=== PATIENT | male | born 1940 | race Caucasian/White ===

== ENCOUNTER 2017-02-08 16:00 | Outpatient (RCR) | payer MEDICARE, OTHER, SELFPAY | END 2017-03-02 | LOC: PT 16:00 | PROVIDERS: PCP Internal Medicine Adolescent Medicine; Visit Provider Internal Medicine Adolescent Medicine | DX: R42 Dizziness and giddiness (principal); H81.12 Benign paroxysmal vertigo, left ear | CPT/HCPCS: G8981; G8982; G8983; 97110; 97140; 97161 ==

== ENCOUNTER → 2017-03-30 08:47 | Outpatient (CLI) | payer MEDICARE, OTHER, SELFPAY ==
[2017-03-30 11:27] LABS: Alanine Aminotransferase 23 U/L (12-78); Albumin Level 3.9 gm/dL (3.4-5.0); Alkaline Phosphatase 94 U/L (46-116); Aspartate Amino Transferase 19 U/L (15-37); Bilirubin,Direct 0.3 mg/dL (0.0-0.2); Bilirubin,Total 1.2 mg/dL (0.2-1.0); Chol/HDL Ratio 2.6 (1-3.5); Cholesterol 125 mg/dL (140-200); HDL Cholesterol 49 mg/dL (27-67); LDL Cholesterol 68 mg/dL (0-130); Total Protein,Serum 6.8 gm/dL (6.4-8.2); Triglycerides 41 mg/dL (30-200); VLDL Cholesterol 8 mg/dL (0-40)
== END ==
PROVIDERS: PCP Internal Medicine Adolescent Medicine; Visit Provider Internal Medicine
DX: I25.10 Atherosclerotic heart disease of native coronary artery without angina pectoris (principal); I10 Essential (primary) hypertension; E78.5 Hyperlipidemia, unspecified; R01.1 Cardiac murmur, unspecified
CPT/HCPCS: 36415; 80061; 80076

== ENCOUNTER → 2017-09-26 08:37 | Outpatient (CLI) | payer MEDICARE, OTHER, SELFPAY ==
[2017-09-26 10:01] LABS: Alanine Aminotransferase 19 U/L (12-78); Albumin Level 3.7 gm/dL (3.4-5.0); Alkaline Phosphatase 96 U/L (46-116); Aspartate Amino Transferase 14 U/L (15-37); Bilirubin,Direct 0.2 mg/dL (0.0-0.2); Bilirubin,Indirect 0.6 mg/dL (0.0-0.9); Bilirubin,Total 0.8 mg/dL (0.2-1.0); Chol/HDL Ratio 2.7 (1-3.5); Cholesterol 114 mg/dL (140-200); HDL Cholesterol 43 mg/dL (27-67); LDL Cholesterol 62 mg/dL (0-130); Total Protein,Serum 6.5 gm/dL (6.4-8.2); Triglycerides 47 mg/dL (30-200); VLDL Cholesterol 9 mg/dL (0-40)
== END ==
PROVIDERS: Visit Provider Internal Medicine
DX: E78.5 Hyperlipidemia, unspecified (principal)
CPT/HCPCS: 36415; 80061; 80076

== ENCOUNTER → 2018-07-15 14:58 | Outpatient (CLI) | payer MEDICARE, BC, SELFPAY ==
--- NOTE | 2018-07-15 15:10 | XR_ITS ---
XR chest 2V HISTORY: ITS.REASON: sob ORDERING PHYSICIAN: Cyndie Leiva APRN PATIENT AGE: 78 years COMPARISON: 07/19/2016 FINDINGS: The cardiomediastinal silhouette and pulmonary vascularity are within normal limits. Stable 7 mm nodule left upper lobe. No lobar consolidation or collapse. Coronary artery calcification noted. No acute bony abnormalities. IMPRESSION: No acute finding. Coronary artery calcification
[2018-07-15 15:18] LABS: Basophils # 0.1 K/mm3 (0-0.2); Basophils % 0.6 % (0.1-2.0); Eosinophils # 0.2 K/mm3 (0.0-0.4); Hematocrit 39.6 % (42.0-52.0); Hemoglobin 13.3 g/dL (14.1-18.0); Lymphocytes # 1.9 K/mm3 (0.7-4.5); Mean Corpuscular HGB Conc 33.6 g/dL (31.8-35.4); Mean Corpuscular Hemoglobin 31.4 pg (27.0-31.2); Mean Corpuscular Volume 93.5 fl (80-94); Mean Platelet Volume 9.2 fl (7.4-10.4); Monocytes # 0.4 K/mm3 (0.1-1.0); Monocytes % 4.5 % (1.7-9.3); Neutrophils # 5.6 K/mm3 (1.8-7.8); Neutrophils % 68.9 % (37.0-80.0); Platelet Count 183 K/mm3 (142-424); Red Blood Count 4.24 M/mm3 (4.60-6.20); Red Cell Distribution Width 12.9 % (11.5-17.5); White Blood Count 8.1 K/mm3 (4.8-10.8)
[2018-07-15 16:49] LABS: Troponin I < 0.02 ng/ml (0.00-0.06)
[2018-07-15 16:55] LABS: Alanine Aminotransferase 25 U/L (12-78); Albumin Level 3.6 gm/dL (3.4-5.0); Alkaline Phosphatase 99 U/L (46-116); Anion Gap 12.5 mEq/L (5-15); Aspartate Amino Transferase 15 U/L (15-37); Bilirubin,Direct 0.2 mg/dL (0.0-0.2); Bilirubin,Indirect 0.5 mg/dL (0.0-0.9); Bilirubin,Total 0.7 mg/dL (0.2-1.0); Blood Urea Nitrogen 22 mg/dL (7-18); Calcium 8.8 mg/dL (8.5-10.1); Carbon Dioxide 26 mmol/L (21.0-32.0); Chloride 108 mmol/L (98-107); Creatinine,Serum 1.11 mg/dL (0.70-1.30); Estimated Glomerular Filt Rate 64 ml/min (>60); GFR (African American) 78 ML/MIN (>60); Glucose 125 mg/dL (74-106); Potassium 4.5 mmoL/L (3.5-5.1); Sodium 142 mmol/L (136-145); Thyroid Stimulating Hormone 0.06 uIU/ml (0.358-3.740); Total Protein,Serum 6.8 gm/dL (6.4-8.2)
[2018-07-15 18:22] LABS: D-Dimer 793 ng/mL (0-400)
== END ==
PROVIDERS: Visit Provider Nurse Practitioner Family
DX: E78.5 Hyperlipidemia, unspecified (principal); I11.9 Hypertensive heart disease without heart failure; I25.10 Atherosclerotic heart disease of native coronary artery without angina pectoris; R06.02 Shortness of breath
CPT/HCPCS: 36415; 71046; 80048; 80076; 83880; 84439; 84443; 84484; 85025; 85378

== ENCOUNTER → 2018-07-16 09:35 | Outpatient (CLI) | payer MEDICARE, BC, SELFPAY ==
--- NOTE | 2018-07-16 09:53 | CT_ITS ---
CT angio chest HISTORY: Shortness of air, elevated d-dimer ITS.REASON: for PE protocol ORDERING PHYSICIAN: Cyndie Leiva APRN PATIENT AGE: 78 years COMPARISON: 02/22/2011 TECHNIQUE: Axial images obtained following the administration of 75 mL of Optiray 350 . Sagittal, and coronal reformatted images are also generated and reviewed. All CT scans at the facility use one or more dose reduction, viz: automated exposure control, ma/kV adjustment per patient size (including targeted exams where dose is matched to indication, i.e. head), or iterative reconstruction technique. FINDINGS: No evidence of pulmonary embolus. There is mild dilatation of the ascending aorta at 4.3 cm. There is mild dilatation of the proximal descending thoracic aorta at 4 cm. Scattered small nodes are present in the mediastinum and right hilum not significant change. Coronary artery calcifications are present. There is COPD with hyperinflation and attenuation of the peripheral pulmonary vessels. No lobar consolidation or collapse. There is some pleural calcification in the left upper lobe anteriorly. Mild atelectatic or fibrotic changes are present in the left lower lobe anteriorly. Upper abdominal images show prior cholecystectomy. There is diverticulosis of the colon. Degenerative changes are present of the thoracic spine. IMPRESSION: 1. No evidence of pulmonary embolus. 2. Mild dilatation of the ascending and descending aorta. 3. No acute finding
== END ==
PROVIDERS: PCP Internal Medicine Adolescent Medicine; Visit Provider Nurse Practitioner Family
DX: R06.02 Shortness of breath; R79.89 Other specified abnormal findings of blood chemistry; E78.5 Hyperlipidemia, unspecified; I11.9 Hypertensive heart disease without heart failure; I25.10 Atherosclerotic heart disease of native coronary artery without angina pectoris; I48.91 Unspecified atrial fibrillation; R00.1 Bradycardia, unspecified; R01.1 Cardiac murmur, unspecified; Z95.5 Presence of coronary angioplasty implant and graft; G47.33 Obstructive sleep apnea (adult) (pediatric)
CPT/HCPCS: 71275

== ENCOUNTER → 2018-07-18 07:08 | Outpatient (CLI) | payer MEDICARE, BC, SELFPAY ==
--- NOTE | 2018-07-18 07:09 | NM_ITS ---
CARDIOLITE SPECT MYOCARDIAL PERFUSION LEXISCAN, REST AND STRESS: History: Coronary disease, hyperlipidemia, family history, shortness of breath. Procedure: Patient exercised on Dev protocol 6 metastases, resting heart rate was 80 bpm resting blood pressure 156/82, with exercise maximum heart rate achieved was 1 31 bpm which is greater than 85% of the maximum predicted heart rate and a blood pressure was 170/80. Test was stopped due to fatigue patient denied complained of chest pain. Patient has adequate exercise capacity achieved 7mets of workload on treadmill, the blood pressure response to exercise was adequate. Electrocardiogram: Resting electrocardiogram showed sinus rhythm premature ventricular complex, with exercise there is less than 1.[address] segment depression noted from the baseline EKG. The EKG portion of the exercise Myoview is negative for ischemia. Cardiac stress and resting SPECT images: Cardiac stress and rest SPECT images were obtained using technetium 99 Myoview 31.0 mCi stress and 10.8 mCi at rest. Gated SPECT further analysis of segmental wall motion and calculation of the ejection fraction also done. Cardiac stress and resting SPECT images show uniform myocardial activity without segmental perfusion abnormality, computer derived ejection fraction is 50% with no regional wall motion abnormality, right ventricle is normal size and contractility. Conclusion: 1. The EKG portion of the exercise Myoview is negative for ischemia, patient has adequate exercise capacity achieved 7mets of workload on treadmill, the blood pressure response to exercise was adequate, there was no exercise-induced chest discomfort. 2. No scintigraphic evidence of reversible ischemia seen at this level of exercise, computer derived ejection fraction 50% no regional wall motion abnormality, right ventricle is normal size and contractility. 3. Normal exercise Myoview study.
--- NOTE | 2018-07-18 07:09 | CA_ITS ---
PROCEDURE: 2-D M-mode and color Doppler study INDICATIONS FOR THE TEST: Chest pain COPD Heart Murmur Tobacco Smoking Palpitations Fatigue Syncope Edema Hypertension+Diabetes Mellitus Rheumatic Fever SOB DOMINGUEZ Obesity Hyperlipidemia+ Family History HD Additional History PATIENT INFORMATION HEIGHT: 69 WEIGHT: 202 GENDER: Male B/P: 155/89 2-D/M-MODE INTERPRETATION: 2-D MEASUREMENTS OBSERVED VALUES IN CMS Right Ventricular Dimension (RVDd) 2.7 Interventricular Septum (Thickness)(IVsd) 1.3 Left Ventricular Internal Dimensions(LVIDd) 5.0 Left Ventricular Posterior Wall (Thickness)(LVPWd) 1.2 Aortic Root 3.2 Aortic Cusp Separation 2.2 Left Atrial Dimensions (LAD) 3.9 2D 1. Left atrium is mildly enlarged, left ventricle is normal size, mild concentric left ventricular hypertrophy, visually estimated ejection fraction 55% with no regional wall motion abnormality. 2. The right atrium and the ventricular normal size and contractility. 3. The aortic valve is thickened and gastritis leaflet continue to display mobility. 4. The mitral and tricuspid valve leaflets are minimally thickened. 5. The pulmonic valve is poorly present. 6. No significant pericardial effusion noted. DOPPLER INTERROGATION: Doppler interrogation of the aortic, mitral and tricuspid valvular presence of mild to moderate mitral and mild tricuspid regurgitation, tricuspid regurgitation jet velocity is inadequate for calculation of the right ventricular systolic pressure, grade 1 diastolic dysfunction seen with tissue Doppler evidence of raised left atrial pressure. CONCLUSION: 1. Mildly enlarged left atrium, normal left ventricular size, mild concentric left ventricular hypertrophy, visually estimated ejection fraction 55% with no regional wall motion abnormality, grade 1 diastolic dysfunction seen with tissue Doppler evidence of raised left atrial pressure. 2. Thickened and calcified aortic valve without aortic stenosis aortic insufficiency. 3. Mild to moderate mitral and mild tricuspid regurgitation 4. No significant pericardial effusion noted.
--- NOTE | 2018-07-18 09:42 | HMH.ITSHM ---
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 [] CELECOXIB ASA ATORVASTATIN LEVOTHYROXINE DEXILANT HCTZ DOXAZOSIN
== END ==
PROVIDERS: PCP Internal Medicine Adolescent Medicine; Visit Provider Nurse Practitioner Family
DX: E78.5 Hyperlipidemia, unspecified (principal); I11.9 Hypertensive heart disease without heart failure; I25.10 Atherosclerotic heart disease of native coronary artery without angina pectoris; R06.02 Shortness of breath
CPT/HCPCS: 78452; 93017; 93306; A9502

== ENCOUNTER → 2018-07-31 13:31 | Outpatient (CLI) | payer MEDICARE, BC, SELFPAY ==
[2018-07-31 15:38] LABS: Thyroid Stimulating Hormone 0.07 uIU/ml (0.358-3.740)
[2018-07-31 17:40] LABS: Hemoglobin A1C 5.9 % (0.0-7.0)
[2018-08-02 07:34] LABS: Vitamin D 25 Hydroxy 42.8 ng/mL (30.0-100.0)
[2018-08-02 08:46] LABS: Vitamin B12 848 pg/mL (232-1245)
== END ==
PROVIDERS: Visit Provider Nurse Practitioner Family
DX: R73.09 Other abnormal glucose (principal); R53.83 Other fatigue
CPT/HCPCS: 36415; 82607; 82652; 83036; 84443

== ENCOUNTER → 2018-08-08 11:38 | Outpatient (CLI) | payer MEDICARE, BC, SELFPAY ==
--- NOTE | 2018-08-08 11:48 | XR_ITS ---
XR chest 2V HISTORY: ITS.REASON: SOB ORDERING PHYSICIAN: Alethea Loera APRN PATIENT AGE: 78 years COMPARISON: 07/15/2018 FINDINGS: The cardiomediastinal silhouette and pulmonary vascularity are within normal limits. No lobar consolidation or collapse. There is a nodular opacity left upper lobe anteriorly containing a central lucency. This represents a partially calcified lesion as noted on the recent CT scan of 07/16/2018. No acute bony abnormalities. IMPRESSION: No change with no acute finding
== END ==
PROVIDERS: PCP Internal Medicine Adolescent Medicine; Visit Provider Nurse Practitioner Family
DX: R06.02 Shortness of breath (principal)
CPT/HCPCS: 71046

== ENCOUNTER → 2018-09-12 14:16 | Outpatient (CLI) | payer MEDICARE, BC, SELFPAY ==
[2018-09-12 15:13] LABS: Basophils # 0.1 K/mm3 (0-0.2); Basophils % 0.5 % (0.1-2.0); Eosinophils # 0.3 K/mm3 (0.0-0.4); Eosinophils % 3.4 % (0.1-12.0); Hematocrit 37.8 % (42.0-52.0); Hemoglobin 12.2 g/dL (14.1-18.0); Lymphocytes # 1.9 K/mm3 (0.7-4.5); Lymphocytes % 21.5 % (10-50); Mean Corpuscular HGB Conc 32.4 g/dL (31.8-35.4); Mean Corpuscular Hemoglobin 29.8 pg (27.0-31.2); Mean Corpuscular Volume 92.1 fl (80-94); Mean Platelet Volume 8.5 fl (7.4-10.4); Monocytes # 0.4 K/mm3 (0.1-1.0); Monocytes % 4.4 % (1.7-9.3); Neutrophils # 6.2 K/mm3 (1.8-7.8); Neutrophils % 70.2 % (37.0-80.0); Platelet Count 177 K/mm3 (142-424); Red Cell Distribution Width 13.1 % (11.5-17.5); White Blood Count 8.9 K/mm3 (4.8-10.8)
[2018-09-12 15:54] LABS: Anion Gap 13.2 mEq/L (5-15); Blood Urea Nitrogen 22 mg/dL (7-18); Calcium 8.7 mg/dL (8.5-10.1); Carbon Dioxide 24 mmol/L (21.0-32.0); Chloride 109 mmol/L (98-107); Creatinine,Serum 1.21 mg/dL (0.70-1.30); Estimated Glomerular Filt Rate 58 ml/min (>60); GFR (African American) 70 ML/MIN (>60); Glucose 125 mg/dL (74-106); Potassium 4.2 mmoL/L (3.5-5.1); Sodium 142 mmol/L (136-145)
== END ==
PROVIDERS: Visit Provider Otolaryngology
DX: Z01.818 Encounter for other preprocedural examination (principal); C44.319 Basal cell carcinoma of skin of other parts of face
CPT/HCPCS: 36415; 80048; 85025; 93005

== ENCOUNTER → 2019-01-16 12:56 | Outpatient (CLI) | payer MEDICARE, BC, SELFPAY ==
--- NOTE | 2019-01-16 12:58 | MR_ITS ---
PROCEDURE: MR SHOULDER RT WO CON CLINICAL INDICATION: ROTATOR CUFF SYNDROME OF RIGHT SHOULDER Right shoulder pain, injury with pain with limited range of motion COMPARISON: No exams were available for comparison TECHNIQUE: Routine multiplanar multi echo sequences are performed without gadolinium enhancement. FINDINGS: There are complete tears of the supraspinatus and infraspinatus tendons. There is moderate retraction of the infraspinatus musculotendinous fibers and mild retraction of the supraspinatus musculotendinous fibers. Fluid is present in the sub acromial region with heterogeneous increased T2 signal in the subacromial fat. Hypertrophic changes are present at the acromioclavicular joint. There is high-riding humeral head. The subscapularis and teres minor tendons appear intact. No obvious labral tear. There is a small shoulder joint effusion. There is thinning of the bicipital tendon. Cannot confirm that the bicipital tendon is intact above the bicipital groove. Bicipital tendon is not well-visualized routinely in this area. Small amount fluid is present in the bicipital tendon sheath. IMPRESSION: 1. Complete tear is of the supraspinatus and infraspinatus tendons with retraction of the musculotendinous fibers with high-riding humeral head and osteoarthritic changes of the acromioclavicular joint. 2. Shoulder joint effusion. 3. Thinning of the bicipital tendon with fluid in the bicipital tendon sheath. Cannot confirm that the bicipital tendon is intact above the bicipital groove. Dictated by: Brodie Hamilton MD 01/18/2019 07:00 Electronically signed by Brodie Hamilton MD in [place] 01/18/2019 07:00
== END ==
PROVIDERS: PCP Internal Medicine Adolescent Medicine; Visit Provider Internal Medicine Adolescent Medicine
DX: M75.101 Unspecified rotator cuff tear or rupture of right shoulder, not specified as traumatic (principal)
CPT/HCPCS: 73221

== ENCOUNTER 2019-09-20 10:53 | Inpatient (IN) | payer MEDICARE, BC, SELFPAY ==
[2019-09-20] VITALS (8 sets, daily range): BP systolic 113–164; BP diastolic 60–79; PULSE 51–80; RESP 16–20; TEMP 36.6–37.2; O2SAT 95–99; BMI 31.0; BMI 28.7
--- NOTE | 2019-09-20 11:34 | CT_ITS ---
PROCEDURE: CT ABDOMEN W CON Patient Age:79Y CLINICAL HISTORY: Upper epigastric pain, this morning COMPARISON: [facility] CT angio chest from 07/16/2018 TECHNIQUE: 70 mL Optiray 350; IV contrast utilized. Axial images obtained with sagittal and coronal reformats. All CT scans at the facility use one or more dose reduction, viz: automated exposure control, ma/kV adjustment per patient size (including targeted exams where dose is matched to indication, i.e. head), or iterative reconstruction technique. FINDINGS: Pancreas: Ill-defined inferior margin and hazy stranding from the inferior margin of the pancreas into the root of the mesentery-findings suspect for acute pancreatitis and warrant correlation with amylase, lipase. The tail the pancreas appears satisfactory.. No pancreatic ductal dilatation and no common duct stones. No additional free fluid abdomen or pelvis elsewhere Liver no focal lesions. No significant intrahepatic biliary ductal dilatation. Upper normal bile ducts reflect previous cholecystectomy Cholecystectomy. Generous but normal common duct reflecting post cholecystectomy changes. No calculi along the course of common duct. Pancreatic duct does not appear to be dilated Spleen normal size. Adrenals unremarkable Kidneys. Normal enhancement at kidneys. No obstruction. Small bilateral renal cysts Left kidney: Small cyst upper pole measures up to 8.8 mm maximally. Right kidney.: Small 1 cm exophytic cyst off anterior upper pole mm size. Also noted small 3.5 mm nonobstructive calculus lower pole right kidney Mild stranding about both kidneys again noted reflecting some mild chronic changes. . Diffuse atherosclerotic calcification aorta. No aneurysm. But no free air. No free fluid here at the abdomen. Pelvis again was not imaged/not included on today's CT abdomen only study . Osseous structures. No focal lesions or acute findings. Degenerative disc changes most pronounced at L4/5 follow-up L5/S1 GI TRACT. Colonic diverticulosis.. Most extensive at the sigmoid colon and less numerous diverticuli throughout the descending colon up to the splenic flexure.. No evidence of acute diverticulitis on this study but the pelvis is not included The appendix is normal. Terminal ileum unremarkable. [id number] stool and gas at the right and transverse colon (Addendum note:) See that today's initial amylase and lipase lab was normal on this patient. However if epigastric pain persist follow-up amylase lipase may worthwhile as the CT appearance most suggestive of an acute pancreatitis by CT Alternative considerations for this appearance and hazy appearance root of the mesentery: . Possible mild inflammation involving the 3rd portion of duodenum with borderline wall thickening small here and small 1 cm diverticulum just at the junction of 2nd and 3rd portion the duodenum. Is unimpressive and common benign observation. .. Also in differential is mesenteritis/mesenteric adenitis, noting a few mildly prominent mesenteric lymph nodes IMPRESSION: 1..Definite hazy appearance along the inferior margin the pancreas suspect for early acute pancreatitis by CT. Clinical correlation required 2..Other incidental findings Nonobstructing 3.5 mm calculus lower pole right kidney Colonic diverticulosis but no diverticulitis (pelvis not imaged) Appendix normal Addendum note: I see that today's initial amylase and lipase lab was curiously normal on this patient. However if epigastric pain persist follow-up amylase lipase may worthwhile as appearance most suggestive of an acute pancreatitis by CT Other alternative considerations for this appeara
--- NOTE | 2019-09-20 11:34 | XR_ITS ---
PROCEDURE: XR CHEST 2V Patient Age:79Y CLINICAL HISTORY: epigastric pain Upper epigastric pain since this morning. Nonsmoker. COMPARISON: CXR CHEST(2 VIEWS-NOT PORTABLE) from 07/19/[address] angio chest from 07/16/2018 CT ABDOMEN W CON from 09/20/2019 FINDINGS: Upright the the the PA and lateral chest from today is compared to July 2016 The heart appears normal in size and stable. The hilar regions and slightly generous central markings appear similar and stable. Mediastinum unchanged but mildly dilated aortic knob stable and mildly tortuous descending aorta stable the Pulmonary vascularity, within normal limits. No CHF Minimal linear atelectasis and/or scarring right lung base most likely account for appearance here. No diff discrete focal pneumonia, nor acute pulmonary process identified. No pleural effusion but no pneumothorax. Stable small area of nodularity measuring 7 mm at the left upper lung project over the anterior left 2nd rib IMPRESSION: No significant acute findings. Mild chronic changes Minimal linear scarring or atelectasis right lung base. Dictated by: Rigo Shaikh MD 09/20/2019 14:28 Electronically signed by Rigo Shaikh MD in [place] 09/20/2019 14:28
--- NOTE | 2019-09-20 11:35 | HMH.EDGENADL ---
ED Disposition Clinical Impression: Acute pancreatitis Qualifiers: Pancreatitis type: unspecified pancreatitis type Acute pancreatitis complication: no infection or necrosis Qualified Code(s): K85.90 - Acute pancreatitis without necrosis or infection, unspecified Disposition: Admitted as Observation Condition on Discharge: Good - Critical Care Critical Care Time: No Attestation: On 09/20/19, the high probability of a clinically significant, sudden or life threatening deterioration of the following system(s) required my full and direct attention, intervention and personal management. The time I documented below is in addition to time spent performing reported procedures but includes the following listed in this critical care notation. Medical Decision Making - Ed Inquiry Pt receiving controlled substance: Yes Ed was queried for this patient: No Reason not queried -: Emergent pt cond-no time Risks and benefits of using a controlled substance: were not discussed with pt by me Vital Signs: 09/20/19 11:06 09/20/19 11:30 09/20/19 12:59 Temperature 98.9 F Temperature Source Oral Pulse Rate Pulse Rate [Right Radial] 62 64 53 L Respiratory Rate 18 Blood Pressure Blood Pressure [Right Arm] 137/72 126/60 164/76 H Blood Pressure Mean [Right Arm] 93 82 105 Blood Pressure Source [Right Arm] Automatic Cuff Automatic Cuff Automatic Cuff Blood Pressure Position Blood Pressure Position [Right Arm] Sitting Sitting Sitting 02 Sat by Pulse Oximetry 95 97 99 Oxygen Delivery Method Room Air Room Air Room Air 09/20/19 13:00 09/20/19 14:49 09/20/19 16:21 Temperature Temperature Source Pulse Rate Pulse Rate [Right Radial] 51 L 79 80 Respiratory Rate 20 20 Blood Pressure Blood Pressure [Right Arm] 164/76 H 145/65 H 137/79 Blood Pressure Mean [Right Arm] 105 91 98 Blood Pressure Source [Right Arm] Automatic Cuff Automatic Cuff Automatic Cuff Blood Pressure Position Blood Pressure Position [Right Arm] Sitting Supine 02 Sat by Pulse Oximetry 96 98 95 Oxygen Delivery Method Room Air Room Air Room Air 09/20/19 16:30 09/20/19 16:45 09/20/19 16:47 Temperature 98 F Temperature Source Oral Pulse Rate 78 Pulse Rate [Right Radial] Respiratory Rate 16 Blood Pressure 132/74 Blood Pressure [Right Arm] Blood Pressure Mean [Right Arm] Blood Pressure Source [Right Arm] Blood Pressure Position Sitting Blood Pressure Position [Right Arm] 02 Sat by Pulse Oximetry Oxygen Delivery Method Room Air Room Air Room Air - Lab Data Lab Results 09/20/19 11:28: WBC 14.2 H, RBC 4.15 L, Hgb 13.8 L, Hct 39.8 L, MCV 96.1 H, MCH 33.3 H, MCHC 34.7, RDW 13.3, Plt Count 158, MPV 8.6, Neut % (Auto) 78.7, Lymph % (Auto) 14.2, [place] % (Auto) 4.9, Eos % (Auto) 2.1, Baso % (Auto) 0.3, Neut # (Auto) 11.2 H, Lymph # (Auto) 2.0, [place] # (Auto) 0.7, Eos # (Auto) 0.3, Baso # (Auto) 0.0 09/20/19 11:28: Sodium 138, Potassium 4.3, Chloride 103, Carbon Dioxide 27, Anion Gap 12.3, BUN 16, Creatinine 0.90, Estimated Creat Clear 81, Estimated GFR 81, Est GFR ( Amer) 98, Glucose 115 H, Calcium 9.3, Troponin I < 0.01, Amylase 42, Lipase 219 09/20/19 11:28: Triglycerides 41, Cholesterol 128 L, LDL Cholesterol Direct 76.93 L, VLDL Cholesterol 8, HDL Cholesterol 41, Cholesterol/HDL Ratio 3.1 09/20/19 14:33: Troponin I < 0.01 Result diagrams: 09/20/19 11:28 09/20/19 11:28 Orders (Tests/Meds): ED MEDICATIONS Generic Name Dose Route Start Last Admin Trade Name Freq PRN Reason Stop Dose Admin Acetaminophen 650 mg 09/20/19 15:47 Acetaminophen 325mg Tab PO 10/20/19 15:46 Q4HP PRN As Needed for Fever or Pain Aspirin 81 mg 09/21/19 09:00 Aspirin 81mg Chewable Tablet PO 10/21/19 08:59 DAILY ADDIE Folic Acid 1 mg 09/21/19 09:00 Folic Acid 1mg Tablet PO 10/21/19 08:59 DAILY ADDIE Sodium Chloride 1,000 mls @ 100 mls/hr 09/20/19 15:47 09/20/19 16:25 Sod Chlor 0
--- NOTE | 2019-09-20 11:35 | PC.NURSE ---
notified rad of orders on pt
[2019-09-20 11:37] LABS: Basophils % 0.3 % (0.1-2.0); Eosinophils # 0.3 K/mm3 (0.0-0.4); Eosinophils % 2.1 % (0.1-12.0); Hematocrit 39.8 % (42.0-52.0); Hemoglobin 13.8 g/dL (14.1-18.0); Lymphocytes % 14.2 % (10-50); Mean Corpuscular HGB Conc 34.7 g/dL (31.8-35.4); Mean Corpuscular Hemoglobin 33.3 pg (27.0-31.2); Mean Corpuscular Volume 96.1 fl (80-94); Mean Platelet Volume 8.6 fl (7.4-10.4); Monocytes # 0.7 K/mm3 (0.1-1.0); Monocytes % 4.9 % (1.7-9.3); Neutrophils # 11.2 K/mm3 (1.8-7.8); Neutrophils % 78.7 % (37.0-80.0); Platelet Count 158 K/mm3 (142-424); Red Blood Count 4.15 M/mm3 (4.60-6.20); Red Cell Distribution Width 13.3 % (11.5-17.5); White Blood Count 14.2 K/mm3 (4.8-10.8)
--- NOTE | 2019-09-20 11:40 | ECG_ITS ---
APPROVED REPORT Exam: Resting ECG HR:62 bpm ECG Measurements Heart Rate 62 AXES MN 190 P 3 QRSd 90 QRS -14 QT 400 T -7 QTc 406 <Conclusion> Normal sinus rhythm Moderate voltage criteria for LVH, may be normal variant Borderline ECG Electronically signed by : Riley Jhaveri, 09/20/2019 16:50:41
[2019-09-20 11:42] LABS: Chloride 103 mmol/L (98-107); Potassium 4.3 mmoL/L (3.5-5.1); Sodium 138 mmol/L (136-145)
[2019-09-20 11:45] LABS: Amylase 42 U/L (30-110); Anion Gap 12.3 mEq/L (5-15); Blood Urea Nitrogen 16 mg/dl (9-20); Carbon Dioxide 27 mmol/L (22.0-30.0); Creatinine Clearance Estimated 81 mL/min (50-200); Estimated Glomerular Filt Rate 81 ml/min (>60); GFR (African American) 98 ML/MIN (>60); Lipase 219 U/L (23-300)
[2019-09-20 11:46] LABS: Calcium 9.3 mg/dl (8.4-10.2); Glucose 115 mg/dl (74-100)
[2019-09-20 12:01] LABS: Troponin I < 0.01 ng/ml (0.00-0.034)
--- NOTE | 2019-09-20 14:59 | PC.NURSE ---
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 stephens
--- NOTE | 2019-09-20 15:04 | PC.NURSE ---
Dr Martinez returned call.
[2019-09-20 15:10] LABS: Troponin I < 0.01 ng/ml (0.00-0.034)
--- NOTE | 2019-09-20 15:56 | PC.NURSE ---
REPORT CALLED TO FLOOR
[2019-09-20 16:56] LABS: Chol/HDL Ratio 3.1 (1-3.5); Cholesterol 128 mg/dl (140-200); HDL Cholesterol 41 mg/dl (40-60); Triglycerides 41 mg/dl (30-150); VLDL Cholesterol 8 mg/dL (0-40)
[2019-09-20 17:07] LABS: Direct LDL Cholesterol 76.93 mg/dL (100-129)
--- NOTE | 2019-09-20 18:31 | PC.NURSE ---
Pt has had miminal c/o since coming to floor at 1607. C/o of mild abd pain 06/12. States better than earlier. Cont to mx. Pt alert and oriented and able to make needs known. Teds in place and fluids infusing as ordered. VSS.
--- NOTE | 2019-09-20 18:55 | HMH.HP ---
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 He reports that he felt nauseated, thought he had some gas, and tried some OTC gas relief but the pain became worse. Eventually presented to the emergency department. Labs were normal, but CT scan of the abdomen showed evidence of hazy early pancreatitis and he was admitted to hospital for IV fluids given his clinical picture. Of note patient's triglycerides were normal, and he is status post cholecystectomy many years ago. He drinks alcohol extremely rarely. [facility] History I have reviewed the patient's past medical history: Yes Medical History: Reports:: Atrial Fibrillation, Coronary Artery Disease, Gastroesophageal Reflux Disease(GERD), Hyperlipidemia, Hypertension Denies:: Cancer, Diabetes Mellitus Type 1, Diabetes Mellitus Type 2, Internal Pacemaker, MRSA, Seizures *Have you ever received a pneumonia vaccine?: Yes *Have you received a flu vaccine this season?: Yes Other Medical History: Reports: Hypothyroidism. Denies: Blood Transfusion Reaction Laterality Cases: Bilateral: Other Other Surgeries: Yes: Cardiac Catheterization, Cholecystectomy, Coronary Stent, Skin Cancer Excision, Other. No: Pacemaker Amputation: No Fractures: No - *Social History Last grade of school completed: High school graduate Smoking Status: Never smoker Alcohol Intake: never Alcohol Intake Frequency:: other Substance Use Type: denies use *Occupational Status:: retired Housing: house Household Members: spouse *Travel in the last 8 weeks: None Family Hx:: Coronary Artery Disease, Heart Attack, Hyperlipidemia Review of Systems - Review of Systems Review of systems:: pertinent systems reviewed and negative unless documented below Meds Home Medications Medication Instructions Recorded Confirmed Type celecoxib 200 mg capsule 200 mg PO DAILY cap 08/03/17 09/20/19 History dexlansoprazole 60 mg 60 mg PO DAILY cap 08/03/17 09/20/19 History capsule,biphase delayed release doxazosin 2 mg tablet 4 mg PO QHS 08/03/17 09/20/19 History levothyroxine 175 mcg tablet 175 mcg PO DAILY tab 08/07/17 09/20/19 History Atorvastatin Calcium [Lipitor 80mg 80 mg PO DAILY 04/15/18 09/20/19 History Tablet] Aspirin 81 mg PO DAILY 09/20/19 09/20/19 History Folic Acid 1 mg PO DAILY 09/20/19 09/20/19 History lisinopriL [Lisinopril 5mg 5 mg PO DAILY 09/20/19 09/20/19 History Tablet] Allergies Allergy/AdvReac Type Severity Reaction Status Date / Time No Known Allergies Allergy Verified 10/10/18 16:08 Exam Vital signs and Labs for Last 24 Hours: Temp Pulse Resp BP Pulse Ox 98 F 78 16 132/74 95 09/20/19 16:47 09/20/19 16:47 09/20/19 16:47 09/20/19 16:47 09/20/19 16:21 Laboratory Results - last 24 hr 09/20/19 11:28: WBC 14.2 H, RBC 4.15 L, Hgb 13.8 L, Hct 39.8 L, MCV 96.1 H, MCH 33.3 H, MCHC 34.7, RDW 13.3, Plt Count 158, MPV 8.6, Neut % (Auto) 78.7, Lymph % (Auto) 14.2, [place] % (Auto) 4.9, Eos % (Auto) 2.1, Baso % (Auto) 0.3, Neut # (Auto) 11.2 H, Lymph # (Auto) 2.0, [place] # (Auto) 0.7, Eos # (Auto) 0.3, Baso # (Auto) 0.0 09/20/19 11:28: Sodium 138, Potassium 4.3, Chloride 103, Carbon Dioxide 27, Anion Gap 12.3, BUN 16, Creatinine 0.90, Estimated Creat Clear 81, Estimated GFR 81, Est GFR ( Amer) 98, Glucose 115 H, Calcium 9.3, Troponin I < 0.01, Amylase 42, Lipase 219 09/20/19 11:28: Triglycerides 41, Cholesterol 128 L, LDL Cholesterol Direct 76.93 L, VLDL Cholesterol 8, HDL Cholesterol 41, Cholesterol/HDL Ratio 3.1 09/20/19 14:33: Troponin I < 0.01 I & O for Last 24 hours: Intake & Output 09/18/19 09/19/19 09/20/19 09/21/19 11:59 11:59 11:59 11:59 Intake Total 240 / 240 Balance 240 /
--- NOTE | 2019-09-21 04:07 | PC.NURSE ---
A&OX4. PT TOLERATING RA WELL T/O SHIFT. PT HAS AMBULATED WELL TO AND FROM BR WITH STANDBY ASSIST. PT HAS C/O SLIGHT ABD PAIN X1 THIS SHIFT, ADMINISTERED TYLENOL PER MAY. ON REASSESSMENT, PT RESTING IN BED WITH EYES CLOSED. AT BEGINNING OF SHIFT, PT STATED THAT HE FELT LIKE HIS TONGUE HAD GOTTEN BIGGER, AND HE AND HIS SON BELIEVED IT WAS FROM THE CONTRAST GIVEN FOR THE CT SCAN IN THE ER. I ASSESSED HIS MOUTH, TONGUE AND BREATHING, ALL VSS AT THIS TIME WITH NO STRUGGLE TO BREATHE. ON REASSESSMENT, PT FELT LIKE HIS TONGUE WAS BACK TO NORMAL AND WAS HAVING NO FURTHER TROUBLE WITH IT. PT HAS HAD NO OTHER C/O THUS FAR, VSS WILL CONTINUE TO MONITOR.
[2019-09-21 04:41] VITALS: BP 108/61; PULSE 75; RESP 18; TEMP 37.4; O2SAT 92
[2019-09-21 05:00] VITALS: BMI 29.5
[2019-09-21 07:11] LABS: Basophils % 0.3 % (0.1-2.0); Eosinophils # 0.2 K/mm3 (0.0-0.4); Eosinophils % 1.3 % (0.1-12.0); Hematocrit 38.6 % (42.0-52.0); Hemoglobin 13.4 g/dL (14.1-18.0); Lymphocytes # 1.7 K/mm3 (0.7-4.5); Lymphocytes % 13.1 % (10-50); Mean Corpuscular HGB Conc 34.6 g/dL (31.8-35.4); Mean Corpuscular Hemoglobin 32.9 pg (27.0-31.2); Mean Corpuscular Volume 95.1 fl (80-94); Mean Platelet Volume 8.8 fl (7.4-10.4); Monocytes # 0.8 K/mm3 (0.1-1.0); Monocytes % 6.4 % (1.7-9.3); Neutrophils # 10.2 K/mm3 (1.8-7.8); Platelet Count 142 K/mm3 (142-424); Red Blood Count 4.06 M/mm3 (4.60-6.20); Red Cell Distribution Width 13.2 % (11.5-17.5); White Blood Count 12.9 K/mm3 (4.8-10.8)
[2019-09-21 07:21] LABS: Alanine Aminotransferase 12 U/L (12-78); Albumin Level 3.5 g/dl (3.5-5.0); Albumin/Globulin Ratio 1.2 (1.1-1.8); Alkaline Phosphatase 83 U/L (38-126); Anion Gap 11.3 mEq/L (5-15); Aspartate Amino Transferase 19 U/L (17-59); Bilirubin,Total 1.8 mg/dl (0.2-1.3); Blood Urea Nitrogen 14 mg/dl (9-20); Calcium 8.5 mg/dl (8.4-10.2); Carbon Dioxide 27 mmol/L (22.0-30.0); Chloride 104 mmol/L (98-107); Creatinine Clearance Estimated 77 mL/min (50-200); Estimated Glomerular Filt Rate 81 ml/min (>60); GFR (African American) 98 ML/MIN (>60); Globulin 2.9 g/dL (1.3-3.2); Glucose 103 mg/dl (74-100); Lipase 91 U/L (23-300); Potassium 4.3 mmoL/L (3.5-5.1); Sodium 138 mmol/L (136-145); Total Protein,Serum 6.4 g/dl (6.3-8.2)
[2019-09-21 07:22] LABS: Amylase < 30 U/L (30-110)
[2019-09-21 08:00] VITALS: BP 123/54; PULSE 67; RESP 17; TEMP 37; O2SAT 94
--- NOTE | 2019-09-21 08:12 | HMH.ACPN2 ---
Internal Medicine - PN: Subj *Date: 09/21/19 *Time: 08:12 Interval history: Patient's pain feels better, continues to have somewhat of a gnawing sensation, but clear liquids have not made this any worse. Does note that he felt some tongue swelling last night that resolved after about an hour, he thinks it is from the intravenous dye from the CT scan from the emergency department. Exam Vital signs and Labs for Last 24 Hours: Temp Pulse Resp BP Pulse Ox 99.3 F 75 18 108/61 L 92 L 09/21/19 04:41 09/21/19 04:41 09/21/19 04:41 09/21/19 04:41 09/21/19 04:41 Laboratory Results - last 24 hr 09/20/19 11:28: WBC 14.2 H, RBC 4.15 L, Hgb 13.8 L, Hct 39.8 L, MCV 96.1 H, MCH 33.3 H, MCHC 34.7, RDW 13.3, Plt Count 158, MPV 8.6, Neut % (Auto) 78.7, Lymph % (Auto) 14.2, [place] % (Auto) 4.9, Eos % (Auto) 2.1, Baso % (Auto) 0.3, Neut # (Auto) 11.2 H, Lymph # (Auto) 2.0, [place] # (Auto) 0.7, Eos # (Auto) 0.3, Baso # (Auto) 0.0 09/20/19 11:28: Sodium 138, Potassium 4.3, Chloride 103, Carbon Dioxide 27, Anion Gap 12.3, BUN 16, Creatinine 0.90, Estimated Creat Clear 81, Estimated GFR 81, Est GFR ( Amer) 98, Glucose 115 H, Calcium 9.3, Troponin I < 0.01, Amylase 42, Lipase 219 09/20/19 11:28: Triglycerides 41, Cholesterol 128 L, LDL Cholesterol Direct 76.93 L, VLDL Cholesterol 8, HDL Cholesterol 41, Cholesterol/HDL Ratio 3.1 09/20/19 14:33: Troponin I < 0.01 09/21/19 06:49: Sodium 138, Potassium 4.3, Chloride 104, Carbon Dioxide 27, Anion Gap 11.3, BUN 14, Creatinine 0.90, Estimated Creat Clear 77, Estimated GFR 81, Est GFR ( Amer) 98, Glucose 103 H, Calcium 8.5, Total Bilirubin 1.8 H, AST 19, ALT 12, Alkaline Phosphatase 83, Total Protein 6.4, Albumin 3.5, Globulin 2.9, Albumin/Globulin Ratio 1.2, Amylase < 30 L D, Lipase 91 09/21/19 06:49: WBC 12.9 H, RBC 4.06 L, Hgb 13.4 L, Hct 38.6 L, MCV 95.1 H, MCH 32.9 H, MCHC 34.6, RDW 13.2, Plt Count 142, MPV 8.8, Neut % (Auto) 79.0, Lymph % (Auto) 13.1, [place] % (Auto) 6.4, Eos % (Auto) 1.3, Baso % (Auto) 0.3, Neut # (Auto) 10.2 H, Lymph # (Auto) 1.7, [place] # (Auto) 0.8, Eos # (Auto) 0.2, Baso # (Auto) 0.0 I & O for Last 24 hours: Intake & Output 09/18/19 09/19/19 09/20/19 09/21/19 11:59 11:59 11:59 11:59 Intake Total 1482 / 1482 Balance 1482 / 1482 Weight 210 lb 199 lb 5 oz Narrative: Patient is alert, pleasant. No jaundice, no scleral icterus. Lungs are clear, well-expanded, no wheezing. Heart rate regular. Abdomen soft, no tenderness. No bruising. No rebound. No edema, clubbing or cyanosis. Neurologically intact. Skin clear. ENT clear. No evidence of tongue swelling this morning, no stridor. Assessment and Plan (1) Acute pancreatitis Current visit: Yes Status: Acute Qualifiers: Pancreatitis type: unspecified pancreatitis type Acute pancreatitis complication: no infection or necrosis Qualified Code(s): K85.90 - Acute pancreatitis without necrosis or infection, unspecified Category: Medical Code(s): K85.90 - Acute pancreatitis without necrosis or infection, unspecified - Assessment and plan all Dx Assessment and Plan for all problems:: Patient symptoms are improved, amylase and lipase and white counts are improving. However bilirubin is elevated. Unfortunately no bilirubin was done yesterday. I have no comparison. As result I will keep him today, especially in light of the tongue swelling. MRCP tomorrow given lack of etiology of pancreatitis and elevated bilirubin.
--- NOTE | 2019-09-21 11:31 | P.CONPHA_ITS ---
[facility] Pharmacy VTE Monitoring - Patient Demographics Admission date: 09/21/19 Report Date: 09/21/19 Time: 11:31 Allergies/Adverse Reactions: Patient Allergies No Known Allergies Allergy (Verified 10/10/18 16:08) Height: 1.75 m Weight: 90.407 kg Patient Problems: Current Active Problems Acute pancreatitis (Acute) - VTE Risk Labs: VTE Related Lab Results Hgb 13.4 g/dL (14.1-18.0) L 09/21/19 06:49 Hct 38.6 % (42.0-52.0) L 09/21/19 06:49 Plt Count 142 K/mm3 (142-424) 09/21/19 06:49 BUN 14 mg/dl (9-20) 09/21/19 06:49 Creatinine 0.90 mg/dl (0.66-1.25) 09/21/19 06:49 Estimated Creat Clear 77 mL/min (50-200) 09/21/19 06:49 Was VTE Risk Assessment Performed: Yes VTE Score: 5 VTE Risk Level: Low Risk - Prophylaxis Types of VTE Prophylaxis: TEDS Knee High (DIANE HOSE ORDERED) Location of Applied Device: Bilateral Lower Extremeties
[2019-09-21 15:50] VITALS: BP 131/67; PULSE 58; RESP 18; TEMP 36.6; O2SAT 97
[2019-09-21 20:00] VITALS: BP 138/70; PULSE 75; RESP 17; TEMP 36.6; O2SAT 96
--- NOTE | 2019-09-22 03:19 | PC.NURSE ---
A&OX4. PT TOLERATING RA WELL T/O SHIFT. PT HAS HAD NO C/O OF ABD PAIN, NA/VO, OR TONGUE PAIN/SWELLING T/O SHIFT. PT HAS BEEN UP AMBULATING IN ROOM, AND HAS TOLERATED DIET WELL. FAMILY AT BEDSIDE AT BEGINNING OF SHIFT. PT RESTING WELL T/O MAJORITY OF SHIFT. VSS WILL CONTINUE TO MONITOR.
[2019-09-22 03:45] VITALS: BP 130/71; PULSE 61; RESP 15; TEMP 36.9; O2SAT 90
[2019-09-22 05:00] VITALS: BMI 29.2
[2019-09-22 06:15] LABS: Basophils % 0.5 % (0.1-2.0); Eosinophils # 0.4 K/mm3 (0.0-0.4); Hemoglobin 12.4 g/dL (14.1-18.0); Lymphocytes # 1.7 K/mm3 (0.7-4.5); Lymphocytes % 19.9 % (10-50); Mean Corpuscular HGB Conc 33.6 g/dL (31.8-35.4); Mean Corpuscular Hemoglobin 32.6 pg (27.0-31.2); Mean Corpuscular Volume 97.2 fl (80-94); Mean Platelet Volume 8.8 fl (7.4-10.4); Monocytes # 0.5 K/mm3 (0.1-1.0); Monocytes % 6.1 % (1.7-9.3); Neutrophils % 68.5 % (37.0-80.0); Platelet Count 157 K/mm3 (142-424); Red Blood Count 3.81 M/mm3 (4.60-6.20); Red Cell Distribution Width 12.8 % (11.5-17.5); White Blood Count 8.7 K/mm3 (4.8-10.8)
[2019-09-22 06:19] LABS: Chloride 107 mmol/L (98-107); Sodium 139 mmol/L (136-145)
[2019-09-22 06:20] LABS: Potassium 4.7 mmoL/L (3.5-5.1)
[2019-09-22 06:22] LABS: Alanine Aminotransferase 10 U/L (12-78); Albumin Level 3.2 g/dl (3.5-5.0); Albumin/Globulin Ratio 1.2 (1.1-1.8); Alkaline Phosphatase 57 U/L (38-126); Anion Gap 7.7 mEq/L (5-15); Aspartate Amino Transferase 19 U/L (17-59); Blood Urea Nitrogen 11 mg/dl (9-20); Carbon Dioxide 29 mmol/L (22.0-30.0); Creatinine Clearance Estimated 76 mL/min (50-200); Estimated Glomerular Filt Rate 72 ml/min (>60); GFR (African American) 87 ML/MIN (>60); Globulin 2.6 g/dL (1.3-3.2); Total Protein,Serum 5.8 g/dl (6.3-8.2)
[2019-09-22 06:23] LABS: Calcium 8.4 mg/dl (8.4-10.2); Glucose 109 mg/dl (74-100)
--- NOTE | 2019-09-22 07:49 | MR_ITS ---
PROCEDURE: MR ABDOMEN WO CON CLINICAL INDICATION: PANCREATITIS Right upper quadrant pain, pancreatitis COMPARISON: CT ABDOMEN W CON from 09/20/2019 TECHNIQUE: Routine multiplanar multi echo sequences are performed without gadolinium enhancement. MRCP images FINDINGS: There has been a prior cholecystectomy. Liver, spleen, adrenal glands, have an unremarkable appearance. There is mild hazy increased T2 signal in the peripancreatic region at the area of the pancreatic head consistent with mild pancreatitis. The common bile duct and pancreatic duct have an unremarkable appearance. No ductal dilatation or common duct stones evident. IMPRESSION: 1. Acute pancreatitis of the head of the pancreas. 2. Prior cholecystectomy otherwise negative MRCP Dictated by: Brodie Hamilton MD 09/22/2019 10:01 Electronically signed by Brodie Hamilton MD in [place] 09/22/2019 10:01
[2019-09-22 08:00] VITALS: BP 145/78; PULSE 58; RESP 19; TEMP 36.6; O2SAT 93
[2019-09-22 09:36] VITALS: PULSE 58; RESP 19; O2SAT 93
[2019-09-22 15:29] VITALS: BMI 29.3
--- NOTE | 2019-09-22 15:56 | HMH.DCSUM ---
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 He reports that he felt nauseated, thought he had some gas, and tried some OTC gas relief but the pain became worse. Eventually presented to the emergency department. Labs were normal, but CT scan of the abdomen showed evidence of hazy early pancreatitis and he was admitted to hospital for IV fluids given his clinical picture. Of note patient's triglycerides were normal, and he is status post cholecystectomy many years ago. He drinks alcohol extremely rarely. Hospital Course Hospital Course: Patient was admitted, made n.p.o., given IV fluids, felt better almost immediately, and was allowed to return to clear liquids. Given the unclear etiology of his pancreatitis, triglyceride levels were checked which were normal. The patient does not drink alcohol to a significant degree and has had a cholecystectomy several years ago. MRCP was done this morning to quantify his bile duct revealed no pathology in the bile duct but easy, acute pancreatitis in the head of the pancreas as seen on the CT scan. Patient however felt much better. No abdominal pain on exam, tolerated a low-fat diet. He'll be discharged home to resume his regular medications, low fat diet instructions were given. I will see him in one week to decide whether further workup would be indicated. Objective Vital signs: Temp Pulse Resp BP Pulse Ox 97.9 F 58 L 19 145/78 H 93 L 09/22/19 08:00 09/22/19 09:36 09/22/19 09:36 09/22/19 08:00 09/22/19 09:36 no acute distress - *Routine HEENT Exam Head: Present: normocephalic Eye: Present: EOMI, PERRL ENT: Present: mucous membranes moist - *Routine Neck Exam Present: supple - *Routine Respiratory Exam Present: CTA bilaterally - *Routine Cardiovascular Exam Present: RRR - *Routine Abdominal Exam Present: soft, normoactive bowel sounds. Absent: tenderness - *Routine Extremities Exam Absent: cyanosis, clubbing, edema - *Routine Skin Exam Present: warm. Absent: rash - Detailed Eye Exam Eyelids: Bilateral normal inspection Results Labs on day of discharge: Labs from last 24 hours 09/22/19 09/22/19 06:01 06:01 WBC 8.7 D RBC 3.81 L Hgb 12.4 L Hct 37.0 L MCV 97.2 H MCH 32.6 H MCHC 33.6 RDW 12.8 Plt Count 157 MPV 8.8 Neut % (Auto) 68.5 Lymph % (Auto) 19.9 [place] % (Auto) 6.1 Eos % (Auto) 5.0 Baso % (Auto) 0.5 Neut # (Auto) 6.0 Lymph # (Auto) 1.7 [place] # (Auto) 0.5 Eos # (Auto) 0.4 Baso # (Auto) 0.0 Sodium 139 Potassium 4.7 Chloride 107 Carbon Dioxide 29 Anion Gap 7.7 BUN 11 Creatinine 1.00 Estimated Creat Clear 76 Estimated GFR 72 Est GFR ( Amer) 87 Glucose 109 H Calcium 8.4 Total Bilirubin 1.0 AST 19 ALT 10 L Alkaline Phosphatase 57 Total Protein 5.8 L Albumin 3.2 L Globulin 2.6 Albumin/Globulin Ratio 1.2 DS: Diagnosis - Discharge Diagnosis (1) Acute pancreatitis Status: Resolved Discharge Plan - Patient Discharge Instructions ACTIVITY: Continue current activity DIET: low fat, low cholesterol Patient Instructions: DI for Pancreatitis - Follow up Plan Follow up with: Riley Jhaveri MD [Primary Care Provider] - 1 week Disposition: Home, Self-Prison Medications: Home Medications Medication Instructions Recorded Confirmed Type celecoxib 200 mg capsule 200 mg PO DAILY cap 08/03/17 09/20/19 History doxazosin 2 mg tablet 4 mg PO HS 08/03/17 09/21/19 History levothyroxine 175 mcg tablet 175 mcg PO DAILY tab 08/07/17 09/20/19 History Atorvastatin Calcium [Lipitor 80mg 80 mg PO HS 04/15/18 09/21/19 History Tablet] Folic Acid 1 mg PO D
== END 2019-09-22 16:44 | disposition home or self-care (01) | DRG 440 ==
LOC: ER 15:09 → 2ND 15:27
PROVIDERS: Admitting Provider Emergency Medicine; Emergency Provider Emergency Medicine; PCP Internal Medicine Adolescent Medicine; Visit Provider Internal Medicine Adolescent Medicine
DX: K85.90 Acute pancreatitis without necrosis or infection, unspecified (principal); I48.91 Unspecified atrial fibrillation; I25.10 Atherosclerotic heart disease of native coronary artery without angina pectoris; I10 Essential (primary) hypertension; E03.9 Hypothyroidism, unspecified; Z95.5 Presence of coronary angioplasty implant and graft; Z79.82 Long term (current) use of aspirin; Z79.899 Other long term (current) drug therapy
CPT/HCPCS: 36415; 71046; 74160; 74181; 76376; 80048; 80053; 80061; 82150; 83690; 84484; 85025; 93005; 96374; 96375; 99284; J2405; Q9967

== ENCOUNTER 2020-01-26 09:29 | Emergency (ER) | payer MEDICARE, BC, SELFPAY ==
[2020-01-26 09:30] VITALS: BP 143/87; PULSE 83; RESP 16; TEMP 37.1; O2SAT 97; BMI 31.0
--- NOTE | 2020-01-26 10:09 | HMH.EDUTC ---
[facility] [place] Clinical Impression: Encounter for laboratory testing for COVID-19 virus Shingles Qualifiers: Herpes zoster complications: without complications Qualified Code(s): B02.9 - Zoster without complications Disposition: Home, Self-Care Condition on Discharge: Good Instructions: Shingles, Acyclovir Additional Instructions: Take medications as prescribed Shingles are contagious, make sure that you take precautions not to spread them Shingles (herpes zoster) causes pain and a blistered rash. The rash can appear anywhere on the body but will be on only one side of the body, the left or right. *The blisters scab over after a few days and heal in 2 to 4 weeks. *Take your medicines exactly as prescribed. Call your doctor or nurse call line if you think you are having a problem with your medicine. Antiviral medicine helps you get better faster and may help prevent later problems. *Try not to scratch or pick at the blisters. They will crust over and fall off on their own if you leave them alone. *Put cool, wet cloths on the area to relieve pain and itching. You can also use calamine lotion. Try not to use so much lotion that it cakes and is hard to get off. * Do not use thick ointment, such as petroleum jelly, on the sores. This will keep them from drying and healing. To help remove loose crusts, soak them in tap water. This can help decrease oozing, and dry and soothe the skin. Take an [id number] pain medicine, such as acetaminophen (Tylenol), ibuprofen (Advil, Motrin), or naproxen (Aleve). Read and follow all instructions on the label. Avoid close contact with people until the blisters have healed. It is very important for you to avoid contact with anyone who has never had chickenpox or the chickenpox vaccine. women, young babies, and anyone else who has a hard time fighting infection (such as someone with HIV, diabetes, or cancer) is especially at risk. Follow up with your Family Doctor if needed Return if needed Straight to ER if any life threatening symptoms You was tested for today for COVID19 your test result should be back in the next 24-48 hours, you may call to the [facility] later today or tomorrow to see if your test results are back and the result [phone] [facility] hours are 9am-9pm You was given a handout with instructions for Self Quarantine and Self isolation for while you wait on test results and what to do if they are positive If you are positive the Health Dept will be contacting you also Prescriptions: Acyclovir [Acyclovir 800mg tab] 800 mg PO 5XDAY 7 Days #35 tab Transmission Status: Pending to [facility] Referrals: Riley Jhaveri MD [Primary Care Provider] - As needed Time of Disposition: 10:25 Medical Decision Making - Ed Inquiry Pt receiving controlled substance: No Ed was queried for this patient: No Vital Signs: 01/26/20 09:30 Temperature 98.7 F Temperature Source Oral Pulse Rate [Right Brachial] 83 Respiratory Rate 16 Blood Pressure [Right Arm] 143/87 H Blood Pressure Mean [Right Arm] 105 Blood Pressure Source [Right Arm] Automatic Cuff Blood Pressure Position [Right Arm] Sitting 02 Sat by Pulse Oximetry 97 Oxygen Delivery Method Room Air Orders (Tests/Meds): ORDERS Category Date Time Status Covid-19 Nasal PCR Sendout Mark Routine Lab 01/26/20 09:35 Ordered [facility] [place] HPI - General Stated complaint: covid exposure Time Seen by Provider: 01/26/20 10:09 Mode of Arrival: Ambulatory Source of Information: Patient Limitations: No Limitations Description of Symptoms (Recalled from Triage Doc. by RN): PATIENT REQUESTING COVID TEST D/T EXPOSURE, C/O COUGH. ALSO STATES HE HAD A PIMPLE ON HIS RIGHT SHOULDER AND NOW HAS A RASH ON HIS LEFT SIDE. HEENT Symptoms (Recalled from RN notes): No Resp Symptoms (Recalled from RN notes): Yes Skin Symptoms (Recalled from RN notes): Yes MS Symptoms (Recalled from RN notes): No Functional Status (Recalled from RN notes): WNL
[2020-01-26 10:33] VITALS: BP 143/87; PULSE 83; RESP 16; TEMP 37.1; O2SAT 97
[2020-01-27 14:31] LABS: Covid-19 Nasal PCR Sendout Lex Positive
--- NOTE | 2020-01-27 16:23 | PC.NURSE ---
PT NOTIFIED OF POSITIVE COVID RESULTS
== END 2020-01-26 10:35 | disposition home or self-care (01) ==
PROVIDERS: Emergency Provider Nurse Practitioner; PCP Internal Medicine Adolescent Medicine
DX: Z20.828 Contact with and (suspected) exposure to other viral communicable diseases (principal); R05 Cough; R21 Rash and other nonspecific skin eruption
CPT/HCPCS: 99201; U0004

== ENCOUNTER → 2020-04-13 09:56 | Outpatient (CLI) | payer MEDICARE, BC, SELFPAY ==
[2020-04-13 10:53] LABS: Blood Urea Nitrogen 24 mg/dl (9-20); Estimated Glomerular Filt Rate 65 ml/min (>60); GFR (African American) 78 ML/MIN (>60)
== END ==
PROVIDERS: Visit Provider Physician Assistant
DX: Z01.812 Encounter for preprocedural laboratory examination (principal); I71.2 Thoracic aortic aneurysm, without rupture
CPT/HCPCS: 36415; 82565; 84520

== ENCOUNTER 2020-04-27 21:22 | Emergency (ER) | payer MEDICARE, BC, SELFPAY ==
[2020-04-27 21:24] VITALS: BP 157/75; PULSE 78; RESP 18; O2SAT 100; BMI 28.8
--- NOTE | 2020-04-27 21:31 | CT_ITS ---
PROCEDURE: CT HEAD/BRAIN WO CON CLINICAL INDICATION: N/V Dizziness, vomiting, weakness COMPARISON: No exams were available for comparison TECHNIQUE: Axial images obtained. All CT scans at the facility use one or more dose reduction, viz: automated exposure control, ma/kV adjustment per patient size (including targeted exams where dose is matched to indication, i.e. head), or iterative reconstruction technique. FINDINGS: No midline shift, mass effect, intracranial hemorrhage, hydrocephalus, or extra-axial fluid collection is evident. There is generalized atrophy with hypoattenuation of the periventricular white matter consistent with microangiopathic changes. The calvarium has an unremarkable appearance. No mastoid effusion. No sinus air-fluid level. IMPRESSION: No acute intracranial finding Dictated by: Brodie Hamilton MD 04/28/2020 06:45 Brodie Hamilton MD in [place] 04/28/2020 06:45
--- NOTE | 2020-04-27 21:39 | ECG_ITS ---
APPROVED REPORT Exam: Resting ECG HR:50 bpm ECG Measurements Heart Rate 50 AXES QRSd 100 QRS -14 QT 466 T 19 QTc 424 Conclusion NSR with sinus arrythmia Abnormal ECG Electronically signed by : Riley Jhaveri, 04/28/2020 17:47:13
[2020-04-27 21:45] LABS: Basophils # 0.1 K/mm3 (0-0.2); Basophils % 0.5 % (0.1-2.0); Eosinophils # 0.6 K/mm3 (0.0-0.4); Eosinophils % 3.5 % (0.1-12.0); Hematocrit 41.9 % (42.0-52.0); Hemoglobin 13.5 g/dL (14.1-18.0); Lymphocytes # 4.1 K/mm3 (0.7-4.5); Lymphocytes % 24.4 % (10-50); Mean Corpuscular HGB Conc 32.1 g/dL (31.8-35.4); Mean Corpuscular Hemoglobin 31.1 pg (27.0-31.2); Mean Corpuscular Volume 96.9 fl (80-94); Mean Platelet Volume 8.8 fl (7.4-10.4); Monocytes # 0.7 K/mm3 (0.1-1.0); Monocytes % 4.2 % (1.7-9.3); Neutrophils # 11.3 K/mm3 (1.8-7.8); Neutrophils % 67.4 % (37.0-80.0); Platelet Count 236 K/mm3 (142-424); Red Blood Count 4.32 M/mm3 (4.60-6.20); Red Cell Distribution Width 13.6 % (11.5-17.5); White Blood Count 16.8 K/mm3 (4.8-10.8)
[2020-04-27 21:48] LABS: Chloride 107 mmol/L (98-107); Sodium 138 mmol/L (136-145)
[2020-04-27 21:49] LABS: Potassium 3.1 mmoL/L (3.5-5.1)
[2020-04-27 21:51] LABS: Alanine Aminotransferase 22 U/L (12-78); Alkaline Phosphatase 111 U/L (38-126); Amylase 44 U/L (30-110); Anion Gap 14.1 mEq/L (5-15); Aspartate Amino Transferase 28 U/L (17-59); Bilirubin,Total 0.7 mg/dl (0.2-1.3); Blood Urea Nitrogen 20 mg/dl (9-20); Carbon Dioxide 20 mmol/L (22.0-30.0); Creatinine Clearance Estimated 68 mL/min (50-200); Estimated Glomerular Filt Rate 65 ml/min (>60); GFR (African American) 78 ML/MIN (>60)
[2020-04-27 21:52] LABS: Albumin Level 4.2 g/dl (3.5-5.0); Albumin/Globulin Ratio 1.3 (1.1-1.8); Calcium 9.3 mg/dl (8.4-10.2); Globulin 3.2 g/dL (1.3-3.2); Glucose 210 mg/dl (74-100); Lipase 99 U/L (23-300); Total Protein,Serum 7.4 g/dl (6.3-8.2)
[2020-04-27 21:53] LABS: MANUAL DIFFERENTIAL MANUAL DIFFERENTIAL (MANUAL DIFF)
--- NOTE | 2020-04-27 21:58 | HMH.EDDIZZ ---
ED Disposition Clinical Impression: Acute severe vertigo, TIA (transient ischemic attack) Disposition: Home, Self-Care Condition on Discharge: Good Instructions: DI for Vertigo Additional Instructions: call pcp and dr dorado this am Referrals: Riley Jhaveri MD [Primary Care Provider] - - Critical Care Critical Care Time: No Attestation: On 04/27/20, the high probability of a clinically significant, sudden or life threatening deterioration of the following system(s) required my full and direct attention, intervention and personal management. The time I documented below is in addition to time spent performing reported procedures but includes the following listed in this critical care notation. Medical Decision Making - Medical Records Medical records reviewed: Yes: I reviewed the patient's medical records. - Ed Inquiry Pt receiving controlled substance: No Vital Signs: 04/27/20 21:24 Pulse Rate [Left] 78 Respiratory Rate 18 Blood Pressure [Right Arm] 157/75 H Blood Pressure Mean [Right Arm] 102 Blood Pressure Source [Right Arm] Automatic Cuff Blood Pressure Position [Right Arm] Supine 02 Sat by Pulse Oximetry 100 Oxygen Delivery Method Room Air - Lab Data Lab results reviewed: Yes: I reviewed the patient's lab results. Lab Results 04/27/20 21:35: WBC 16.8 H, RBC 4.32 L, Hgb 13.5 L, Hct 41.9 L, MCV 96.9 H, MCH 31.1, MCHC 32.1, RDW 13.6, Plt Count 236, MPV 8.8, Neut % (Auto) 67.4, Lymph % (Auto) 24.4, [place] % (Auto) 4.2, Eos % (Auto) 3.5, Baso % (Auto) 0.5, Neut # (Auto) 11.3 H, Lymph # (Auto) 4.1, [place] # (Auto) 0.7, Eos # (Auto) 0.6 H, Baso # (Auto) 0.1, Total Counted 100, Neutrophils % (Manual) 80 H, Lymphocytes % (Manual) 16, Monocytes % (Manual) 1 L, Eosinophils % (Manual) 2, Basophils % (Manual) 1.0, Platelet Estimate Normal, RBC Morphology Not Reportable, Ovalocytes 1+, Acanthocytes (Spur) 1+, ESR 10 04/27/20 21:35: Sodium 138, Potassium 3.1 L, Chloride 107, Carbon Dioxide 20 L, Anion Gap 14.1, BUN 20, Creatinine 1.10, Estimated Creat Clear 68, Estimated GFR 65, Est GFR ( Amer) 78, Glucose 210 H, Calcium 9.3, Total Bilirubin 0.7, AST 28, ALT 22, Alkaline Phosphatase 111, Troponin I < 0.01, C-Reactive Protein 1.0, Total Protein 7.4 D, Albumin 4.2, Globulin 3.2, Albumin/Globulin Ratio 1.3, Amylase 44, Lipase 99, Procalcitonin 0.068 04/28/20 00:35: Lactate 2.4 H Result diagrams: 04/27/20 21:35 04/27/20 21:35 Orders (Tests/Meds): ED MEDICATIONS Generic Name Dose Route Start Last Admin Trade Name Freq PRN Reason Stop Dose Admin Sodium Chloride 1,000 mls @ 999 mls/hr 04/27/20 21:45 04/27/20 22:16 Sod Chlor 0.9% 1000ml Bag IV 04/27/20 22:45 999 mls/hr .Q1H1M ADDIE Administration Sodium Chloride 10 ml 04/28/20 00:51 Sodium Chloride 0.9% 10ml Syr (Rad Only) IV 05/28/20 00:50 NEEDED PRN Maintain IV Site Discontinued Medications Generic Name Dose Route Start Last Admin Trade Name Freq PRN Reason Stop Dose Admin Iopamidol 100 ml 04/28/20 00:46 04/27/20 23:40 Iopamidol-370 (76%);100ml Bottle IV 04/28/20 00:47 100 ml ONCE ONE Administration Iopamidol 100 ml 04/28/20 00:51 04/28/20 00:04 Iopamidol-370 (76%);100ml Bottle IV 04/28/20 00:52 100 ml ONCE ONE Administration Ondansetron HCl 4 mg 04/27/20 21:31 04/27/20 22:16 Ondansetron 4mg/2ml Vial IV 04/27/20 21:32 4 mg ONCE ONE Administration Prochlorperazine Edisylate 10 mg 04/27/20 22:06 04/27/20 22:16 Prochlorperazine 10mg/2ml Vial IV 04/27/20 22:07 10 mg ONCE ONE Administration Sodium Chloride 40 ml 04/28/20 00:46 04/27/20 23:40 0.9 % Sodium Chloride 50 Ml Vial IV 04/28/20 00:47 40 ml ONCE ONE Administration Sodium Chloride 10 ml 04/28/20 00:46 04/27/20 23:40 Sodium Chloride 0.9% 10ml Syr (Rad Only) IV 04/28/20 00:47 10 ml ONCE ONE Administration Sodium Chloride 40 ml 04/28/20 00:51 04/28/20 00:04 0.9 % Sodium Chloride 50 Ml Vial
[2020-04-27 22:10] LABS: Troponin I < 0.01 ng/ml (0.00-0.034)
[2020-04-27 22:11] LABS: Procalcitonin 0.068 ng/mL (0.0-2.0)
[2020-04-27 22:13] LABS: Erythrocyte Sedimentation Rate 10 mm/hr (0-20)
[2020-04-27 22:35] LABS: Acanthocytes 1+; Eosinophils % 2 % (0-3); Lymphocytes % 16 % (10-50); Monocytes % 1 % (2-9); Neutrophils % 80 % (42-76); Ovalocytes 1+; Platelet Estimate Normal; Total Cells Counted 100
--- NOTE | 2020-04-27 23:09 | CT_ITS ---
Procedure: CT ANGIO NECK CLINICAL HISTORY: Dizzy Dizziness, vomiting, weakness COMPARISON: CT CT ANGIO HEAD from 04/27/2020 TECHNIQUE: IV Contrast: 100ml Isovue 370 Axial images obtained with sagittal and coronal reformats. All CT scans at the facility use one or more dose reduction, viz: automated exposure control, ma/kV adjustment per patient size (including targeted exams where dose is matched to indication, i.e. head), or iterative reconstruction technique. FINDINGS: There is mild dilatation of the ascending and proximal descending thoracic aorta. Right carotid: Tortuosity of the common carotid artery noted. Calcific plaque is present at the distal right common carotid and proximal right internal carotid at the carotid bulb without significant stenosis. No evidence of dissection Left carotid: Calcific plaque is present involving the distal aspect of the left common carotid, carotid bulb, and proximal left internal carotid artery with approximately 50 percent stenosis. Tortuosity noted of the left internal carotid with a kink in the proximal left ICA with narrowing of approximately 50 percent at this area of kinking. The ICA distal to this region is unremarkable. No evidence of dissection Vertebrals: The left vertebral shows mild stenosis at the ostium with minimal plaque. Left vertebral is dominant. The right vertebral is small with some calcific plaque at its ostium. No evidence of dissection or occlusion. CTA head: Moderate calcific plaque is present involving the cavernous portion of both ICAs with approximately 50 percent stenosis in the right cavernous portion and 50-60 percent stenosis of the clinoid portion on the right and no aneurysm or dissection. The basilar artery and posterior circulation have an unremarkable appearance. No major intracranial occluded segments apparent. No enhancing lesions. And 50-60 percent stenosis of the clinoid portion of the left ICA. IMPRESSION: 1. 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 2. 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 Dictated by: Brodie Hamilton MD 04/28/2020 10:02 Brodie Hamilton MD in [place] 04/28/2020 10:02
--- NOTE | 2020-04-28 00:04 | CT_ITS ---
PROCEDURE: CT ABDOMEN PELVIS W CON CLINICAL INDICATION: N/V Nausea and vomiting with weakness COMPARISON: CT CT ABDOMEN W CON from 09/20/2019 TECHNIQUE: IV Contrast: 75ML Isovue 370 Oral Contrast None Axial images obtained with sagittal and coronal reformats. All CT scans at the facility use one or more dose reduction, viz: automated exposure control, ma/kV adjustment per patient size (including targeted exams where dose is matched to indication, i.e. head), or iterative reconstruction technique. FINDINGS: Prior cholecystectomy. The liver, spleen, adrenal glands, and pancreas have an unremarkable appearance. There are parapelvic renal cyst on both sides. There is a small hiatal hernia. There is mild thickening of the gastric antrum nonspecific. No evidence of appendicitis. There is extensive colonic diverticulosis but no evidence of diverticulitis. There is mild thickening of the hepatic flexure aspect of the colon which could be due to nondistention. No intestinal obstruction or free air. There is mild distention of the urinary bladder. The prostate is slightly enlarged at 5.5 cm. IMPRESSION: Mild thickening of the gastric antrum and of the hepatic flexure. This could be related to nondistention. Gastritis and colitis is also included in the differential diagnosis. Colonic diverticulosis without diverticulitis. Large prostate with mild distention of the urinary bladder. Dictated by: Brodie Hamilton MD 04/28/2020 09:47 Brodie Hamilton MD in [place] 04/28/2020 09:47
--- NOTE | 2020-04-28 00:04 | CT_ITS ---
PROCEDURE: CT ANGIO CHEST CLINCIAL INDICATION: AAA Follow-up aneurysm COMPARISON: CT [facility] CT angio chest from 07/16/2018 TECHNIQUE: IV Contrast: 70ML Isovue 370 Axial images obtained with sagittal and coronal reformats. All CT scans at the facility use one or more dose reduction, viz: automated exposure control, ma/kV adjustment per patient size (including targeted exams where dose is matched to indication, i.e. head), or iterative reconstruction technique. FINDINGS: There is mild dilatation of the ascending thoracic aorta at 4.1 cm. This is not significantly changed. No evidence of aortic dissection. No evidence of pulmonary embolus. No mediastinal or hilar mass. There are some mildly prominent mediastinal lymph nodes and hilar lymph nodes on both sides not significantly changed. Coronary artery calcifications are present. There is mild dilatation of the descending thoracic aorta at 3.8 cm unchanged. There is some minimal pleural calcification in the left upper lung anteriorly with some mild atelectatic or fibrotic changes in the lung bases. There is a small hiatal hernia. There has been a prior cholecystectomy. There are mild degenerative changes in the thoracic spine. IMPRESSION: 1. 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 2. No evidence of pulmonary embolus. 3. Mildly prominent mediastinal and hilar lymph nodes not significantly changed. Dictated by: Brodie Hamilton MD 04/28/2020 08:53 Brodie Hamilton MD in [facility] 04/28/2020 08:53
--- NOTE | 2020-04-28 00:29 | XR_ITS ---
PROCEDURE: XR CHEST PORTABLE CLINICAL HISTORY: N/V Nausea, vomiting, dizziness COMPARISON: CR CXR CHEST(2 VIEWS-NOT PORTABLE) from 07/19/2016 CR XR CHEST 2V from 09/20/[address] ANGIO CHEST from 04/28/2020 FINDINGS: The cardiomediastinal silhouette and pulmonary vascularity are within normal limits. There is a calcified granuloma in the left upper lobe. There is some vascular crowding in the right lung base. No lobar consolidation or collapse. COPD changes. No acute bony abnormalities. IMPRESSION: No acute findings. Dictated by: Brodie Hamilton MD 04/28/2020 05:40 Brodie Hamilton MD in [place] 04/28/2020 05:40
[2020-04-28 01:03] LABS: Lactic Acid 2.4 mmol/L (0.7-2.1)
[2020-04-28 01:57] LABS: Troponin I < 0.01 ng/ml (0.00-0.034)
[2020-04-28 02:28] VITALS: BP 148/72; PULSE 72; RESP 16; TEMP 37.1; O2SAT 96
== END 2020-04-28 02:32 | disposition home or self-care (01) ==
PROVIDERS: Emergency Provider Emergency Medicine; PCP Internal Medicine Adolescent Medicine
DX: G45.8 Other transient cerebral ischemic attacks and related syndromes (principal); R42 Dizziness and giddiness; I48.91 Unspecified atrial fibrillation; I25.10 Atherosclerotic heart disease of native coronary artery without angina pectoris; K21.9 Gastro-esophageal reflux disease without esophagitis; E78.5 Hyperlipidemia, unspecified; I10 Essential (primary) hypertension; Z79.899 Other long term (current) drug therapy
CPT/HCPCS: 70450; 70496; 70498; 71045; 71275; 74177; 80053; 82150; 83605; 83690; 84145; 84484; 85007; 85025; 85651; 86140; 87040; 93005; 96365; 96375; 99283; J2405; Q9967; U0003

== ENCOUNTER → 2020-10-13 11:16 | Outpatient (CLI) | payer MEDICARE, BC, SELFPAY ==
[2020-10-13 11:59] LABS: Basophils # 0.1 K/mm3 (0-0.2); Basophils % 0.6 % (0.1-2.0); Eosinophils # 0.3 K/mm3 (0.0-0.4); Eosinophils % 3.6 % (0.1-12.0); Hematocrit 40.4 % (42.0-52.0); Hemoglobin 13.6 g/dL (14.1-18.0); Lymphocytes # 1.9 K/mm3 (0.7-4.5); Lymphocytes % 24.2 % (10-50); Mean Corpuscular HGB Conc 33.7 g/dL (31.8-35.4); Mean Corpuscular Hemoglobin 31.9 pg (27.0-31.2); Mean Corpuscular Volume 94.5 fl (80-94); Mean Platelet Volume 9.2 fl (7.4-10.4); Monocytes # 0.5 K/mm3 (0.1-1.0); Monocytes % 5.9 % (1.7-9.3); Neutrophils # 5.2 K/mm3 (1.8-7.8); Neutrophils % 65.7 % (37.0-80.0); Platelet Count 168 K/mm3 (142-424); Red Blood Count 4.27 M/mm3 (4.60-6.20); Red Cell Distribution Width 13.2 % (11.5-17.5); White Blood Count 7.9 K/mm3 (4.8-10.8)
[2020-10-13 13:33] LABS: Chloride 108 mmol/L (98-107); Potassium 4.3 mmoL/L (3.5-5.1); Sodium 138 mmol/L (136-145)
[2020-10-13 13:35] LABS: Blood Urea Nitrogen 16 mg/dl (9-20); Estimated Glomerular Filt Rate 72 ml/min (>60); GFR (African American) 87 ML/MIN (>60)
[2020-10-13 13:36] LABS: Alanine Aminotransferase 14 U/L (12-78); Albumin Level 3.9 g/dl (3.5-5.0); Albumin/Globulin Ratio 1.4 (1.1-1.8); Alkaline Phosphatase 81 U/L (38-126); Anion Gap 11.3 mEq/L (5-15); Aspartate Amino Transferase 24 U/L (17-59); Bilirubin,Total 1.1 mg/dl (0.2-1.3); Calcium 8.9 mg/dl (8.4-10.2); Carbon Dioxide 23 mmol/L (22.0-30.0); Chol/HDL Ratio 2.8 (1-3.5); Cholesterol 121 mg/dl (140-200); Globulin 2.7 g/dL (1.3-3.2); Glucose 100 mg/dl (74-100); HDL Cholesterol 44 mg/dl (40-60); Total Protein,Serum 6.6 g/dl (6.3-8.2); Triglycerides 52 mg/dl (30-150); VLDL Cholesterol 10 mg/dL (0-40)
[2020-10-13 13:54] LABS: Direct LDL Cholesterol 62.32 mg/dL (100-129)
[2020-10-13 14:11] LABS: Thyroid Stimulating Hormone 0.07 uIU/mL (0.465-4.68)
[2020-10-13 14:38] LABS: Vitamin B12 > 1000 pg/mL (239-931)
[2020-10-13 15:51] LABS: Alanine Aminotransferase 14 U/L (12-78); Aspartate Amino Transferase 24 U/L (17-59); Bilirubin,Unconjugated 0.6 mg/dL (0.0-1.1)
[2020-10-13 15:52] LABS: Albumin Level 3.9 g/dl (3.5-5.0); Alkaline Phosphatase 81 U/L (38-126); Bilirubin,Direct 0.5 mg/dl (0.0-0.4); Bilirubin,Indirect 0.6 mg/dL (0.0-0.9); Bilirubin,Total 1.1 mg/dl (0.2-1.3); Total Protein,Serum 6.6 g/dl (6.3-8.2)
== END ==
PROVIDERS: Visit Provider Physician Assistant
DX: E78.5 Hyperlipidemia, unspecified (principal); I11.9 Hypertensive heart disease without heart failure; I25.10 Atherosclerotic heart disease of native coronary artery without angina pectoris; I71.2 Thoracic aortic aneurysm, without rupture; R01.1 Cardiac murmur, unspecified; Z95.5 Presence of coronary angioplasty implant and graft
CPT/HCPCS: 36415; 80053; 80061; 80076; 82607; 84443; 85025

== ENCOUNTER → 2020-10-18 13:21 | Outpatient (CLI) | payer MEDICARE, BC, SELFPAY ==
--- NOTE | 2020-10-18 13:22 | CA_ITS ---
APPROVED REPORT Coating Technician: SISSY Laterality: Bilateral Study Quality: Adequate Indications: dizziness,CAD Doppler Spectral Velocity Analysis dICA (R) 76.90/23.90 cm/s dICA (L) 77.20/31.20 cm/s Chasidy (R) 73.90/12.70 cm/s Chasidy (L) 77.00/29.70 cm/s pICA (R) 107.10/29.10 cm/s pICA (L) 108.70/25.40 cm/s dCCA (R) 66.50/17.20 cm/s dCCA (L) 87.30/25.90 cm/s pCCA (R) 85.50/18.40 cm/s pCCA (L) 63.50/14.90 cm/s Vert (R) 62.50/15.40 cm/s Vert (L) 63.20/17.40 cm/s ICA/CCA 1.60 ICA/CCA 1.30 Findings Duplex evaluation demonstrates stenosis of the right proximal internal carotid artery in the range of 20-49% with PSV <140 cm/sec, EDV <100 cm/sec, and IC/CC Ratio <4.0.Duplex evaluation demonstrates stenosis of the left proximal internal carotid artery in the range of 20-49% with PSV <140 cm/sec, EDV <100 cm/sec, and IC/CC Ratio <4.0.Antegrade flow seen bilateral vertebral arteries. 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 Electronically signed by : Brodie Hamilton MD 10/18/2020 16:50:23
== END ==
PROVIDERS: PCP Internal Medicine Adolescent Medicine; Visit Provider Physician Assistant
DX: R42 Dizziness and giddiness (principal)
CPT/HCPCS: 93880

== ENCOUNTER → 2021-02-16 06:42 | Outpatient (CLI) | payer MEDICARE, BC, SELFPAY ==
--- NOTE | 2021-02-16 06:47 | CT_ITS ---
PROCEDURE: CT SINUS WO CON CLINICAL HISTORY: CHRONIC MAXILLARY SINUSITIS COMPARISON: CT SINUS CT SINUS (MAX-FACIAL W/O CONT) from 07/09/[address] ANGIO NECK from 04/27/2020 TECHNIQUE: Axial images obtained with sagittal and coronal reformats. All CT scans at the facility use one or more dose reduction, viz: automated exposure control, ma/kV adjustment per patient size (including targeted exams where dose is matched to indication, i.e. head), or iterative reconstruction technique. FINDINGS: No significant mucosal thickening. No sinus masses or air-fluid level. Only minimal rightward nasal septal deviation centrally with no significant nasal canal narrowing. There is minimal mucosal thickening along the inferior aspect of the sphenoid sinus. Minimal calcification noted along the posterior aspect of both globes not significantly changed. The TMJs have an unremarkable appearance. No mastoid effusion. The middle ears are well aerated. Scattered small nodes are present in the neck. Multilevel degenerative disc disease is present in the cervical spine with facet and uncovertebral hypertrophy causing varying degrees foraminal narrowing on the right at C3-C4, on the left at C4-C5, and bilaterally at C5-C6. Also noted is a lucent lesion involving the odontoid process measuring 13 x 8 mm mm. This may be slightly larger compared to 04/27/2020 previously measuring 10 x 7 mm. The margins are well-circumscribed without obvious internal matrix. There does appear to be some cortical discontinuity along the inferior aspect of the lesion on the left. IMPRESSION: 1. Only minimal mucosal thickening involves the inferior aspect of the sphenoid sinus. No air-fluid levels or other significant anomalies apparent of the sinuses. 2. Lytic lesion of the adult oil process. The margins are well-circumscribed without obvious internal matrix. This appears slightly larger compared to 04/27/2020. There also appears to be some discontinuity of the cortex along the inferior margin on the left. This could represent a prominent geode. Cannot exclude the possibility a neoplastic process such as a metastatic lesion. MRI of the cervical spine without and with contrast may provide further evaluation. 3. Degenerative changes of the cervical spine. Dictated by: Brodie Hamilton MD 02/17/2021 07:59 Brodie Hamilton MD in [place] 02/17/2021 07:59
[2021-02-16 08:36] LABS: Basophils # 0.1 K/mm3 (0-0.2); Eosinophils # 0.7 K/mm3 (0.0-0.4); Eosinophils % 6.6 % (0.1-12.0); Hematocrit 41.5 % (42.0-52.0); Hemoglobin 14.2 g/dL (14.1-18.0); Lymphocytes # 2.4 K/mm3 (0.7-4.5); Lymphocytes % 23.3 % (10-50); Mean Corpuscular HGB Conc 34.2 g/dL (31.8-35.4); Mean Corpuscular Hemoglobin 32.1 pg (27.0-31.2); Mean Corpuscular Volume 93.8 fl (80-94); Mean Platelet Volume 9.9 fl (7.4-10.4); Monocytes # 0.6 K/mm3 (0.1-1.0); Monocytes % 5.7 % (1.7-9.3); Neutrophils # 6.4 K/mm3 (1.8-7.8); Neutrophils % 63.4 % (37.0-80.0); Platelet Count 217 K/mm3 (142-424); Red Blood Count 4.42 M/mm3 (4.60-6.20); Red Cell Distribution Width 13.1 % (11.5-17.5); White Blood Count 10.1 K/mm3 (4.8-10.8)
[2021-02-16 09:22] LABS: Alanine Aminotransferase 18 U/L (12-78); Albumin Level 4.1 g/dl (3.5-5.0); Albumin/Globulin Ratio 1.6 (1.1-1.8); Alkaline Phosphatase 84 U/L (38-126); Anion Gap 9.1 mEq/L (5-15); Aspartate Amino Transferase 30 U/L (17-59); Bilirubin,Total 0.9 mg/dl (0.2-1.3); Blood Urea Nitrogen 21 mg/dl (9-20); Calcium 9.3 mg/dl (8.4-10.2); Carbon Dioxide 29 mmol/L (22.0-30.0); Chloride 106 mmol/L (98-107); Chol/HDL Ratio 2.4 (1-3.5); Cholesterol 122 mg/dl (140-200); Estimated Glomerular Filt Rate 72 ml/min (>60); GFR (African American) 87 ML/MIN (>60); Globulin 2.6 g/dL (1.3-3.2); Glucose 105 mg/dl (74-100); HDL Cholesterol 50 mg/dl (40-60); Potassium 5.1 mmoL/L (3.5-5.1); Sodium 139 mmol/L (136-145); Total Protein,Serum 6.7 g/dl (6.3-8.2); Triglycerides 46 mg/dl (30-150); VLDL Cholesterol 9 mg/dL (0-40)
[2021-02-16 09:33] LABS: Direct LDL Cholesterol 61.94 mg/dL (100-129)
[2021-02-16 09:52] LABS: Thyroid Stimulating Hormone 0.09 uIU/mL (0.465-4.68)
[2021-02-16 10:11] LABS: Vitamin B12 459 pg/mL (239-931)
== END ==
PROVIDERS: PCP Internal Medicine Adolescent Medicine; Visit Provider Internal Medicine Adolescent Medicine
DX: J32.0 Chronic maxillary sinusitis (principal); E78.5 Hyperlipidemia, unspecified; I48.20 Chronic atrial fibrillation, unspecified
CPT/HCPCS: 36415; 70486; 80053; 80061; 82607; 84443; 85025

== ENCOUNTER → 2021-03-03 16:50 | Outpatient (CLI) | payer MEDICARE, BC, SELFPAY ==
--- NOTE | 2021-03-03 16:55 | MR_ITS ---
PROCEDURE INFORMATION: Exam: MR Cervical Spine Without Contrast Exam date and time: 03/03/2021 4:55 PM Age: 80 years old Clinical indication: Abnormal findings; Abnormal xray or scan of neck and cervical spine; Patient HX: Abnormal CT of sinuses, chronic neck and shoulder pain; Additional info: Abnomal x-ray TECHNIQUE: Imaging protocol: Multiplanar magnetic resonance images of the cervical spine without contrast. COMPARISON: CT ANGIO CHEST 04/28/2020 12:01 AM FINDINGS: Vertebrae: No acute fracture. A T2 hyperintense, T1 hypointense lesion is seen in the dens measuring up to 1.2 cm, not substantially changed in size from 04/27/2020, though new from 02/06/2015. No additional lesions are seen in the cervical or upper thoracic spine. Spinal cord: Normal signal. No cord compression. C2-C3: No significant disc disease. No significant spinal stenosis. C3-C4: Posterior disc osteophyte complex, facet hypertrophy and ligamentum flavum thickening contribute to mild spinal canal stenosis. Moderate bilateral foraminal stenosis. C4-C5: Posterior disc osteophyte complex, facet hypertrophy and ligamentum flavum thickening without substantial canal stenosis. Mild bilateral foraminal stenosis. C5-C6: Posterior disc osteophyte complex, facet hypertrophy and ligamentum flavum thickening contribute to mild spinal canal stenosis and mild to moderate bilateral foraminal stenosis. C6-C7: Posterior disc osteophyte complex, facet hypertrophy and ligamentum flavum thickening without substantial canal stenosis. No substantial foraminal stenosis. C7-T1: There is mild degenerative anterolisthesis of C7 on T1. In combination with ligamentum flavum thickening, this contributes to mild spinal canal stenosis and moderate left foraminal stenosis. Soft tissues: Unremarkable. Vertebral arteries: Expected flow voids in the vertebral arteries. IMPRESSION: 1. A lytic T2 hyperintense lesion is seen in the dens, not substantially change in size from 04/27/2020. No definite aggressive features are seen. This could reflect a degenerative or other benign cystic lesion, though MRI of the cervical spine with and without contrast is recommended for further evaluation. 2. Multilevel cervical spondylosis as detailed above.
== END ==
PROVIDERS: PCP Internal Medicine Adolescent Medicine; Visit Provider Internal Medicine Adolescent Medicine
DX: M89.9 Disorder of bone, unspecified (principal); M54.2 Cervicalgia; R93.89 Abnormal findings on diagnostic imaging of other specified body structures
CPT/HCPCS: 72141

== ENCOUNTER → 2021-04-12 10:26 | Outpatient (CLI) | payer MEDICARE, BC, SELFPAY ==
[2021-04-12 11:11] LABS: Blood Urea Nitrogen 20 mg/dl (9-20); Estimated Glomerular Filt Rate 64 ml/min (>60); GFR (African American) 78 ML/MIN (>60)
== END ==
PROVIDERS: PCP Internal Medicine Adolescent Medicine; Visit Provider Nurse Practitioner Family
DX: Z01.812 Encounter for preprocedural laboratory examination (principal)
CPT/HCPCS: 36415; 82565; 84520

== ENCOUNTER → 2021-04-20 08:57 | Outpatient (CLI) | payer MEDICARE, BC, SELFPAY ==
--- NOTE | 2021-04-20 08:57 | CT_ITS ---
FINAL REPORT CLINICAL HISTORY: thoracic aortic aneurysm FINDINGS: Thin section axial CT images of the chest were obtained with contrast. 3D reformatted images were also obtained. This study was performed with techniques to keep radiation doses as low as reasonably achievable (ALARA). Individualized dose reduction techniques using automated exposure control or adjustment of mA and/or kV according to the patient's size were employed. There is no evidence of pulmonary embolism. There is stable ectasia of the ascending thoracic aorta measuring up to 4.1 cm. There is aneurysmal dilatation of the proximal descending thoracic aorta measuring up to 3.8 cm, stable. There is no dissection. There are multiple borderline size mediastinal and hilar nodes which are stable and may be reactive. There is no evidence of pulmonary mass or nodule. There is mild atelectasis or scarring. Limited images of the upper abdomen demonstrate changes of cholecystectomy. IMPRESSION: No evidence of pulmonary embolism. Stable ectasia of the ascending thoracic aorta. Stable aneurysmal dilatation of of the proximal descending thoracic aorta. Multiple stable borderline sized mediastinal and hilar nodes. Reviewed, Interpreted and Dictated by Norman Hearn III, MD Transcribed by Antonietta Cruz Authenticated by Norman Hearn III, MD on 04/20/2021 10:38:45 AM [facility]
== END ==
PROVIDERS: PCP Internal Medicine Adolescent Medicine; Visit Provider Nurse Practitioner Family
DX: E78.2 Mixed hyperlipidemia (principal); I11.9 Hypertensive heart disease without heart failure; I25.10 Atherosclerotic heart disease of native coronary artery without angina pectoris; I71.2 Thoracic aortic aneurysm, without rupture; R01.1 Cardiac murmur, unspecified; Z95.5 Presence of coronary angioplasty implant and graft
CPT/HCPCS: 71275; Q9967

== ENCOUNTER 2021-05-09 10:26 | Emergency (ER) | payer MEDICARE, BC, SELFPAY ==
[2021-05-09 11:32] VITALS: BP 149/75; PULSE 57; RESP 18; TEMP 36.6; O2SAT 96; BMI 28.8
--- NOTE | 2021-05-09 12:17 | HMH.EDUTC ---
[facility] [place] Clinical Impression: Strep throat Sinusitis Qualifiers: Sinusitis location: unspecified location Chronicity: acute Recurrence: non-recurrent Qualified Code(s): J01.90 - Acute sinusitis, unspecified Disposition: Home, Self-Care Condition on Discharge: Good Instructions: Strep Throat, DI for Sinusitis, DI for Strep Throat Additional Instructions: Drink plenty of fluids. Take tylenol or ibuprofen for pain or fever. Take the medications as directed. Follow up with your regular doctor. GO TO THE ER FOR ANY WORSENING SYMPTOMS Throw your tooth brush away and get a new one. Prescriptions: Amoxicillin/Potassium Clav [Amox-Clav 875-125 mg Tablet] 1 tab PO BID #20 tab Transmission Status: Received by [facility] Benzonatate [Benzonatate 100mg cap] 100 mg PO TIDP PRN #30 cap PRN Reason: Cough Transmission Status: Received by [facility] Referrals: Riley Jhaveri MD [Primary Care Provider] - Time of Disposition: 12:27 Medical Decision Making - Medical Records Medical records reviewed: No: I reviewed the patient's medical records. - Ed Inquiry Pt receiving controlled substance: No Vital Signs: 05/09/21 11:32 05/09/21 12:45 Temperature 98 F 98 F Temperature Source Oral Pulse Rate 57 L Pulse Rate [Left] 57 L Respiratory Rate 18 18 Blood Pressure 149/75 H Blood Pressure [Right Arm] 149/75 H Blood Pressure Mean [Right Arm] 99 02 Sat by Pulse Oximetry 96 - Lab Data Lab results reviewed: Yes: I reviewed the patient's lab results. Lab Results 05/09/21 11:34: Strep Scn Rapid Clinic Positive A [facility] [place] HPI - General Stated complaint: cough,sore throat,sinus,congested Time Seen by Provider: 05/09/21 11:35 Mode of Arrival: Ambulatory Source of Information: Patient Limitations: No Limitations Description of Symptoms (Recalled from Triage Doc. by RN): pt c/o a cough, sore throat, bilateral ear aches and nasal drainage x1 wk. HEENT Symptoms (Recalled from RN notes): Yes Resp Symptoms (Recalled from RN notes): Yes Skin Symptoms (Recalled from RN notes): No MS Symptoms (Recalled from RN notes): No Functional Status (Recalled from RN notes): wnl - History of Present Illness Provider Complaint: He c/o sore throat, dry cough, low grade fever and feeling bad for the past 1 week. - Related Data Home Medications Medication Instructions Recorded Confirmed celecoxib 200 mg capsule 200 mg PO DAILY cap 08/03/17 04/20/21 doxazosin 2 mg tablet 4 mg PO HS 08/03/17 04/20/21 levothyroxine 175 mcg tablet 175 mcg PO DAILY tab 08/07/17 04/20/21 Atorvastatin Calcium [Lipitor 80mg 80 mg PO HS 04/15/18 04/20/21 Tablet*] Folic Acid 1 mg PO DAILY 09/20/19 04/20/21 Aspirin [Aspirin 81mg EC Tab] 81 mg PO DAILY 09/21/19 04/20/21 mecobalamin (vitamin B12) 1,000 1,000 mcg PO DAILY 09/23/19 04/20/21 mcg chewable tablet cholecalciferol (vitamin D3) 50 50 mcg PO DAILY 04/13/20 04/20/21 mcg (2,000 unit) capsule hydrochlorothiazide 25 mg tablet 25 mg PO DAILY PRN 04/13/20 04/20/21 Previous Rx's Medication Instructions Recorded cetirizine 10 mg tablet 10 mg PO DAILY PRN #30 tab 04/20/21 fluticasone propionate 50 1 spray INTRANASAL DAILY 7 Days 04/20/21 mcg/actuation nasal #16 g spray,suspension Amoxicillin/Potassium Clav 1 tab PO BID #20 tab 05/09/21 [Amox-Clav 875-125 mg Tablet] Benzonatate [Benzonatate 100mg 100 mg PO TIDP PRN #30 cap 05/09/21 cap] Allergies Allergy/AdvReac Type Severity Reaction Status Date / Time No Known Allergies Allergy Verified 04/20/21 10:50 - Worker's Comp Is this a Worker's Comp case?: No [facility] History - Hepatitis A Screen Drug use history?: No High risk sexual behaviors?: No History of sexually transmitted infection?: No Currently employed?: No Childcare worker?: No Do you have indoor plumbing?: Yes Do you have electricity?: Yes Attestation statement:: This patient has been scre
[2021-05-09 12:45] VITALS: BP 149/75; PULSE 57; RESP 18; TEMP 36.6
[2021-05-09 19:04] LABS: UTC Strep Screen (Rapid) Positive (Negative)
== END 2021-05-09 12:46 | disposition home or self-care (01) ==
PROVIDERS: Emergency Provider Nurse Practitioner Family; PCP Internal Medicine Adolescent Medicine
DX: J02.0 Streptococcal pharyngitis (principal); B95.0 Streptococcus, group A, as the cause of diseases classified elsewhere; J01.90 Acute sinusitis, unspecified; H92.03 Otalgia, bilateral; I10 Essential (primary) hypertension; I25.10 Atherosclerotic heart disease of native coronary artery without angina pectoris; I48.91 Unspecified atrial fibrillation; K21.9 Gastro-esophageal reflux disease without esophagitis; E78.5 Hyperlipidemia, unspecified; E03.9 Hypothyroidism, unspecified; Z79.51 Long term (current) use of inhaled steroids; Z79.82 Long term (current) use of aspirin; Z79.899 Other long term (current) drug therapy; Z82.49 Family history of ischemic heart disease and other diseases of the circulatory system; Z83.438 Family history of other disorder of lipoprotein metabolism and other lipidemia
CPT/HCPCS: 87880; 99213; G0463

== ENCOUNTER 2021-09-16 08:00 | Outpatient (RCR) | payer MEDICARE, BC, SELFPAY ==
--- NOTE | 2021-09-06 10:34 | HMH.PTOPEV ---
PT Outpatient Evaluation Rehab PT Outpatient Evaluation Start: 09/06/21 09:54 Freq: Status: Active Protocol: Document 09/06/21 09:55 NIKITA (Rec: 09/06/21 10:34 NIKITA [id number]) Electronically Signed By Emile Torres, CRAIG 09/06/21 09:55 Outpatient Therapy Subjective History Subjective History This is the initial Physical Therapy evaluation for OSMIN Adam. Pt is an 81 y/o male referred to PT for c/o L side cervical and upper trapezius pain. Pt reprots insidious onset of pain ~ 1 month ago. Pt states he has seen MD 2x w/ muscle relaxers being prescribed. Pt does note decrease in pain after 2nd prescription. Pt reports most pain is with turning head to left, but he has no c/o radicular S&S into LUE. Chief Complaint Pain,Stiff Symptom Type Ache,Sharp,Dull,Stabbing Symptoms Relieved By Rest/Positioning,Prescription Meds Symptoms Aggravated By Twisting Prior Functional Limitations None Current Functional Limitations Driving,Sleeping,Recreation Activity Symptom Description Intermittent Level of pain today (0-10) 0 Pain scale - at its best (0-10) 0 Pain scale - at its worst (0-10) 9 Cervical Eval Palpation Cervical Muscles L CT Junction,L Upper Trapezius Posture Head/C-Spine Posture Sitting Position Extended,C-Spine Flattened Head/C-Spine Posture Standing Position Extended,C-Spine Flattened Passive Joint Mobility Cervical PIVM Dec: R C4/5 L C4/5 R C5/6 L C5/6 R C6/7 L C6/7 R C7/T1 L C7/T1 MMT Bilateral Deltoid (C5) 5 Normal Biceps Brachii Strength Grade 5 Normal Wrist Extension Strength Grade 5 Normal Triceps Brachii Strength Grade 5 Normal Wrist Flexion Strength Grade 5 Normal Special Test C-Spine Foraminal Compression (Spurling) Negative Left,Negative Right Test C-Spine Foraminal Distraction Test Negative C-Spine Compression Test Negative Left,Negative Right Outpatient Therapy Assessment Impairments Problems/Impairmments Palpation Tendern
== END 2021-09-16 08:05 | disposition home or self-care (01) ==
LOC: PT 08:00
PROVIDERS: PCP Internal Medicine Adolescent Medicine; Visit Provider Internal Medicine Adolescent Medicine
DX: S46.812A Strain of other muscles, fascia and tendons at shoulder and upper arm level, left arm, initial encounter (principal)
CPT/HCPCS: 97010; 97012; 97014; 97035; 97110; 97140; 97163; G0283

== ENCOUNTER → 2021-10-13 09:09 | Outpatient (CLI) | payer MEDICARE, BC, SELFPAY ==
--- NOTE | 2021-10-13 09:10 | CA_ITS ---
APPROVED REPORT EXAM: Comprehensive 2D, Doppler, and color-flow Echocardiogram Induction Coordination Power Engineer: EDWARD Abdullahi, RVS Ht: 5 ft 9 in Wt: 193lbs BSA: 2.03 HR: 50 bpm BP: 118/72 mmHg Rhythm: Bradycardia Indications: MURMUR, AAA, CAR,HTN,HLD, MR 2D Dimensions Aortic Root 3.56 cm LA Volume 68.50 mL Left Atrium 4.27 cm LA Volume Index 33.70 mL/m2 (M/F) 16-34 LVOT 2.13 cm (M/F) 1.5-2.5 Ascending Aorta 3.39 cm M-Mode Dimensions RVDd 3.14 cm (0.9-2.6) LA Diam 3.96 cm (1.9-4.0) LVDd 5.27 cm (3.5-5.7) Ao Diam 3.88 cm (2.0-3.7) LVDs 3.65 cm (3.5-5.7) IVSd 1.61 cm (0.6-1.1) PWd 1.44 cm (0.6-1.1) EF (Teich) 57.90% EPSs 0.85 cm FS 30.70% EDV (Teich) 133.60 mL TAPSE 1.70 (<1.7) ESV (Teich) 56.30 mL LV Diastology E Decel Time 383.00 (160-240 msec) E/A Ratio 0.91 MED E' 5.40 (< 7 cm/sec) MED A' 7.10 cm/s E'/MED E' Ratio 11.33 (>14) LAT E' 9.20 (<10 cm/sec) LAT A' 7.80 cm/s E/LAT E' Ratio 6.65 (>14) Pulm Vein s 42.00 cm/sec Aortic Valve LVOT Max 74.00 (70-110 cm/s) LVOT VTI 18.36 cm AoV Peak Jared. 146.00 (50-130 cm/s) AO Peak GR. 8.60 mmHg AO Mean GR. 3.90 (<5 mmHg) AO VTI 29.49 (18-25 cm) EMILY (VTI) 2.22 (2.5-4.5 cm2) Mitral Valve MV A Velocity 67.00 (40-130 cm/s) E/A Ratio 0.91 MV Decel. Time 383.00 (160-240 ms) MV Mean Gr. 0.80 (<2mmHg) MV PHT 110.00 ms Pulmonary Valve PV Peak Velocity 77.00 (50-150 cm/s) MD End VMAX 186.00 cm/s Tricuspid Valve TR P. Velocity 214.00 cm/s RAP Estimate 10.00 mmHg RVSP 28.30 mmHg Left Ventricle Left atrium is mildly enlarged, left ventricle normal size mild concentric left ventricular hypertrophy, estimated ejection fraction 55% with no regional wall motion abnormality, grade 1 diastolic dysfunction seen without tissue Doppler evidence of raise left atrial pressure. Right Ventricle Right atrium and right ventricle mildly enlarged with normal contractility. Aortic Valve Aortic valve is minimally thickened and fibrosed there is aortic stenosis, there is mild aortic insufficiency. Mitral Valve Mitral valve leaflets are minimally thickened, there is mild mitral regurgitation. Tricuspid Valve Tricuspid valve grossly normal, there is mild tricuspid regurgitation, calculated right ventricular systolic pressure is 26 mmHg. Pulmonic Valve Pulmonic valve is poorly visualized. Great Vessels Aortic root is normal size. Inferior vena cava normal size with normal inspiratory collapse. Pericardium No significant pericardial effusion noted. Conclusion 1. Mild biatrial enlargement, normal left ventricular size, mild concentric left ventricular hypertrophy, estimated ejection fraction 55% with no regional wall motion abnormality, grade 1 diastolic dysfunction seen without tissue Doppler evidence of raise left atrial pressure. 2. Mildly enlarged right ventricle with normal contractility. 3. Mild aortic, mild mitral and tricuspid regurgitation, calculated right ventricular systolic pressure is 26mmHg. 4. No significant pericardial effusion noted. 5. Inferior vena cava normal 7 normal inspiratory collapse. Electronically signed by : eDjuan Barrios MD 10/14/2021 15:50:34
== END ==
PROVIDERS: PCP Internal Medicine Adolescent Medicine; Visit Provider Physician Assistant
DX: E78.2 Mixed hyperlipidemia (principal); I11.9 Hypertensive heart disease without heart failure; I25.10 Atherosclerotic heart disease of native coronary artery without angina pectoris; I34.0 Nonrheumatic mitral (valve) insufficiency; I71.2 Thoracic aortic aneurysm, without rupture; Z95.5 Presence of coronary angioplasty implant and graft
CPT/HCPCS: 93306

== ENCOUNTER → 2021-11-09 09:34 | Outpatient (CLI) | payer MEDICARE, BC, SELFPAY ==
--- NOTE | 2021-11-09 09:40 | XR_ITS ---
FINAL REPORT CLINICAL HISTORY: RT SHOULDER PAIN FINDINGS: Right shoulder Three views were obtained. There is no acute fracture or dislocation. There is mild AC and glenohumeral joint degenerative change. There is spurring along the undersurface of the acromion with significant subacromial space narrowing, rotator cuff tear is not excluded. No soft tissue abnormality is identified. IMPRESSION: Possible rotator cuff tear. If indicated, MRI may be helpful. Mild degenerative changes of the AC and glenohumeral joints. Reviewed, Interpreted and Dictated by Norman Hearn III, MD Transcribed by Diana Thorpe Authenticated and [facility]
== END ==
PROVIDERS: PCP Internal Medicine Adolescent Medicine; Visit Provider Internal Medicine Adolescent Medicine
DX: M25.511 Pain in right shoulder (principal)
CPT/HCPCS: 73030

== ENCOUNTER 2021-11-12 21:00 | Emergency (ER) | payer MEDICARE, BC, SELFPAY ==
[2021-11-12 21:10] VITALS: BP 00/00; PULSE 0; RESP 0; TEMP -17.7; TEMP 0; O2SAT 0
[2021-11-12 21:18] VITALS: BP 130/80; PULSE 81; RESP 18; TEMP 36.6; O2SAT 98
== END 2021-11-12 21:28 | disposition left against medical advice (07) ==
LOC: ER 21:08
PROVIDERS: Emergency Provider Emergency Medicine; PCP Internal Medicine Adolescent Medicine
DX: Z53.21 Procedure and treatment not carried out due to patient leaving prior to being seen by health care provider (principal)

== ENCOUNTER 2021-12-17 09:17 | Emergency (ER) | payer MEDICARE, BC, SELFPAY ==
[2021-12-17 09:30] VITALS: BP 153/86; PULSE 96; RESP 22; TEMP 36.8; O2SAT 97; BMI 29.0
--- NOTE | 2021-12-17 09:30 | XR_ITS ---
PROCEDURE INFORMATION: Exam: XR Left Ribs with PA Chest Exam date and time: 12/17/2021 9:35 AM Age: 81 years old Clinical indication: Injury or trauma; Fall; Chest wall; Blunt trauma TECHNIQUE: Imaging protocol: Radiologic exam of the Left ribs with PA chest. Views: 3 views COMPARISON: CT ANGIO CHEST 04/20/2021 9:13 AM FINDINGS: Lungs: There is no pulmonary consolidation. Pleural spaces: There is a left upper lobe pleural plaque. There is no pleural effusion. Heart/Mediastinum: No cardiomegaly. Bones/joints: There is no acute fracture. There are degenerative changes of the spine. IMPRESSION: No acute left rib fracture.
--- NOTE | 2021-12-17 09:42 | EXP.UTC ---
Discharge Plan Disposition Patient Disposition: Home, Self-Care Condition: Good Prescriptions Prescriptions: No Action celecoxib [Celebrex] 200 mg capsule 200 mg PO DAILY atorvastatin 80 MG tablet 80 mg PO HS levothyroxine 150 mcg Tablet 150 mcg PO DAILY folic acid 1 MG tablet 1 mg PO DAILY aspirin 81 MG tablet,delayed release (DR/EC) 81 mg PO DAILY Referrals Follow up/Referrals: Riley Jhaveri MD [Primary Care Provider] - See instructions Activity Restrictions/Add. Instructions Additional Instructions/Restrictions: Ice to the area may help a little with the soreness and pain make sure to put something between you and the ice pack and moist heat may help Over the counter Motrin and/or Tylenol for pain if you can take it If you continued to have pain follow up with your Family Doctor Straight to ER if any life threatening symptoms Clinical Impressions Clinical Impression: Contusion of rib on left side Instructions Patient Instructions: DI for Rib Contusion Discharge ED Provider: Dee Acosta [facility] [place] HPI General Stated complaint: Fell 12/08@home LT rib pain Mode of Arrival: Ambulatory Source of Information: Patient Limitations: No Limitations Time Seen by Provider: 12/17/21 09:42 Description of Symptoms (Recalled from Triage Doc. by RN): PATIENT REPORTS TRIPPING OVER A BARN PANEL AND FALLING ON GRAVEL LAST SUNDAY NIGHT. HE C/O LEFT RIB PAIN THAT IS WORSE WITH MOVING AND LYING DOWN HEENT Symptoms (Recalled from RN notes): No Resp Symptoms (Recalled from RN notes): No Skin Symptoms (Recalled from RN notes): No MS Symptoms (Recalled from RN notes): Yes Functional Status (Recalled from RN notes): WNL History of Present Illness Provider Complaint: Patient state that last week he was going out to the barn to plug up some 4 wheelers when he tripped and fell over barn panel and landed on his left side States that he feels like he may have broken some ribs States that he is having pain in his left ribs that is worse when he lays down Denies SOA Denies abdominal pain States that ribs felt a little better when he slept sitting up in the recliner States that he also bruised his right knee and cut his hand but that is better now and just wants to get his ribs checked Related Data Home Medications Medication Instructions Recorded Confirmed celecoxib 200 mg capsule (Celebrex) 200 mg PO DAILY Arthritis 08/03/17 12/17/21 atorvastatin 80 mg tablet 80 mg PO HS Cholesterol 04/15/18 12/17/21 folic acid 1 mg tablet 1 mg PO DAILY Supplement 09/20/19 12/17/21 aspirin 81 mg tablet,delayed 81 mg PO DAILY CIRCULATION 09/21/19 12/17/21 release levothyroxine 150 mcg tablet 150 mcg PO DAILY THYROID 12/17/21 12/17/21 Allergies Allergy/AdvReac Type Severity Reaction Status Date / Time No Known Allergies Allergy Verified 10/11/21 10:09 Worker's Comp Is this a Worker's Comp case?: No PFSH PFSH Medical History (Updated 12/17/21 @ 10:33 by Dee Acosta APRN) Moderate mitral regurgitation Thoracic aortic aneurysm Surgical History (Updated 12/17/21 @ 09:41 by Teresita Fuentes RN) History of cholecystectomy Social History (Updated 12/17/21 @ 09:41 by Teresita Fuentes RN) Smoking Status: Never smoker alcohol intake: never substance use type: denies use current occupational status: retired Travel in the last 8 weeks: Inside the [place] household members: spouse housing: house current occupation: farm current occupational exposures/hazards: No caffeine: Yes ROS Obtained: Yes All systems reviewed & no additional complaints except as documented and Yes Systems reviewed as appropriate & no additional complaints except as documented Constitutional Constitutional: Reports system reviewed and no additional complaints, except as documented and Reports as per HPI Cardiovascular Cardiovascular: Reports system reviewed and no additional complaints, except as do
[2021-12-17 10:31] VITALS: BP 153/86; PULSE 96; RESP 22; TEMP 36.8; O2SAT 97
== END 2021-12-17 10:35 | disposition home or self-care (01) ==
PROVIDERS: Emergency Provider Nurse Practitioner; PCP Internal Medicine Adolescent Medicine
DX: S20.212A Contusion of left front wall of thorax, initial encounter (principal); W01.0XXA Fall on same level from slipping, tripping and stumbling without subsequent striking against object, initial encounter; Y92.71 Barn as the place of occurrence of the external cause
CPT/HCPCS: 71101; 99212; G0463

== ENCOUNTER → 2022-04-27 09:36 | Outpatient (CLI) | payer MEDICARE, BC, SELFPAY ==
--- NOTE | 2022-04-27 09:50 | CA_ITS ---
FINAL REPORT TECHNIQUE: Color Doppler, duplex Doppler and millan scale sonography of the bilateral neck arterial vasculature was performed. Velocities were measured in the carotid arteries. Stenosis evaluation based on the validated velocity criteria. CLINICAL HISTORY: matthew COMPARISON: 10/18/2020 FINDINGS: The peak systolic velocity of the right common carotid artery is 153 cm/s. The peak systolic velocity of the right internal carotid artery is 108 cm/s and end diastolic velocity 21 cm/s. The ICA/CCA ratio is 0.7. A mild amount of plaque is present. The right external carotid artery is patent. The right vertebral artery is patent with antegrade flow. The peak systolic velocity of the left common carotid artery is 81 cm/s. The peak systolic velocity of the left internal carotid artery is 182 cm/s and end diastolic velocity 39 cm/s. The ICA/CCA ratio is 2.4. A moderate amount of plaque is present. The left external carotid artery is patent.The left vertebral artery is patent with antegrade flow. Findings have worsened compared to the prior study consistent with worsening stenosis. IMPRESSION: Less than 50% carotid stenoses on the right with 50-69% carotid stenosis on the left. Bilateral patent vertebral arteries with antegrade flow. Consider correlation with CTA or MRA to further evaluate. Reviewed, Interpreted and Dictated by Norman Hearn III, MD Transcribed by Sheba Og Authenticated and [facility]
--- NOTE | 2022-04-27 10:41 | CT_ITS ---
FINAL REPORT TECHNIQUE: Postcontrast axial images of the chest were performed in a CTA protocol. This study was performed with techniques to keep radiation doses as low as reasonably achievable, (ALARA). Individualized dose reduction technique using automated exposure control or adjustment of mA and/or kV according to the patient's size were employed. CLINICAL HISTORY: thoracic aneurysm COMPARISON: 04/20/2021 FINDINGS: There are mildly enlarged mediastinal and hilar lymph nodes. The heart is normal in size. The ascending thoracic aorta measures 44 mm, unchanged from prior exam. Descending thoracic aorta measures 33 mm, also unchanged from prior exam. There is no evidence of dissection. There is no filling defect to suggest pulmonary embolism. Mild pulmonary scarring is seen. No lung infiltrate or mass is identified. The images of the upper abdomen demonstrate postoperative changes of cholecystectomy. IMPRESSION: Stable ascending and descending thoracic aortic aneurysms. Reviewed, Interpreted and Dictated by Norman Hearn III, MD Transcribed by Lanette Ramírez Authenticated and [facility]
[2022-04-27 10:54] LABS: Blood Urea Nitrogen 20 mg/dl (9-20); Estimated Glomerular Filt Rate 64 ml/min (>60); GFR (African American) 78 ML/MIN (>60)
== END ==
PROVIDERS: Internal Medicine; PCP Internal Medicine Adolescent Medicine; Visit Provider Physician Assistant
DX: E78.2 Mixed hyperlipidemia (principal); I11.9 Hypertensive heart disease without heart failure; I25.10 Atherosclerotic heart disease of native coronary artery without angina pectoris; I34.0 Nonrheumatic mitral (valve) insufficiency; I48.0 Paroxysmal atrial fibrillation; R42 Dizziness and giddiness; Z95.5 Presence of coronary angioplasty implant and graft; I71.20 Thoracic aortic aneurysm, without rupture, unspecified
CPT/HCPCS: 36415; 71275; 82565; 84520; 93880; Q9967

== ENCOUNTER → 2022-05-23 15:28 | Outpatient (CLI) | payer MEDICARE, BC, SELFPAY ==
--- NOTE | 2022-05-23 15:37 | XR_ITS ---
FINAL REPORT TECHNIQUE: Chest PA & Lateral CLINICAL HISTORY: LFT RIB PAIN fell 1 month ago COMPARISON: December 2021 FINDINGS: 2 views of the chest were performed. The heart size is normal. The mediastinum is within normal limits. There is no acute cardiopulmonary process. There are no pleural effusions. There is no pneumothorax. The bony thorax appears intact. IMPRESSION: No acute cardiopulmonary process. Reviewed, Interpreted and Dictated by Paul Plascencia MD Transcribed by Brian Lord Authenticated and [facility]
== END ==
PROVIDERS: PCP Internal Medicine Adolescent Medicine; Visit Provider Nurse Practitioner Family
DX: R07.81 Pleurodynia (principal)
CPT/HCPCS: 71046

== ENCOUNTER → 2022-07-04 12:53 | Outpatient (POV) | payer MEDICARE, BC, SELFPAY | PROVIDERS: Visit Provider Dermatology | DX: Z00.00 Encounter for general adult medical examination without abnormal findings (principal) ==

== ENCOUNTER 2022-08-27 14:43 | Emergency (ER) | payer MEDICARE, BC, SELFPAY ==
[2022-08-27 14:55] VITALS: BP 162/90; PULSE 60; RESP 19; TEMP 36.7; O2SAT 96; BMI 28.0
--- NOTE | 2022-08-27 15:09 | EXP.UTC ---
Discharge Plan Disposition Patient Disposition: Home, Self-Care Condition: Good Prescriptions Prescriptions: New cephalexin 500 mg capsule 500 mg PO QID 7 Days Qty: 28 0RF mupirocin 2 % ointment 1 applic topical TID 10 Days Qty: 22 0RF Rx Instructions: apply to area as directed No Action celecoxib [Celebrex] 200 mg capsule 200 mg PO DAILY atorvastatin 80 MG tablet 80 mg PO HS levothyroxine 150 mcg Tablet 150 mcg PO DAILY folic acid 1 MG tablet 1 mg PO DAILY aspirin 81 MG tablet,delayed release (DR/EC) 81 mg PO DAILY Referrals Follow up/Referrals: Riley Jhaveri MD [Primary Care Provider] - See instructions Activity Restrictions/Add. Instructions Additional Instructions/Restrictions: *Start antibiotic(s) immediately and be sure to take as ordered for the FULL length of time although you may be feeling better or start to see improvement in the next 24-48 hours *Monitor closely. Outlined redness so that you can monitor easier. Follow up immediately for new or worsening symptoms including but not limited to redness, swelling, streaking from site fever or chills. *Warm compress 15 minutes 3-4 times day *Never squeeze or pop these on your own. Seek immediate medical attention next time this occurs *Monitor Temp. Tylenol every 4 hours as needed and ibuprofen every 6 hours as needed (as long as your primary care doctor has told you that it is ok to take both. For fever, aches, pain. ER if no less that 101 despite Tylenol and ibuprofen ?Follow up with your family doctor/primary care physician in the next 48-72 hours if no improvement Clinical Impressions Clinical Impression: Cellulitis Qualifiers: Site of cellulitis: extremity Site of cellulitis of extremity: lower extremity Laterality: right Qualified Code(s): L03.115 - Cellulitis of right lower limb Instructions Patient Instructions: Cellulitis, Cephalexin, Mupirocin Discharge ED Provider: Dee Acosta [facility] General Stated complaint: possibe spider bite right leg Mode of Arrival: Ambulatory Source of Information: Patient and Spouse Limitations: No Limitations Time Seen by Provider: 08/27/22 15:09 Description of Symptoms (Recalled from Triage Doc. by RN): PATIENT C/O BUG BITE NEAR RIGHT GROIN AREA X 2 DAYS THAT IS RED AND SWOLLEN HEENT Symptoms (Recalled from RN notes): No Resp Symptoms (Recalled from RN notes): No Skin Symptoms (Recalled from RN notes): Yes MS Symptoms (Recalled from RN notes): No Functional Status (Recalled from RN notes): WNL History of Present Illness Provider Complaint: Patient states that he noticed a place on his right upper thigh that is red, warm and swollen States that his put a bandaid on the area and it caused some bruising and blistering of his skin States that he is not sure what caused it thinks he may have been bitten by a spider or something Related Data Home Medications Medication Instructions Recorded Confirmed celecoxib 200 mg capsule (Celebrex) 200 mg PO DAILY Arthritis 08/03/17 04/17/22 atorvastatin 80 mg tablet 80 mg PO HS Cholesterol 04/15/18 04/17/22 folic acid 1 mg tablet 1 mg PO DAILY Supplement 09/20/19 04/17/22 aspirin 81 mg tablet,delayed 81 mg PO DAILY CIRCULATION 09/21/19 04/17/22 release levothyroxine 150 mcg tablet 150 mcg PO DAILY THYROID 12/17/21 04/17/22 Previous Rx's Medication Instructions Recorded cephalexin 500 mg capsule 500 mg PO QID 7 days #28 caps 08/27/22 mupirocin 2 % topical ointment 1 applic topical TID 10 days #22 08/27/22 grams Allergies Allergy/AdvReac Type Severity Reaction Status Date / Time No Known Allergies Allergy Verified 04/17/22 10:12 Worker's Comp Is this a Worker's Comp case?: No [facility] Disclaimer: The information contained in this section may have been updated after the patient was seen, as this information can be updated by other users. Medical History (Updated 08/27/22 @ 15:22 by Dee Tabares
[2022-08-27 15:23] VITALS: BP 162/90; PULSE 60; RESP 19; TEMP 36.7; O2SAT 96
== END 2022-08-27 15:24 | disposition home or self-care (01) ==
PROVIDERS: Emergency Provider Nurse Practitioner; PCP Internal Medicine Adolescent Medicine
DX: L03.115 Cellulitis of right lower limb (principal); I48.91 Unspecified atrial fibrillation; I65.29 Occlusion and stenosis of unspecified carotid artery; E78.5 Hyperlipidemia, unspecified
CPT/HCPCS: 87070; 87077; 87186; 87205; 99212; 99214; G0463

== ENCOUNTER → 2022-08-29 14:16 | Outpatient (CLI) | payer MEDICARE, BC, SELFPAY ==
[2022-08-29 12:25] LABS: Basophils % 0.5 % (0.1-2.0); Eosinophils # 0.3 K/mm3 (0.0-0.4); Eosinophils % 3.6 % (0.1-12.0); Hematocrit 41.3 % (42.0-52.0); Hemoglobin 13.2 g/dL (14.1-18.0); Lymphocytes % 23.3 % (10-50); Mean Corpuscular Hemoglobin 31.4 pg (27.0-31.2); Mean Corpuscular Volume 98.1 fl (80-94); Mean Platelet Volume 9.9 fl (7.4-10.4); Monocytes # 0.4 K/mm3 (0.1-1.0); Monocytes % 4.9 % (1.7-9.3); Neutrophils # 5.7 K/mm3 (1.8-7.8); Neutrophils % 67.8 % (37.0-80.0); Platelet Count 171 K/mm3 (142-424); Red Blood Count 4.21 M/mm3 (4.60-6.20); Red Cell Distribution Width 13.2 % (11.5-17.5); White Blood Count 8.4 K/mm3 (4.8-10.8)
[2022-08-29 12:42] LABS: Alanine Aminotransferase 21 U/L (12-78); Albumin Level 3.9 g/dl (3.5-5.0); Albumin/Globulin Ratio 1.6 (1.1-1.8); Alkaline Phosphatase 94 U/L (38-126); Aspartate Amino Transferase 30 U/L (17-59); Bilirubin,Total 0.8 mg/dl (0.2-1.3); Blood Urea Nitrogen 20 mg/dl (9-20); Calcium 8.6 mg/dl (8.4-10.2); Carbon Dioxide 23 mmol/L (22.0-30.0); Chloride 107 mmol/L (98-107); Chol/HDL Ratio 2.4 (1-3.5); Cholesterol 99 mg/dl (140-200); Estimated Glomerular Filt Rate 81 ml/min (>60); GFR (African American) 98 ML/MIN (>60); Globulin 2.5 g/dL (1.3-3.2); Glucose 129 mg/dl (74-100); HDL Cholesterol 41 mg/dl (40-60); Sodium 142 mmol/L (136-145); Total Protein,Serum 6.4 g/dl (6.3-8.2); Triglycerides 48 mg/dl (30-150); VLDL Cholesterol 10 mg/dL (0-40)
[2022-08-29 12:55] LABS: Direct LDL Cholesterol 49.95 mg/dL (100-129)
[2022-08-29 12:57] LABS: T4 (Thyroxine) 11.4 ug/dl (5.53-11.0)
[2022-08-29 13:11] LABS: Prostate Specific Ag Screen 2.4 ng/ml (0.0-4.0); Thyroid Stimulating Hormone 0.85 uIU/mL (0.465-4.68)
== END ==
PROVIDERS: PCP Emergency Medicine; Visit Provider Emergency Medicine
DX: J10.1 Influenza due to other identified influenza virus with other respiratory manifestations (principal); E78.5 Hyperlipidemia, unspecified; I48.0 Paroxysmal atrial fibrillation; K85.90 Acute pancreatitis without necrosis or infection, unspecified; Z12.5 Encounter for screening for malignant neoplasm of prostate
CPT/HCPCS: 80053; 80061; 84436; 84443; 85025; G0103

== ENCOUNTER → 2022-09-25 09:59 | Outpatient (CLI) | payer MEDICARE, BC, SELFPAY | PROVIDERS: PCP Internal Medicine Adolescent Medicine; Visit Provider Physician Assistant | DX: R00.2 Palpitations (principal) | CPT/HCPCS: 93225 ==

== ENCOUNTER → 2022-09-28 11:42 | Outpatient (CLI) | payer MEDICARE, BC, SELFPAY ==
--- NOTE | 2022-09-28 11:42 | NM_ITS ---
APPROVED REPORT Exam: Nuclear Stress Test Indication: a-fib Patient Location: Outpatient Stress Tech: Minal Myers NC Tech:Shayla James CORYMaria Isabel RT(R)(N) Ht: 5 ft 9 in Wt: 195 lbs HR: 43 bpm BP: 152/68 mmHg BSA: 2.04 m2 TID: 1.08 BMI: 28.7 History: a-fib Procedure: Patient received 0.4 mg of intravenous Lexiscan, resting heart rate 43 bpm, resting blood pressure 152/68 mmHg, with Lexiscan maximum heart rate achieved was 63 bpm which is 85 % of the maximum predicted heart rate and blood pressure was 169/76 mmHg. With Lexiscan, patient denied any complaint of chest pain. the patient was unable to lay on his abdomen for prone images Cardiac Stress and Resting SPECT Images: Cardiac Stress and Resting SPECT images were obtained using technetium 99m Myoview 31.1 mCi stress and 10.32 mCi at rest. The patient was unable to lie on his abdomen, therefore prone stress imaging could not be performed. This may affect the diagnostic interpretation of the study findings. Resting and stress imaging in supine position demonstrate a small-sized, moderate, fixed perfusion defect in the basal inferior LV wall, as well as a small-sized, moderate, predominantly reversible perfusion defect in the apical LV wall. Gated imaging demonstrates mild reduction in global and regional LV systolic function. LVEF is calculated at 46%. Conclusion: The patient was unable to lie on his abdomen, therefore prone stress imaging could not be performed. This may affect the diagnostic interpretation of the study findings. Small-sized, moderate, fixed perfusion defect in the basal inferior LV wall Small-sized, moderate, predominantly reversible perfusion defect in the apical LV wall. Gated imaging demonstrates mild reduction in global and regional LV systolic function. LVEF is calculated at 46%. Electronically signed by : Josee Wagner, 10/01/2022 12:52:55
--- NOTE | 2022-09-28 11:42 | CA_ITS ---
APPROVED REPORT Exam: Pharmacologic Technologist: Minal Myers, Ht: 5 ft 9 in Wt: 197 lbs BSA: 2.05 m2 HR: 40 bpm BP: 152/68 mmHg Rhythm: Sinus bradycardia, first degree AVB Medical History Medical History: Hyperlipidemia Medications: Levothyroxine,,,,, Aspirin,,,,, Atorvastatin,,,,, FOLIC ACID,,,,, BisOPROLOL Fumarate,,,,, SilDENAFIL,,,,, MuPirocin,,,,, CelecoxibIN,,,,, Allergies: No known drug allergies Cardiac Risk Factors: Hyperlipidemia Stress Test Details Test: LEXISCAN HR Resting HR: 43 bpm Max Heart Rate (APMHR): 138 bpm Max HR Achieved: 63 bpm Target HR (85% APMHR): 117 bpm % of APMHR: 46 Recovery HR: 50 bpm BP Resting BP: 152/68 mmHg Max BP: 169/76 mmHg Recovery BP: 162.0/71.0 mmHg ECG Resting ECG: Sinus bradycardia, first degree AVB Stress ECG: No change Arrhythmia: PACs, PVCs Clinical Exercise duration: 04:01 min Highest Stage Achieved: Exercise capacity: n/a METs Stress ECG Conclusion PT HAD MILD SOA NO CP RARE PAC AND PVC NO SIGNIFICANT CHANGES CONCLUSION UNREMARKABLE LEXISCAN STRESS MYOVIEW IMAGES REPORTED SEPARATELY SINUS BRADYCARDIA. PT ADVISED TO REDUCE BISOPROLOL FROM 5MG TO 2.5MG QDAY Test Summary REST 06:17 . . 43 . 152/ 68 . . Stage 1 01:00 . . 55 . . . . Stage 2 01:00 . . 61 . . . . Stage 3 01:00 . . 62 . 158/ 71 . . Stage 4 01:00 . . 56 . 169/ 76 . . Stage 4 01:01 . . 56 . 169/ 76 . Stop exercise at 04:01 RECOVERY 01:00 . . 55 . 156/ 67 . . RECOVERY 02:00 . . 51 . 156/ 67 . . RECOVERY 03:00 . . 51 . 156/ 76 . . RECOVERY 03:40 . . 48 . 162/ 71 . . Electronically signed by : Josee Wagner, 10/01/2022 12:49:08
--- NOTE | 2022-09-28 12:56 | CA_ITS ---
FINAL REPORT CLINICAL HISTORY: EDITA COMPARISON: None FINDINGS: RIGHT CAROTID: CCA PSV -122 cm/sec ICA PSV -110 cm/sec ICA/CCA PSV ratio -0.9. Comments: Moderate plaque disease is noted. LEFTCAROTID: CCA PSV -98. cm/sec ICA PSV -82. cm/sec ICA/CCA PSV ratio -1.08. Comments: Moderate plaque disease is noted. Antegrade flow is seen within the vertebral arteries. IMPRESSION: Carotid stenosis classified less than 50%. Antegrade flow bilateral vertebral arteries. Reviewed, Interpreted and Dictated by Cira Chase MD Transcribed by Mara Mac Authenticated and [facility]
== END ==
PROVIDERS: PCP Internal Medicine Adolescent Medicine; Visit Provider Physician Assistant
DX: E78.5 Hyperlipidemia, unspecified (principal); G47.33 Obstructive sleep apnea (adult) (pediatric); I11.9 Hypertensive heart disease without heart failure; I25.10 Atherosclerotic heart disease of native coronary artery without angina pectoris; I34.0 Nonrheumatic mitral (valve) insufficiency; I48.91 Unspecified atrial fibrillation; R00.2 Palpitations; Z95.5 Presence of coronary angioplasty implant and graft; I65.23 Occlusion and stenosis of bilateral carotid arteries; I71.20 Thoracic aortic aneurysm, without rupture, unspecified
CPT/HCPCS: 78452; 93017; 93880; A9502; J2785

== ENCOUNTER → 2022-10-06 12:59 | Outpatient (CLI) | payer MEDICARE, BC, SELFPAY ==
--- NOTE | 2022-10-06 13:01 | CA_ITS ---
APPROVED REPORT EXAM: Comprehensive 2D, Doppler, and color-flow Echocardiogram Hot Iron Worker: Brittney Subramanian RVT Ht: 5 ft 9 in Wt: 197lbs BSA: 2.05 BP: 146/71 mmHg Indications: SOA,A-FIB,MURMUR,SOA,PALPS,HTN,AAA,HLD,CAD 2D Dimensions LVOT 2.08 cm (M/F) 1.5-2.5 LA Volume 58.50 mL LA Volume Index 28.54 mL/m2 (M/F) 16-34 M-Mode Dimensions RVDd 3.82 cm (0.9-2.6) LA Diam 3.96 cm (1.9-4.0) LVDd 5.14 cm (3.5-5.7) Ao Diam 3.68 cm (2.0-3.7) LVDs 3.61 cm (3.5-5.7) IVSd 1.74 cm (0.6-1.1) PWd 0.55 cm (0.6-1.1) EF (Teich) 56.50% FS 29.80% EDV (Teich) 126.10 mL TAPSE 2.39 (<1.7) ESV (Teich) 54.80 mL LV Diastology E Decel Time 267.00 (160-240 msec) E/A Ratio 1.2 MED E' 4.40 (< 7 cm/sec) E'/MED E' Ratio 16.48 (>14) LAT E' 8.40 (<10 cm/sec) E/LAT E' Ratio 8.63 (>14) Aortic Valve LVOT Max 73.00 (70-110 cm/s) LVOT VTI 18.55 cm AoV Peak Jared. 146.00 (50-130 cm/s) AO Peak GR. 8.60 mmHg AO Mean GR. 4.60 (<5 mmHg) AO VTI 32.90 (18-25 cm) EMILY (VTI) 1.92 (2.5-4.5 cm2) Mitral Valve MV E Max Jared. 73.00 (40-130 cm/s) MV A Velocity 60.00 (40-130 cm/s) E/A Ratio 1.22 MV Decel. Time 267.00 (160-240 ms) MV PHT 78.00 ms Pulmonary Valve PV Peak Velocity 113.00 (50-150 cm/s) Tricuspid Valve TR P. Velocity 263.00 cm/s RAP Estimate 3.00 mmHg RVSP 30.00 mmHg Left Ventricle The left ventricle is normal size. The left ventricular systolic function is normal. The left ventricular ejection fraction is within the normal range. There is increased LV wall thicknes There is normal LV segmental wall motion. Diastolic function is normal. LVEF is 55%. Right Ventricle Right ventricle is moderately dilated. The right ventricular systolic function is normal. Atria The left atrium size is normal. The right atrium size is normal. There is no Doppler evidence of interatrial shunt. Aortic Valve The aortic valve is mildly thickened. There is no aortic valvular stenosis. Trace aortic regurgitation. Mitral Valve The mitral valve leaflets are mildly thickened. No evidence of mitral valve stenosis. Mild mitral regurgitation. Tricuspid Valve The tricuspid valve leaflets are thin and pliable. Mild tricuspid regurgitation. RVSP=25-30 mmHg. Pulmonic Valve The pulmonary valve is normal in structure. Trace pulmonic regurgitation. Great Vessels The aortic root is normal in size. The proximal ascending aorta is normal in size. IVC is normal in size and collapses >50% with inspiration. Pericardium There is no pericardial effusion. Other Information Study Quality: Fair Conclusion Normal biventricular systolic function. Increased LV wall thickness (IVSd = 1.4 cm) No significant valvular disease. Electronically signed by : Josee Wagner, 10/08/2022 14:27:22
== END ==
PROVIDERS: PCP Internal Medicine Adolescent Medicine; Visit Provider Physician Assistant
DX: E78.5 Hyperlipidemia, unspecified (principal); G47.33 Obstructive sleep apnea (adult) (pediatric); I11.9 Hypertensive heart disease without heart failure; I25.10 Atherosclerotic heart disease of native coronary artery without angina pectoris; I48.0 Paroxysmal atrial fibrillation; R00.2 Palpitations; R06.02 Shortness of breath; Z95.5 Presence of coronary angioplasty implant and graft; I71.20 Thoracic aortic aneurysm, without rupture, unspecified
CPT/HCPCS: 93306

== ENCOUNTER → 2022-10-09 11:09 | Outpatient (CLI) | payer MEDICARE, BC, SELFPAY ==
[2022-10-14 20:11] LABS: Testosterone, Total, LC/MS 378 ng/dL (.)
[2022-10-15 09:15] LABS: Testosterone,Free 1.7 pg/mL (6.6-18.1)
== END ==
PROVIDERS: PCP Internal Medicine Adolescent Medicine; Visit Provider Internal Medicine
DX: I11.9 Hypertensive heart disease without heart failure; I25.10 Atherosclerotic heart disease of native coronary artery without angina pectoris; I48.91 Unspecified atrial fibrillation; R00.2 Palpitations; R06.02 Shortness of breath; R53.83 Other fatigue; R94.39 Abnormal result of other cardiovascular function study; Z95.5 Presence of coronary angioplasty implant and graft; E29.1 Testicular hypofunction
CPT/HCPCS: 36415; 84402; 84403

== ENCOUNTER 2022-10-19 08:42 | Day surgery (SDC) | payer MEDICARE, BC, SELFPAY ==
[2022-10-19] VITALS (11 sets, daily range): BP systolic 116–168; BP diastolic 57–83; PULSE 48–65; RESP 16–18; TEMP 36.7; O2SAT 92–97; BMI 29.0
--- NOTE | 2022-10-19 07:09 | IR_ITS ---
APPROVED REPORT Patient Location: Outpatient PROCEDURES Left heart catheterization Left ventriculogram Selective coronary angiogram Drug-eluting stent deployment to the ostial proximal mid distal left main artery extending into the proximal LAD INDICATION Coronary artery disease, Accelerated angina pectoris, Patient on the surgical candidate Informed consent was obtained prior to the procedure. COMPLICATIONS NONE Estimated Blood Loss: LESS THAN 10 ML TECHNIQUE One percent lidocaine used to anesthetize the right anterior aspect of the wrist. The right radial artery was accessed via the Seldinger technique. A 6 Estonian sheath was placed in the right radial artery. 2.5 mg of Verapamil, 800 mcg of nitroglycerin, 1mg Lidocaine and 5000 U Heparin were given through the arterial sheath. The papa catheter and 6 Estonian JL 3 catheter were used to perform left heart catheterization, left ventriculogram and selective coronary angiogram. At the end the diagnostic angiogram therapeutic heparin was administered giving a therapeutic ACT and the 6 Estonian JL 3 guide catheter was placed in the left main artery. A Choice PT extra-support wire was placed into the LAD and a 4 mm x 22 mm Donaldson frontier stent was deployed at 20 jeffrey reducing the stenosis to 0%. An ostial stenosis remained therefore a 4 mm x 8 mm Donaldson frontier stent was placed in the ostial segment and deployed at 24 jeffrey reducing the stenosis to 0%. Excellent angiographic results were obtained. BERONICA-3 flow present before and after procedure therefore the apparatus was removed the sheath was removed and hemostasis was achieved and TR banding patient was transferred the postop putting in stable condition ANGIOGRAPHIC RESULTS The left main artery Has an ostial 50% stenosis with a long calcified stenosis ending with an 80% stenosis just proximal to the LAD The left anterior descending artery Has a proximal 30% calcified stenosis with mid vessel 30 to 40% calcified stenoses The circumflex artery Is nondominant yet still large and has a 30% stenosis in the first obtuse marginal artery 30% stenosis distal to the first obtuse marginal artery in the mid circumflex artery The right coronary artery Dominant ostially occluded The DAVIDSON ventriculogram reveals Preserved at 60% The left ventricular end-diastolic pressure 10 mmHg IMPRESSION Coronary disease as described above Successful stenting of the ostial proximal mid distal left main artery extending to the proximal ID severe disease reduced to less than 10% with 2 drug-eluting stents as described above Chronically occluded right coronary artery Preserved ejection fraction Normal left ventricular end-diastolic pressure PLAN 1. Plavix 75 mg daily plus aspirin 81 mg daily 2. LDL less than 55 to be achieved with high intensity statin 3. Continue medical management 4. Aggressive risk factor modification 5. Cardiac rehabilitation Electronically signed by : Michi Rodriguez MD 10/19/2022 13:16:15
[2022-10-19 09:10] LABS: Basophils # 0.1 K/mm3 (0-0.2); Basophils % 0.5 % (0.1-2.0); Eosinophils # 0.3 K/mm3 (0.0-0.4); Eosinophils % 3.1 % (0.1-12.0); Hematocrit 43.3 % (42.0-52.0); Hemoglobin 14.4 g/dL (14.1-18.0); Lymphocytes # 2.2 K/mm3 (0.7-4.5); Lymphocytes % 21.1 % (10-50); Mean Corpuscular HGB Conc 33.4 g/dL (31.8-35.4); Mean Corpuscular Hemoglobin 32.1 pg (27.0-31.2); Mean Corpuscular Volume 96.2 fl (80-94); Mean Platelet Volume 9.6 fl (7.4-10.4); Monocytes # 0.6 K/mm3 (0.1-1.0); Monocytes % 5.7 % (1.7-9.3); Neutrophils # 7.3 K/mm3 (1.8-7.8); Neutrophils % 69.8 % (37.0-80.0); Platelet Count 177 K/mm3 (142-424); Red Cell Distribution Width 12.9 % (11.5-17.5); White Blood Count 10.4 K/mm3 (4.8-10.8)
[2022-10-19 09:19] LABS: Anion Gap 10.3 mEq/L (5-15); Blood Urea Nitrogen 15 mg/dl (9-20); Calcium 9.3 mg/dl (8.4-10.2); Carbon Dioxide 28 mmol/L (22.0-30.0); Chloride 107 mmol/L (98-107); Creatinine Clearance Estimated 72 mL/min (50-200); Estimated Glomerular Filt Rate 72 ml/min (>60); GFR (African American) 87 ML/MIN (>60); Glucose 118 mg/dl (74-100); Potassium 4.3 mmoL/L (3.5-5.1); Sodium 141 mmol/L (136-145)
[2022-10-19 11:31] LABS: CATHL Activated Clotting Time 323 SEC (74-125)
--- NOTE | 2022-10-19 14:41 | HMH.PHACL ---
PHA Soda Tester Discharge Med Bottom Steep Tender: Aamir Adam has received discharge medication counseling on the following medications: PLAVIX 75 MG DAILY ASPIRIN 81 MG DAILY ATORVASTATIN 80 MG HS BISOPROLOL 5 MG DAILY NO BEAU/ARB PER MD.
== END 2022-10-19 14:41 | disposition home or self-care (01) ==
PROVIDERS: PCP Internal Medicine Adolescent Medicine; Visit Provider Internal Medicine
DX: E78.5 Hyperlipidemia, unspecified (principal); G47.33 Obstructive sleep apnea (adult) (pediatric); I11.9 Hypertensive heart disease without heart failure; I25.118 Atherosclerotic heart disease of native coronary artery with other forms of angina pectoris; I34.0 Nonrheumatic mitral (valve) insufficiency; I48.91 Unspecified atrial fibrillation; I65.29 Occlusion and stenosis of unspecified carotid artery; I71.2 Thoracic aortic aneurysm, without rupture; R00.2 Palpitations; R06.02 Shortness of breath; R53.83 Other fatigue; R94.39 Abnormal result of other cardiovascular function study; Z95.5 Presence of coronary angioplasty implant and graft
CPT/HCPCS: 80048; 85025; 85347; 99152; 99153; C1725; C1769; C1876; J1644; Q9967

== ENCOUNTER 2022-10-19 17:16 | Observation (INO) | payer MEDICARE, BC, SELFPAY ==
[2022-10-19] VITALS (9 sets, daily range): BP systolic 115–147; BP diastolic 61–80; PULSE 58–69; RESP 15–18; TEMP 36.4–36.9; O2SAT 95–99; BMI 28.0; BMI 29.0
--- NOTE | 2022-10-19 17:21 | ECG_ITS ---
APPROVED REPORT Exam: Resting ECG HR:56 bpm ECG Measurements Heart Rate 56 AXES HI 198 P -13 QRSd 90 QRS -32 QT 409 T 19 QTc 401 Conclusion SINUS BRADYCARDIA LEFT AXIS DEVIATION [QRS AXIS < -30] ABNORMAL ECG UNCONFIRMED REPORT Electronically signed by : Riley Jhaveri MD 10/20/2022 08:39:21
--- NOTE | 2022-10-19 17:53 | HMH.EDGENADL ---
Discharge Plan Disposition Patient Disposition: Admitted as Observation Clinical Impressions Clinical Impression: Diarrhea, Vomiting Syncope Qualifiers: Syncope type: unspecified Qualified Code(s): R55 - Syncope and collapse Discharge ED Provider: Alexander Koroma General Adult HPI General Chief complaint: Nausea/Vomiting/Diarrhea Stated complaint: syncopal Time Seen by Provider: 10/19/22 17:30 Mode of Arrival: EMS Source of Information: Patient Limitations: No Limitations Description of Symptoms (Recalled from ER Triage Doc. by RN): Pt c/o nausea and feeling cold shortly after arriving home from a heart cath this morning. Pt reports an episode of emesis prior to arrival here. EMS reports in route pt's HR dropped in the 40's and pt was given 0.5 or atropine and has been Sinus in the 60's since. Pt denies SOA, chest pain, dizziness, or weakness. History of Present Illness HPI narrative: 82-year-old male history of heart catheterization with stent placement earlier today presents with syncope at home. Patient reports that he was doing well immediately after catheterization. When he got home he began to feel ill, had copious diarrhea, had multiple episodes of vomiting and felt clammy. He is unsure if he passed out. Family reports that he was unarousable for period of time. Patient was mildly bradycardic in route with rates in the 40s, was given 0.5 of atropine by EMS. On arrival to ED patient reports that he has no chest pain shortness of breath dizziness or any other significant symptoms at this time. Related Data Home Medications Medication Instructions Recorded Confirmed celecoxib 200 mg capsule (Celebrex) 200 mg PO DAILY Arthritis 08/03/17 10/19/22 atorvastatin 80 mg tablet 80 mg PO HS Cholesterol 04/15/18 10/19/22 folic acid 1 mg tablet 1 mg PO DAILY Supplement 09/20/19 10/19/22 aspirin 81 mg tablet,delayed 81 mg PO DAILY CIRCULATION 09/21/19 10/19/22 release levothyroxine 150 mcg tablet 150 mcg PO DAILY THYROID 12/17/21 10/19/22 bisoprolol fumarate 5 mg tablet 2.5 mg PO DAILY PRN htn 10/19/22 10/19/22 clopidogrel 75 mg tablet (Plavix) 75 mg PO DAILY Blood Thinner 10/19/22 10/19/22 Allergies Allergy/AdvReac Type Severity Reaction Status Date / Time No Known Allergies Allergy Verified 10/19/22 09:07 [facility] Disclaimer: The information contained in this section may have been updated after the patient was seen, as this information can be updated by other users. Medical History (Updated 10/20/22 @ 01:05 by Alexander Koroma MD) Atrial fibrillation Carotid artery stenosis Hyperlipidemia Moderate mitral regurgitation Thoracic aortic aneurysm Surgical History (Updated 10/19/22 @ 21:20 by Martine Szymanski RN) History of cholecystectomy History of cholecystectomy Hx of heart artery stent Social History (Updated 10/19/22 @ 21:21 by Martine Szymanski RN) Smoking Status: Former smoker years smoked: 5 how long ago did patient quit smokin alcohol intake: current substance use type: denies use current occupational status: retired Travel in the last 8 weeks: Inside the [place] household members: spouse housing: house current occupation: farm current occupational exposures/hazards: No caffeine: Yes ROS Obtained: Yes All systems reviewed & no additional complaints except as documented Physical Exam General General appearance: alert, in no apparent distress and obese Head Head exam: atraumatic and normocephalic Eye Eye exam: Present normal appearance, PERRL and EOMI ENT ENT exam: Present normal oropharynx and normal external ear exam Neck Neck exam: Present normal inspection and full ROM Chest Chest inspection: Present normal inspection and symmetric chest wall rise; Absent tenderness Respiratory Respiratory exam: Present normal lung sounds bilaterally; Absent respiratory distress Cardiovascular Cardiovascular exam: Present normal rhythm and bradycar
[2022-10-19 17:55] LABS: Basophils % 0.2 % (0.1-2.0); Eosinophils # 0.1 K/mm3 (0.0-0.4); Eosinophils % 0.4 % (0.1-12.0); Hematocrit 41.9 % (42.0-52.0); Hemoglobin 13.8 g/dL (14.1-18.0); Lymphocytes # 2.5 K/mm3 (0.7-4.5); Lymphocytes % 10.7 % (10-50); Mean Corpuscular HGB Conc 32.9 g/dL (31.8-35.4); Mean Corpuscular Hemoglobin 32.1 pg (27.0-31.2); Mean Corpuscular Volume 97.4 fl (80-94); Mean Platelet Volume 9.7 fl (7.4-10.4); Monocytes # 0.9 K/mm3 (0.1-1.0); Neutrophils % 84.8 % (37.0-80.0); Platelet Count 201 K/mm3 (142-424); White Blood Count 23.6 K/mm3 (4.8-10.8)
[2022-10-19 17:58] LABS: MANUAL DIFFERENTIAL MANUAL DIFFERENTIAL (MANUAL DIFF)
[2022-10-19 18:01] LABS: Alanine Aminotransferase 20 U/L (12-78); Albumin Level 3.7 g/dl (3.5-5.0); Albumin/Globulin Ratio 1.3 (1.1-1.8); Alkaline Phosphatase 78 U/L (38-126); Anion Gap 13.9 mEq/L (5-15); Aspartate Amino Transferase 26 U/L (17-59); Blood Urea Nitrogen 19 mg/dl (9-20); Calcium 8.7 mg/dl (8.4-10.2); Carbon Dioxide 23 mmol/L (22.0-30.0); Chloride 107 mmol/L (98-107); Creatinine Clearance Estimated 58 mL/min (50-200); Estimated Glomerular Filt Rate 58 ml/min (>60); GFR (African American) 70 ML/MIN (>60); Globulin 2.8 g/dL (1.3-3.2); Glucose 144 mg/dl (74-100); Lipase 132 U/L (23-300); Magnesium 1.9 mg/dl (1.6-2.3); Potassium 3.9 mmoL/L (3.5-5.1); Sodium 140 mmol/L (136-145); Total Protein,Serum 6.5 g/dl (6.3-8.2)
[2022-10-19 18:13] LABS: Troponin I < 0.01 ng/ml (0.00-0.034)
[2022-10-19 18:27] LABS: Lymphocytes % 13 % (10-50); Monocytes % 2 % (2-9); Neutrophils % 85 % (42-76); Platelet Estimate Normal; RBC Morphology Normal; Total Cells Counted 100
--- NOTE | 2022-10-19 18:29 | PC.NURSE ---
rounded on pt at this time, family at BS, pt states no needs at this time, call button in reach
--- NOTE | 2022-10-19 19:10 | PC.NURSE ---
ER MD Koroma speaking with Dr. Rodriguez.
--- NOTE | 2022-10-19 19:30 | PC.NURSE ---
OBSERVATION ADMISSION 208 WITH DX OF SYNCOPE AND CHEST PAIN TO SERVICE OF THE HOSPITALIST.
--- NOTE | 2022-10-19 20:14 | PC.NURSE ---
Hospitalist at bedside @ 1999
--- NOTE | 2022-10-19 20:26 | EXP.HP ---
History of Present Illness *Admission Date: 10/19/22 *Reason for visit:: syncope *History of present illness: This is an 82-year-old male, with past medical history of hypertension, hyperlipidemia , A-fib, CAD, TIA, diastolic dysfunction, aortic aneurysm, mitral regurgitation, who was here this morning for heart Catheterization with stent of the coronary artery after 80% occlusion, patient was then discharged home and came back later pt c/o nausea and feeling cold . Symptoms started shortly after arriving home this morning. Pt reports an episode of emesis prior to arrival here. at the bedside reports patient syncope episode, passing out.patient did not fall, no visible trauma. Patient does not recall the episode. EMS reports in route pt's HR dropped in the 40's and pt was given 0.5 or atropine and has been Sinus in the 60's since. Pt denies SOA, chest pain, dizziness, or weakness. Admitted for further work-up and management with observation rather. [facility] Disclaimer: The information contained in this section may have been updated after the patient was seen, as this information can be updated by other users. Medical History (Updated 10/20/22 @ 11:56 by Cyndie Leiva APRN) Acute pancreatitis Atrial fibrillation Atrial fibrillation CAD (coronary artery disease) Carotid artery stenosis Diastolic dysfunction Hyperlipidemia Mitral regurgitation Moderate mitral regurgitation Nausea ARNALDO (obstructive sleep apnea) Shingles Thoracic aortic aneurysm Thoracic aortic aneurysm TIA (transient ischemic attack) Surgical History (Updated 10/19/22 @ 21:20 by Martine Szymanski RN) History of cholecystectomy History of cholecystectomy Hx of heart artery stent Social History (Updated 10/19/22 @ 21:21 by Martine Szymanski RN) Smoking Status: Former smoker years smoked: 5 how long ago did patient quit smokin alcohol intake: current substance use type: denies use current occupational status: retired Travel in the last 8 weeks: Inside the [place] household members: spouse housing: house current occupation: farm current occupational exposures/hazards: No caffeine: Yes Review of Systems Review of Systems Review of systems:: pertinent systems reviewed and negative unless documented below Meds Home Medications and Allergies Home Medications Medication Instructions Recorded Confirmed Type celecoxib 200 mg capsule (Celebrex) 200 mg PO DAILY Arthritis 08/03/17 10/19/22 History atorvastatin 80 mg tablet 80 mg PO HS Cholesterol 04/15/18 10/19/22 History folic acid 1 mg tablet 1 mg PO DAILY Supplement 09/20/19 10/19/22 History aspirin 81 mg tablet,delayed 81 mg PO DAILY Heart Health 09/21/19 10/19/22 History release levothyroxine 150 mcg tablet 150 mcg PO DAILY Thyroid 12/17/21 10/19/22 History bisoprolol fumarate 5 mg tablet 5 mg PO DAILY High Blood Pressure 10/19/22 10/20/22 History clopidogrel 75 mg tablet (Plavix) 75 mg PO DAILY Platelet Inhibitor 10/19/22 10/19/22 History New Prescriptions to Start Prescriptions: Allergies Allergy/AdvReac Type Severity Reaction Status Date / Time No Known Allergies Allergy Verified 10/19/22 09:07 Exam Data for Last 24 hours Vital signs and Labs for Last 24 Hours: Temp Pulse Resp BP Pulse Ox O2 Del Method 97.6 F 69 16 138/78 97 Room Air 10/19/22 17:17 10/19/22 20:00 10/19/22 20:00 10/19/22 20:00 10/19/22 20:00 10/19/22 17:17 Laboratory Results - last 24 hr 10/19/22 17:15: WBC 23.6 H* D, RBC 4.30 L, Hgb 13.8 L, Hct 41.9 L, MCV 97.4 H, MCH 32.1 H, MCHC 32.9, RDW 13.0, Plt Count 201, MPV 9.7, Neut % (Auto) 84.8 H, Lymph % (Auto) 10.7, [place] % (Auto) 4.0, Eos % (Auto) 0.4, Baso % (Auto) 0.2, Neut # (Auto) 20.0 H, Lymph # (Auto) 2.5, [place] # (Auto) 0.9, Eos # (Auto) 0.1, Baso # (Auto) 0.0, Total Counted 100, Neutrophils % (Manual) 85 H, Lymphocytes % (Manual) 13, Monocytes % (Manual) 2, Platelet Estimate Normal, RBC Mo
--- NOTE | 2022-10-19 20:46 | PC.NURSE ---
pt to floor via stretcher at this time.
[2022-10-19 21:11] LABS: Troponin I 0.02 ng/ml (0.00-0.034)
--- NOTE | 2022-10-19 22:50 | CT_ITS ---
PROCEDURE INFORMATION: Exam: CT Head Without Contrast Exam date and time: 10/19/2022 11:13 PM Age: 82 years old Clinical indication: Syncope and collapse; Patient HX: Heart cath/stent placement 8 am TECHNIQUE: Imaging protocol: Computed tomography of the head without contrast. Radiation optimization: All CT scans at this facility use at least one of these dose optimization techniques: automated exposure control; mA and/or kV adjustment per patient size (includes targeted exams where dose is matched to clinical indication); or iterative reconstruction. REPORTING DATA: Count of CT and Cardiac NM exams in prior 12 months: This patient has received [address] and 0 known cardiac nuclear medicine studies in the 12 months prior to the current study. COMPARISON: CT HEAD/BRAIN WO CON 04/27/2020 11:35 PM FINDINGS: Brain: There are scattered white matter changes with areas of hypodensity which are nonspecific but most likely reflect chronic microvascular disease. No evidence for acute intracranial hemorrhage, midline shift, or mass effect. No compelling evidence for acute transcortical infarct. Cerebral ventricles: There is enlargement of the ventricles and sulci compatible with age-related atrophy. Stable extensive choroid plexus, pineal, and vascular calcificationThere are scattered areas of sinus mucosal thickening. Paranasal sinuses: There is complete opacification of the left frontal sinus. Mastoid air cells: Visualized mastoid air cells are well aerated. Bones/joints: Unremarkable. No acute fracture. Soft tissues: Unremarkable. IMPRESSION: Age-related changes without acute abnormality detected.
[2022-10-20] VITALS (7 sets, daily range): BP systolic 114–149; BP diastolic 56–71; PULSE 49–70; RESP 14–20; TEMP 36.6–37.1; O2SAT 92–96; BMI 29.0
--- NOTE | 2022-10-20 05:01 | PC.NURSE ---
Patient new admit this shift. Since admission no compliants of nausea, SOA, or chest pain. Patient sinus george on tele. Up with stand by assist to restroom. Dressing in place to right radial sight from previous heart cath. No issues noted. Vitals WNL. Call lovelace and personal items in reach, POC ongoing.
--- NOTE | 2022-10-20 07:46 | XR_ITS ---
FINAL REPORT CLINICAL HISTORY: leukocytosis, syncope COMPARISON: None FINDINGS: A single portable view of the chest was obtained. The heart size and pulmonary vascularity are within normal limits. The mediastinum is within normal limits. No acute pulmonary abnormality is identified. The bony thorax is intact. IMPRESSION: No active cardiopulmonary disease. Reviewed, Interpreted and Dictated by Norman Hearn III, MD Transcribed by Sheba Og Authenticated and [facility]
--- NOTE | 2022-10-20 07:48 | EXP.PN ---
Subjective *Date: 10/20/22 *Time: 10:00 Interval history: No acute events overnight No dyspnea No chest pain Exam Data for Last 24 hours Vital signs and Labs for Last 24 Hours: Temp Pulse Resp BP Pulse Ox O2 Del Method 97.9 F 52 L 18 131/62 95 Room Air 10/20/22 00:00 10/20/22 05:33 10/20/22 00:00 10/20/22 05:33 10/20/22 00:00 10/20/22 06:43 Laboratory Results - last 24 hr 10/19/22 17:15: WBC 23.6 H* D, RBC 4.30 L, Hgb 13.8 L, Hct 41.9 L, MCV 97.4 H, MCH 32.1 H, MCHC 32.9, RDW 13.0, Plt Count 201, MPV 9.7, Neut % (Auto) 84.8 H, Lymph % (Auto) 10.7, [place] % (Auto) 4.0, Eos % (Auto) 0.4, Baso % (Auto) 0.2, Neut # (Auto) 20.0 H, Lymph # (Auto) 2.5, [place] # (Auto) 0.9, Eos # (Auto) 0.1, Baso # (Auto) 0.0, Total Counted 100, Neutrophils % (Manual) 85 H, Lymphocytes % (Manual) 13, Monocytes % (Manual) 2, Platelet Estimate Normal, RBC Morphology Normal, Sodium 140, Potassium 3.9, Chloride 107, Carbon Dioxide 23, Anion Gap 13.9, BUN 19 D, Creatinine 1.20, Estimated Creat Clear 58, Estimated GFR 58 L, Est GFR ( Amer) 70, Glucose 144 H D, Calcium 8.7, Magnesium 1.9, Total Bilirubin 1.0, AST 26, ALT 20, Alkaline Phosphatase 78, Troponin I < 0.01, Total Protein 6.5, Albumin 3.7, Globulin 2.8, Albumin/Globulin Ratio 1.3, Lipase 132 10/19/22 20:43: Troponin I 0.02 I & O for Last 24 hours: Intake & Output 10/17/22 10/18/22 10/19/22 10/20/22 23:59 23:59 23:59 23:59 Output Total 200 / 200 150 / 150 Balance -200 / -200 -150 / -150 Weight 89.018 kg Constitutional Constitutional: no acute distress *Routine HEENT Exam Head: Present normocephalic Eye: Present EOMI and PERRL ENT: Present mucous membranes moist *Routine Neck Exam Neck: Present supple; Absent lymphadenopathy *Routine Respiratory Exam Respiratory: Present CTA bilaterally *Routine Cardiovascular Exam Cardiovascular: Present RRR *Routine Abdominal Exam Abdominal: Present soft and normoactive bowel sounds; Absent tenderness *Routine Extremities Exam Extremities: Absent cyanosis, clubbing or edema *Routine Skin Exam Skin: Present warm; Absent rash *Routine Neurological Exam Neurological: Present alert and oriented X3 Assessment and Plan *Assessment and plan (1) Syncope: Status: Acute Qualifiers: Syncope type: unspecified Qualified Code(s): R55 - Syncope and collapse Category: Medical Code(s): R55 - Syncope and collapse (2) Bradycardia: Status: Chronic Category: Medical Code(s): R00.1 - Bradycardia, unspecified (3) Leukocytosis: Status: Acute Qualifiers: Leukocytosis type: other Qualified Code(s): D72.828 - Other elevated white blood cell count Category: Medical Code(s): D72.829 - Elevated white blood cell count, unspecified (4) CAD (coronary artery disease): Status: Chronic Qualifiers: Coronary Disease-Associated Artery/Lesion type: [place] artery [facility] vs. transplanted heart: [place] heart Associated angina: without angina Qualified Code(s): I25.10 - Atherosclerotic heart disease of [place] coronary artery without angina pectoris Category: Medical Code(s): I25.10 - Atherosclerotic heart disease of [place] coronary artery without angina pectoris (5) Stented coronary artery: Status: Chronic Category: Surgical Code(s): Z95.5 - Presence of coronary angioplasty implant and graft (6) Hyperlipidemia: Status: Chronic Qualifiers: Hyperlipidemia type: mixed hyperlipidemia Qualified Code(s): E78.2 - Mixed hyperlipidemia Category: Medical Code(s): E78.5 - Hyperlipidemia, unspecified (7) TIA (transient ischemic attack): Status: Acute Category: Medical Code(s): G45.9 - Transient cerebral ischemic attack, unspecified (8) Hypothyroid: Status: Acute Qualifiers: Hypothyroidism type: unspecified Qualified Code(s): E03.9 - Hypothyroidism,
--- NOTE | 2022-10-20 09:16 | HMH.PHAINT1 ---
Pharmacy Intervention Comments: MEDICATION RECONCILIATION COMPLETED ON PATIENT USING LIST FROM CARDIOLOGY OFFICE. -WILTON TREVINO, KIRSTIED
--- NOTE | 2022-10-20 09:39 | CA_ITS ---
APPROVED REPORT EXAM: Comprehensive 2D, Doppler, and color-flow Echocardiogram Paper Latcher: EDWARD Abdullahi, RVS Ht: 5 ft 8 in Wt: 196lbs BSA: 2.03 BP: 131/62 mmHg Rhythm: Bradycardia Indications: syncope, diaphoresis, s/p cath 10days with stent, cad, afib, cinthya 2D Dimensions Aortic Root 3.49 cm M: 3.1 - 3.7 LA Volume 55.60 mL Left Atrium 4.35 cm M: 3.0 - 4.0 LA Volume Index 27.39 mL/m2 (M/F) 16-34 LVOT 2.19 cm (M/F) 1.5-2.5 M-Mode Dimensions RVDd 4.31 cm (0.9-2.6) LA Diam 4.09 cm (1.9-4.0) LVDd 5.79 cm (3.5-5.7) Ao Diam 3.92 cm (2.0-3.7) LVDs 3.55 cm (3.5-5.7) IVSd 1.44 cm (0.6-1.1) PWd 1.31 cm (0.6-1.1) EF (Teich) 68.30% EPSs 0.81 cm FS 38.70% EDV (Teich) 165.90 mL TAPSE 2.14 (<1.7) ESV (Teich) 52.60 mL LV Diastology E Decel Time 350.00 (160-240 msec) E/A Ratio 1.13 MED E' 5.00 (< 7 cm/sec) MED A' 8.50 cm/s E'/MED E' Ratio 14.66 (>14) LAT E' 9.00 (<10 cm/sec) LAT A' 8.20 cm/s E/LAT E' Ratio 8.14 (>14) Aortic Valve LVOT Max 92.00 (70-110 cm/s) LVOT VTI 22.25 cm AoV Peak Jared. 150.00 (50-130 cm/s) AO Peak GR. 9.00 mmHg AO Mean GR. 4.40 (<5 mmHg) AO VTI 33.55 (18-25 cm) EMILY (VTI) 2.50 (2.5-4.5 cm2) Mitral Valve MV A Velocity 65.00 (40-130 cm/s) E/A Ratio 1.13 MV Decel. Time 350.00 (160-240 ms) Pulmonary Valve PV Peak Velocity 78.00 (50-150 cm/s) NJ End VMAX 275.00 cm/s Tricuspid Valve TR P. Velocity 294.00 cm/s RAP Estimate 10.00 mmHg RVSP 44.50 mmHg Left Ventricle The left ventricle is normal size. The left ventricular systolic function is normal. The left ventricular ejection fraction is within the normal range. There is increased left ventricular wall thickness. There is normal LV segmental wall motion. The diastolic function is indeterminate. LVEF is 55%. Right Ventricle Right ventricle is moderately dilated. The right ventricular systolic function is normal. Atria The left atrium size is normal. The right atrium size is normal. Aortic Valve The aortic valve is mildly thickened. There is no aortic valvular stenosis. Trace aortic regurgitation is present. Mitral Valve The mitral valve is mildly thickened. No evidence of mitral valve stenosis. Mild mitral regurgitation. Tricuspid Valve The tricuspid valve leaflets are thin and pliable. There is mild tricuspid regurgitation. RVSP is 35 mmHg + RA pressure. Pulmonic Valve The pulmonary valve is normal in structure. Mild pulmonic regurgitation. Great Vessels The aortic root is normal in size. The ascending aorta is normal in size. The IVC is not well visualized. Pericardium Trivial pericardial effusion. Other Information Study Quality: Adequate Conclusion Normal biventricular systolic function. No significant valvular disease. RVSP is elevated at 35 mmHg + RA pressure Trivial pericardial effusion. Compared to prior study from 10/06/2022, there are overall no significant changes. The trivial pericardial effusion is new. Electronically signed by : Josee Wagner, 10/20/2022 18:53:51
[2022-10-20 10:27] LABS: Alanine Aminotransferase 18 U/L (12-78); Albumin Level 3.6 g/dl (3.5-5.0); Albumin/Globulin Ratio 1.3 (1.1-1.8); Alkaline Phosphatase 74 U/L (38-126); Anion Gap 12.2 mEq/L (5-15); Aspartate Amino Transferase 26 U/L (17-59); Bilirubin,Total 1.3 mg/dl (0.2-1.3); Blood Urea Nitrogen 18 mg/dl (9-20); Calcium 8.8 mg/dl (8.4-10.2); Carbon Dioxide 23 mmol/L (22.0-30.0); Chloride 109 mmol/L (98-107); Cholesterol 93 mg/dl (140-200); Creatinine Clearance Estimated 65 mL/min (50-200); Estimated Glomerular Filt Rate 64 ml/min (>60); GFR (African American) 78 ML/MIN (>60); Globulin 2.8 g/dL (1.3-3.2); Glucose 98 mg/dl (74-100); HDL Cholesterol 31 mg/dl (40-60); Magnesium 1.9 mg/dl (1.6-2.3); Phosphorous 3.2 mg/dl (2.5-4.5); Potassium 4.2 mmoL/L (3.5-5.1); Sodium 140 mmol/L (136-145); Total Protein,Serum 6.4 g/dl (6.3-8.2); Triglycerides 43 mg/dl (30-150); VLDL Cholesterol 9 mg/dL (0-40)
[2022-10-20 10:28] LABS: INR 1.15 (0.9-1.1); Prothrombin Time 12.3 seconds (10.1-12.5)
[2022-10-20 10:30] LABS: Basophils % 0.2 % (0.1-2.0); Eosinophils # 0.2 K/mm3 (0.0-0.4); Eosinophils % 1.1 % (0.1-12.0); Hematocrit 41.5 % (42.0-52.0); Hemoglobin 13.4 g/dL (14.1-18.0); Lymphocytes # 2.4 K/mm3 (0.7-4.5); Lymphocytes % 17.8 % (10-50); Mean Corpuscular HGB Conc 32.3 g/dL (31.8-35.4); Mean Corpuscular Hemoglobin 31.8 pg (27.0-31.2); Mean Corpuscular Volume 98.4 fl (80-94); Mean Platelet Volume 9.5 fl (7.4-10.4); Monocytes # 0.7 K/mm3 (0.1-1.0); Monocytes % 5.2 % (1.7-9.3); Neutrophils # 10.4 K/mm3 (1.8-7.8); Neutrophils % 75.7 % (37.0-80.0); Platelet Count 155 K/mm3 (142-424); Red Blood Count 4.21 M/mm3 (4.60-6.20); Red Cell Distribution Width 12.9 % (11.5-17.5); White Blood Count 13.8 K/mm3 (4.8-10.8)
[2022-10-20 10:31] LABS: D-Dimer 2.28 ug/mL (0.0-0.5)
[2022-10-20 10:39] LABS: Direct LDL Cholesterol 45.29 mg/dL (100-129)
--- NOTE | 2022-10-20 11:50 | EXP.CARD.CON ---
History of Present Illness History of Present Illness Consult date: 10/20/22 Requesting physician: Davon Benítez Chief complaint: nausea, chills, bradycardia History of present illness: This is an 82-year-old white gentleman who presented to the emergency department with complaints of nausea and feeling cold. He has a known history of coronary artery disease with stenting the day of the admission, hypertension, hyperlipidemia, A-fib, 3 times daily and aortic aneurysm. The patient underwent left cardiac catheterization yesterday and had stents placed to the left main artery extending in the to the LAD and a chronically occluded right coronary artery. The patient reports that after being home about an hour and 1/2 to 2 hours he had sudden onset of nausea and a little cramping in his abdominal region. He was feeling really cold and had episodes of diarrhea. His reports that he was shaking uncontrollably because he was still cold and then he had a syncopal episode where he passed out for about 15 seconds. He did not fall and had no trauma from the syncope. His called EMS and when EMS arrived his heart rate was in the 40s. He was given 0.5 mg of atropine and his heart rate improved to 60 bpm. He has denied any recurrence of his syncope. He denies any chest pain or pressure. He denies any shortness of breath or edema. He denies any fever, chills, PND or orthopnea. On arrival the patient had a negative troponin. He does have a leukocytosis. [facility] Disclaimer: The information contained in this section may have been updated after the patient was seen, as this information can be updated by other users. Medical History (Updated 10/20/22 @ 11:56 by Cyndie Leiva APRN) Acute pancreatitis Atrial fibrillation Atrial fibrillation CAD (coronary artery disease) Carotid artery stenosis Diastolic dysfunction Hyperlipidemia Mitral regurgitation Moderate mitral regurgitation Nausea ARNALDO (obstructive sleep apnea) Shingles Thoracic aortic aneurysm Thoracic aortic aneurysm TIA (transient ischemic attack) Surgical History (Updated 10/19/22 @ 21:20 by Martine Szymanski RN) History of cholecystectomy History of cholecystectomy Hx of heart artery stent Social History (Updated 10/19/22 @ 21:21 by Martine Szymanski RN) Smoking Status: Former smoker years smoked: 5 how long ago did patient quit smokin alcohol intake: current substance use type: denies use current occupational status: retired Travel in the last 8 weeks: [place] the [place] household members: spouse housing: house current occupation: farm current occupational exposures/hazards: No caffeine: Yes Review of Systems Review of Systems Review of systems:: pertinent systems reviewed and negative unless documented below Constitutional Constitutional: Reports system reviewed and no additional complaints, except as documented, Reports chills (Feeling cold) and Reports lethargy Eyes Eyes: Reports system reviewed and no additional complaints, except as documented ENT Ears, Nose, Mouth, and Throat: Reports system reviewed and no additional complaints, except as documented *Cardiovascular Cardiovascular: Reports system reviewed and no additional complaints, except as documented *Respiratory Respiratory: Reports system reviewed and no additional complaints, except as documented *Gastrointestinal Gastrointestinal: Reports system reviewed and no additional complaints, except as documented, Reports abdominal pain, Reports loose stools and Reports nausea *Genitourinary Genitourinary: Reports system reviewed and no additional complaints, except as documented *Musculoskeletal Musculoskeletal: Reports system reviewed and no additional complaints, except as documented Integumentary/Breasts Skin/Breast: Reports system reviewed and no additional complaints, except as documented *Neurologic Neurologic: Reports system reviewed and no additional complaints, exce
[2022-10-20 14:01] LABS: Microscopic, Urine URINE MICROSCOPIC (MICROSCOPIC)
--- NOTE | 2022-10-20 14:33 | CT_ITS ---
FINAL REPORT TECHNIQUE: Then section axial CT images of the chest were obtained with contrast. Three-D reformatted images were also obtained.This study was performed with techniques to keep radiation doses as low as reasonably achievable (ALARA). Individualized dose reduction techniques using automated exposure control or adjustment of mA and/or kV according to the patient's size were employed. CLINICAL HISTORY: elevated d dimer COMPARISON: 04/27/2022 FINDINGS: There is no evidence of pulmonary embolism. The borderline in size ascending and descending thoracic aortic aneurysms are once again noted, the ascending aorta measuring 43 mm in diameter in the descending measuring 33 mm in diameter. No evidence of aortic dissection is present. Severe coronary artery calcifications are present as well as cardiomegaly. There is mild mediastinal and hilar adenopathy, stable since the prior exam. Small pleural effusions are present along with mild atelectasis. No localized inflammatory process is seen within the lungs. Limited images of the upper abdomen reveal that the patient is post cholecystectomy. IMPRESSION: No evidence of pulmonary embolism. Stable ascending and descending thoracic aortic aneurysms, borderline in size, without evidence of dissection. Small bilateral effusions, cardiomegaly, and severe coronary artery calcifications are present. Reviewed, Interpreted and Dictated by Norman Hearn III, MD Transcribed by Mara Mac Authenticated and [facility]
[2022-10-20 15:56] LABS: Appearance,Urine CLEAR (Clear); Bilirubin,Urine Negative (Negative); Blood, Urine Negative (Negative); Color,Urine YELLOW (Yellow); Glucose,Urine (UA) Negative (Negative); Ketones,Urine Negative (Negative); Leukocyte Esterase,Urine Negative (Negative); Nitrate,Urine Negative (Negative); PH,Urine 5.5 (5.0-8.5); Protein,Urine Negative (Negative); Specific Gravity, Urine 1.025 (1.005-1.030); Urobilinogen,Urine 0.2 EU/dl (0.2)
[2022-10-20 16:13] LABS: Bacteria,Urine Trace /lpf; RBC,Urine Occasional #/hpf (0-3); Squamous Epithelial Cell,Urine Occasional #/hpf (0-5)
--- NOTE | 2022-10-20 17:01 | PC.NURSE ---
A&OX4. TOLERATING RA WELL. UP INDEPENDENTLY IN ROOM. HAS HAD NO C/O DIZZINESS THUS FAR. HR IN 50-60S T/O SHIFT. VSS.
[2022-10-21] VITALS: BP 152/77; PULSE 50; PULSE 59; RESP 18; TEMP 36.7; O2SAT 96
[2022-10-21 04:00] VITALS: BP 137/72; PULSE 40; PULSE 52; RESP 18; TEMP 36.8; O2SAT 95; BMI 29.0
--- NOTE | 2022-10-21 05:02 | PC.NURSE ---
NO ACUTE CHANGES THIS SHIFT. PT HAS RESTED WELL. NO C/O CHEST PAIN OR SHORTNESS OF BREATH. NO C/O DIZZINESS. REMAINS NSR TO SINUS CHRIS ON TELE. AMBULATING INDEPENDENTLY TO THE BATHROOM. VSS.
[2022-10-21 08:00] VITALS: BP 131/63; PULSE 63; RESP 18; TEMP 36.7; O2SAT 93
[2022-10-21 08:20] LABS: Basophils % 0.3 % (0.1-2.0); Eosinophils # 0.4 K/mm3 (0.0-0.4); Eosinophils % 3.7 % (0.1-12.0); Hematocrit 39.2 % (42.0-52.0); Lymphocytes # 2.3 K/mm3 (0.7-4.5); Lymphocytes % 20.6 % (10-50); Mean Corpuscular HGB Conc 33.1 g/dL (31.8-35.4); Mean Corpuscular Hemoglobin 32.3 pg (27.0-31.2); Mean Corpuscular Volume 97.7 fl (80-94); Mean Platelet Volume 9.7 fl (7.4-10.4); Monocytes # 0.7 K/mm3 (0.1-1.0); Monocytes % 6.1 % (1.7-9.3); Neutrophils # 7.8 K/mm3 (1.8-7.8); Neutrophils % 69.3 % (37.0-80.0); Platelet Count 153 K/mm3 (142-424); Red Blood Count 4.02 M/mm3 (4.60-6.20); White Blood Count 11.3 K/mm3 (4.8-10.8)
[2022-10-21 08:24] LABS: Chloride 106 mmol/L (98-107); Potassium 4.2 mmoL/L (3.5-5.1); Sodium 137 mmol/L (136-145)
[2022-10-21 08:27] LABS: Anion Gap 11.2 mEq/L (5-15); Blood Urea Nitrogen 19 mg/dl (9-20); Carbon Dioxide 24 mmol/L (22.0-30.0); Creatinine Clearance Estimated 65 mL/min (50-200); Estimated Glomerular Filt Rate 64 ml/min (>60); GFR (African American) 78 ML/MIN (>60)
[2022-10-21 08:28] LABS: Calcium 8.8 mg/dl (8.4-10.2); Glucose 105 mg/dl (74-100)
--- NOTE | 2022-10-21 09:11 | EXP.DC.SUM ---
General Admission date:: 10/19/22 Discharge date: 10/21/22 HPI HPI HPI: This is an 82-year-old male, with past medical history of hypertension, hyperlipidemia , A-fib, CAD, TIA, diastolic dysfunction, aortic aneurysm, mitral regurgitation, who was here this morning for heart Catheterization with stent of the coronary artery after 80% occlusion, patient was then discharged home and came back later pt c/o nausea and feeling cold . Symptoms started shortly after arriving home this morning. Pt reports an episode of emesis prior to arrival here. at the bedside reports patient syncope episode, passing out.patient did not fall, no visible trauma. Patient does not recall the episode. EMS reports in route pt's HR dropped in the 40's and pt was given 0.5 or atropine and has been Sinus in the 60's since. Pt denies SOA, chest pain, dizziness, or weakness. Admitted for further work-up and management with observation rather. Hospital Course Hospital Course Hospital Course: The patient's bisoprolol and his heart rate was near 60 on the day of discharge. On the day of discharge he was asymptomatic. The patient's syncope could have been due to bradycardia but also could have been contributed by volume depletion in the setting of recent diarrhea and nausea. On day of discharge he did not have any diarrhea or nausea. He was given IV fluids while in the hospital. He had an elevated D-dimer so a cta chest was ordered which revealed no acute cardiopulmonary process. His echocardiogram revealed normal biventricular systolic function, no signficant valvular disease, elevated RVSPat 35mmHg + RA pressure, and a trivial pericardial effusion. His bisoprolol and celebrex were discontinued and he was recommended to take Tylenol for his chronic joint pain. He will need to follow up with his PCP in 1 week and with Cardiology in 2-4 weeks. Exam Data for Last 24 hours Vital signs and Labs for Last 24 Hours: Temp Pulse Resp BP Pulse Ox O2 Del Method 98.0 F 63 18 131/63 93 L Room Air 10/21/22 08:00 10/21/22 08:00 10/21/22 08:00 10/21/22 08:00 10/21/22 08:00 10/21/22 08:00 Laboratory Results - last 24 hr 10/20/22 08:18: Urine Color Yellow, Urine Appearance Clear, Urine pH 5.5, Ur Specific [place] 1.025, Urine Protein Negative, Urine Glucose (UA) Negative, Urine Ketones Negative, Urine Blood Negative, Urine Nitrate Negative, Urine Bilirubin Negative, Urine Urobilinogen 0.2, Ur Leukocyte Esterase Negative, Urine RBC Occasional, Urine WBC None, Ur Squamous Epith Cells Occasional, Urine Bacteria Trace 10/20/22 09:59: WBC 13.8 H D, RBC 4.21 L, Hgb 13.4 L, Hct 41.5 L, MCV 98.4 H, MCH 31.8 H, MCHC 32.3, RDW 12.9, Plt Count 155, MPV 9.5, Neut % (Auto) 75.7, Lymph % (Auto) 17.8, [place] % (Auto) 5.2, Eos % (Auto) 1.1, Baso % (Auto) 0.2, Neut # (Auto) 10.4 H, Lymph # (Auto) 2.4, [place] # (Auto) 0.7, Eos # (Auto) 0.2, Baso # (Auto) 0.0, PT 12.3, INR 1.15 H, D-Dimer 2.28 H, Sodium 140, Potassium 4.2, Chloride 109 H, Carbon Dioxide 23, Anion Gap 12.2, BUN 18, Creatinine 1.10, Estimated Creat Clear 65, Estimated GFR 64, Est GFR ( Amer) 78, Glucose 98 D, Calcium 8.8, Phosphorus 3.2, Magnesium 1.9, Total Bilirubin 1.3, AST 26, ALT 18, Alkaline Phosphatase 74, Total Protein 6.4, Albumin 3.6, Globulin 2.8, Albumin/Globulin Ratio 1.3, Triglycerides 43, Cholesterol 93 L, LDL Cholesterol Direct 45.29 L, VLDL Cholesterol 9, HDL Cholesterol 31 L, Cholesterol/HDL Ratio 3.0 10/21/22 07:08: WBC 11.3 H, RBC 4.02 L, Hgb 13.0 L, Hct 39.2 L, MCV 97.7 H, MCH 32.3 H, MCHC 33.1, RDW 13.0, Plt Count 153, MPV 9.7, Neut % (Auto) 69.3, Lymph % (Auto) 20.6, [place] % (Auto) 6.1, Eos % (Auto) 3.7, Baso % (Auto) 0.3, Neut # (Auto) 7.8, Lymph # (Auto) 2.3, [place] # (Auto) 0.7, Eos # (Auto) 0.4, Baso # (Auto) 0.0, Sodium 137, Potassium 4.2, Chloride 106, Carbon Dioxide 24, Anion Gap 11.2, BUN 19, Creatinine 1.10, Estimated Creat Clear 65, Estimated GFR 64, Est GFR ( Amer) 78, Glucose 105 H, Calcium 8.8
--- NOTE | 2022-10-23 15:38 | CARE MANAGER ---
Spoke with patient for post-discharge phone interview, no issues noted.
== END 2022-10-21 10:18 | disposition home or self-care (01) ==
LOC: ER 18:29 → 2ND 21:35
PROVIDERS: Nurse Practitioner Family; Admitting Provider Internal Medicine; Emergency Provider Emergency Medicine; PCP Internal Medicine Adolescent Medicine; Visit Provider Internal Medicine
DX: R07.9 Chest pain, unspecified (principal); R11.0 Nausea; R19.7 Diarrhea, unspecified; D72.828 Other elevated white blood cell count; I25.118 Atherosclerotic heart disease of native coronary artery with other forms of angina pectoris; G47.33 Obstructive sleep apnea (adult) (pediatric); I48.0 Paroxysmal atrial fibrillation; I34.0 Nonrheumatic mitral (valve) insufficiency; I10 Essential (primary) hypertension; E78.2 Mixed hyperlipidemia; Z95.5 Presence of coronary angioplasty implant and graft; R55 Syncope and collapse; R00.1 Bradycardia, unspecified; E03.9 Hypothyroidism, unspecified; Z87.891 Personal history of nicotine dependence; I25.82 Chronic total occlusion of coronary artery
CPT/HCPCS: 36415; 70450; 71045; 71275; 80048; 80053; 80061; 81001; 83690; 83735; 84100; 84484; 85007; 85025; 85347; 85378; 85610; 87040; 92928; 93005; 93306; 93458; 99152; 99153; 99285; C1725; C1769; C1876; C9600; G0378; J1644; J2405; Q9967

== ENCOUNTER 2023-04-16 14:16 | Outpatient (CLI) | payer MEDICARE, BC, SELFPAY | END 2023-04-16 23:59 | LOC: RT 14:17 | PROVIDERS: PCP Internal Medicine; Visit Provider Physician Assistant | DX: R00.2 Palpitations (principal); I48.91 Unspecified atrial fibrillation | CPT/HCPCS: 93225 ==

== ENCOUNTER 2023-09-03 07:51 | Day surgery (SDC) | payer MEDICARE, BC, SELFPAY ==
[2023-08-30 13:59] VITALS: BMI 28.0
[2023-09-03 08:03] VITALS: BP 139/74; PULSE 56; RESP 18; TEMP 36.3; O2SAT 95
--- NOTE | 2023-09-03 08:30 | EXP.ANES.CKL ---
[facility] Disclaimer: The information contained in this section may have been updated after the patient was seen, as this information can be updated by other users. Medical History Nausea Atrial fibrillation Hyperlipidemia Carotid artery stenosis Moderate mitral regurgitation TIA (transient ischemic attack) Thoracic aortic aneurysm Shingles Acute pancreatitis Thoracic aortic aneurysm Diastolic dysfunction Mitral regurgitation Atrial fibrillation ARNLADO (obstructive sleep apnea) CAD (coronary artery disease) Surgical History History of colonoscopy H/O hemorrhoidectomy Hx of heart artery stent History of cholecystectomy Family History Other No significant family history Social History Smoking Status: Former smoker tobacco type: cigarettes packs per day: 1 years smoked: 5 how long ago did patient quit smokin alcohol intake: never substance use type: denies use current occupational status: retired Travel in the last 8 weeks: None household members: spouse housing: house current occupation: farm current occupational exposures/hazards: No caffeine: Yes [facility] Anesthesia Checklist Patient Identification Patient Identification: Arm Band and Verbal (Name & ) Structural Data Admitted From: Home Planned Operative Procedure/s: EGD Consent for Planned Operative Procedure(s) Verified: Yes NPO Status Verified Time NPO: 00:00 Chart Verification Results Verified: CBC Additional verifications Anesthesia Reactions: No Hx Blood Transfusions: No Blood Transfusion Reaction: No Airway Assessment Mallampati Score:: Class II C-Spine Mobility Assessed: Yes TMJ Mobility Assessed: Yes Dentition: Good Dentition Neurological Assessment Level of Consciousness: Awake Hx Seizures: No Numbness or tingling in extremities: No Anesthesia Plan Anesthesia Risk discussed: Yes Anesthesia Plan: Verified ASA Class: III Anesthesia Type: MAC
[2023-09-03 09:02] VITALS: O2SAT 95
--- NOTE | 2023-09-03 09:16 | P.PCN_ITS ---
Procedure: Date: 09/03/23 Patient Date of :: 1940 Procedure Performed:: Esophagogastroduodenoscopy with biopsies Indications:: Patient is an 83-year-old male referred by Dr. Riley Jhaveri for upper endos copy. He is somewhat of a poor historian. He describes a several week history of upper abdominal bloating and gassiness. This usually awakens him from sleep and such does not occur postprandially. He described some symptoms of heart fluttering when he was laying on his side but then this would be relieved when he was lying supinely. He has a prior history of pancreatitis. He has undergone cholecystectomy in 2000. He has a history of thoracic aortic aneurysm, mitral regurgitation, atrial fibrillation, obstructive sleep apnea, coronary artery disease, hypertension, hyperlipidemia, carotid stenosis. Patient asks if anything can be determined from x-rays as opposed to endoscopy. He previously had a colonoscopy many years ago. . Performing Provider:: Norman Santiago MD Referring Provider:: Riley Jhaveri MD . Sedation:: MAC sedation . Procedure:: Patient history was obtained and appropriate physical examination was performed. Patient's medications and allergies were reviewed. Informed consent was obtained after explaining the benefits, alternatives, and risks of the procedure including, but not limited to, bleeding, perforation, missed lesions, and adverse reaction to anesthesia medications. Patient was transported to endoscopy procedure room. Patient was connected to monitoring devices. Throughout the procedure the patient's blood pressure, pulse, and oxygen saturations were monitored continuously. Patient identification and planned procedure were verified by the staff. Patient was positioned in lateral decubitus position. Olympus endoscope was inserted via the oropharynx. Esophagus was cannulated. There was some minor tortuosity to the esophagus consistent with mild esophageal dysmotility. Gastroesophageal junction was encountered at 40 cm. Stomach was cannulated and insufflated. There was a significant amount of bilious liquid within the stomach possibly consistent with bile reflux. Retroflexion revealed tiny hiatal hernia measuring about 1 or 2 cm. There is diffuse moderate nonerosive gastritis characterized by erythema, induration, and thickening of the stomach without erosions. Pylorus was traversed. Duodenum appeared unremarkable. Biopsies were obtained. Endoscope was withdrawn into the gastric lumen and several biopsies were obtained. Limited biopsy was obtained at the GE junction. Endoscope was withdrawn. Findings:: Findings consistent with mild esophageal dysmotility Gastroesophageal junction at 40 cm Tiny 1 or 2 cm hiatal hernia Bilious liquid within the stomach, possible bile reflux Appreciable diffuse nonerosive gastritis characterized by edema, thickening, induration, erythema Recommendations:: Management pending pathology. Patient is currently on 20 mg omeprazole daily. Complications:: None immediately apparent Estimated blood obtained (mL): 2 Colonoscopy Component Colonoscopy Component Was a colonoscopy performed during today's procedure?: No
[2023-09-03 09:19] VITALS: BP 107/66; PULSE 48; RESP 16; TEMP 36.5; O2SAT 93
[2023-09-03 09:29] VITALS: BP 113/66; PULSE 55; RESP 16; O2SAT 97
[2023-09-03 09:39] VITALS: BP 125/75; PULSE 51; RESP 16; O2SAT 96
[2023-09-03 09:49] VITALS: BP 150/72; PULSE 50; RESP 16; O2SAT 96
== END 2023-09-03 09:50 | disposition home or self-care (01) ==
PROVIDERS: PCP Internal Medicine Adolescent Medicine; Visit Provider Surgery
PROC: 0DJ08ZZ Inspection of Upper Intestinal Tract, Via Natural or Artificial Opening Endoscopic (ICD-10-PCS; CPT 43235; principal; 2023-09-03 09:00)
DX: R14.0 Abdominal distension (gaseous) (principal); K44.9 Diaphragmatic hernia without obstruction or gangrene; K29.70 Gastritis, unspecified, without bleeding
CPT/HCPCS: 43239

== ENCOUNTER 2023-09-29 11:05 | Emergency (ER) | payer MEDICARE, BC, SELFPAY ==
[2023-09-29 11:05] VITALS: BP 153/81; PULSE 69; RESP 20; TEMP 36.6; O2SAT 96; BMI 28.1
--- NOTE | 2023-09-29 11:15 | ED_ITS ---
Discharge Plan Disposition Patient Disposition: Home, Self-Care Condition: Good Prescriptions Prescriptions: New amoxicillin-pot clavulanate 875-125 mg Tablet 1 tab PO Q12H Qty: 20 0RF No Action doxazosin [Cardura] 4 mg tablet 4 mg PO DAILY omeprazole 20 mg capsule,delayed release(DR/EC) 20 mg PO DAILY metoprolol succinate 25 mg tablet extended release 24 hr 25 mg PO DAILY Qty: 90 3RF pgllzqde-tuz-rjimy-vit K-lycop 400-20-370 mcg tablet 1 tab PO DAILY Shingrix (PF) 50 mcg/0.5 mL suspension for reconstitution 0.5 ml IM ONCE Qty: 1 0RF fexofenadine 180 mg tablet 180 mg PO DAILY Qty: 14 0RF clopidogrel [Plavix] 75 mg tablet 75 mg PO DAILY Qty: 90 3RF atorvastatin [Lipitor] 80 MG tablet 80 mg PO HS levothyroxine 150 mcg Tablet 150 mcg PO DAILY folic acid 1 MG tablet 1 mg PO DAILY aspirin 81 MG tablet,delayed release (DR/EC) 81 mg PO DAILY sildenafil [Viagra] 100 mg tablet 100 mg PO DAILY PRN (Reason: sexual activity) Rx Instructions: administer 30 minutes to 4 hours before activity pseudoephedrine HCl [Sudogest] 60 mg tablet 60 mg PO Q6H PRN (Reason: nasal congestion) Rx Instructions: Monitor Blood Pressure, may cause increase Referrals Follow up/Referrals: Riley Jhaveri MD [Primary Care Provider] - See instructions Activity Restrictions/Add. Instructions Additional Instructions/Restrictions: Take all medicine as prescribed May need ears flushed at PCP office Clinical Impressions Clinical Impression: Otitis media Instructions Patient Instructions: DI for Otitis Media (Middle Ear Infection)-Child Print Language Print Language: Algerian Discharge ED Provider: Noemy Fish [facility] [place] HPI General Stated complaint: ear pain, right ear Mode of Arrival: Ambulatory Source of Information: Patient Limitations: No Limitations Time Seen by Provider: 09/29/23 11:15 Description of Symptoms (Recalled from Triage Doc. by RN): PATIENT C/O RIGHT EAR PAIN THAT STARTED YESTERDAY AND SOME CLEAR DRAINAGE FROM THAT EAR THIS MORNING HEENT Symptoms (Recalled from RN notes): Yes Resp Symptoms (Recalled from RN notes): No Skin Symptoms (Recalled from RN notes): No MS Symptoms (Recalled from RN notes): No Functional Status (Recalled from RN notes): WNL History of Present Illness Provider Complaint: Right ear pain X 2 days. Clear drainage this am. No fever. Onset (ago): day(s) (2) Relieving factors: none Exacerbating factors: none Associated symptoms: denies other symptoms Treatments prior to arrival: none Related Data Home Medications ?Medication ?Instructions ?Recorded ?Confirmed atorvastatin 80 mg tablet (Lipitor) 80 mg PO HS Cholesterol 04/15/18 09/03/23 folic acid 1 mg tablet 1 mg PO DAILY Supplement 09/20/19 09/03/23 aspirin 81 mg tablet,delayed 81 mg PO DAILY Heart Health 09/21/19 09/03/23 release levothyroxine 150 mcg tablet 150 mcg PO DAILY Thyroid 12/17/21 09/03/23 doxazosin 4 mg tablet (Cardura) 4 mg PO DAILY 01/31/23 09/03/23 skgknxycsifr-uqz-afirr acid-vit 1 tab PO DAILY 03/27/23 09/03/23 K-lycop 400 mcg-20 mcg-370 mcg tablet omeprazole 20 mg capsule,delayed 20 mg PO DAILY 04/16/23 09/03/23 release pseudoephedrine HCl 60 mg tablet 60 mg PO Q6H PRN nasal congestion 08/30/23 09/03/23 (Sudogest) sildenafil 100 mg tablet (Viagra) 100 mg PO DAILY PRN sexual activity 08/30/23 09/03/23 Previous Rx's ?Medication ?Instructions ?Recorded clopidogrel 75 mg tablet (Plavix) 75 mg PO DAILY Platelet Inhibitor 02/14/23 #90 tabs fexofenadine 180 mg tablet 180 mg PO DAILY #14 tabs 03/27/23 varicella-zoster glycoE [id number] 0.5 ml IM ONCE #1 ea 03/27/23 adj(PF) 50 mcg/0.5 mL IM susp, kit (Shingrix (PF)) metoprolol succinate 25 mg 25 mg PO DAILY #90 tabs 04/16/23 tablet,extended release 24 hr amoxicillin 875 mg-potassium 1 tab PO Q12H #20 tabs 09/29/23 clavulanate 125 mg tablet Allergies Allergy/AdvReac Type Severity Reaction Status Date / Time No Known Allergies Allergy Verified 09/03/23 07:59 Worker's Comp Is this a Worker's Comp case?: No PFSH PFS Disclaimer: The information contained in this section may have been updated after the patient was seen, as this information can be updated by other users. Medical History Nausea Atrial fibrillation Hyperlipidemia Carotid artery stenosis Moderate mitral regurgitation TIA (transient ischemic attack) Thoracic aortic aneurysm Shingles Acute pancreatitis Thoracic aortic aneurysm Diastolic dysfunction Mitral regurgitation Atrial fibrillation ARNALDO (obstructive sleep apnea) CAD (coronary artery disease) Surgical History History of colonoscopy H/O hemorrhoidectomy Hx of heart artery stent History of cholecystectomy Family History Other No significant family history Social History Smoking Status: Former smoker tobacco type: cigarettes packs per day: 1 years smoked: 5 how long ago did patient quit smokin alcohol intake: never substance use type: denies use current occupational status: retired Travel in the last 8 weeks: None household members: spouse housing: house current occupation: farm current occupational exposures/hazards: No caffeine: Yes ROS Obtained: Yes All systems reviewed & no additional complaints except as documented ENT Ears, Nose, Mouth, and Throat: Reports ear discharge and Reports otalgia Physical Exam General General appearance: alert and in no apparent distress Head Head exam: atraumatic, normocephalic and normal inspection ENT ENT exam: Present normal exam, normal oropharynx, mucous membranes moist and normal external ear exam Expanded ENT Exam TM/Canal exam: Right TM: erythema Respiratory Respiratory exam: Present normal lung sounds bilaterally; Absent respiratory distress Cardiovascular Cardiovascular exam: Present regular rate and normal rhythm; Absent JVD Extremities Exam Extremities exam: Present normal inspection, full ROM and normal capillary refill; Absent calf tenderness Neurological Exam Neurological exam: Present alert and oriented X3 Psychiatric Psychiatric exam: Present normal affect and normal mood Skin Skin exam: Present warm, dry, intact and normal color Lymphatic Lymphatic Findings: no adenopathy Medical Decision Making Ed Inquiry Pt receiving controlled substance: No Vital Signs: 09/29/23 11:05 Temperature 97.8 F Temperature Source Oral Pulse Rate [Left Brachial] 69 Respiratory Rate 20 Blood Pressure [Left Arm] 153/81 H Blood Pressure Mean [Left Arm] 105 Blood Pressure Source [Left Arm] Automatic Cuff Blood Pressure Position [Left Arm] Sitting 02 Sat by Pulse Oximetry 96 Oxygen Delivery Method Room Air
[2023-09-29 11:21] VITALS: BP 153/81; PULSE 69; RESP 17; TEMP 36.6; O2SAT 96
== END 2023-09-29 11:24 | disposition home or self-care (01) ==
PROVIDERS: Emergency Provider Physician Assistant; PCP Internal Medicine Adolescent Medicine
DX: H66.91 Otitis media, unspecified, right ear (principal)
CPT/HCPCS: 99212; 99214; G0463

== ENCOUNTER 2023-11-09 09:58 | Outpatient (CLI) | payer MEDICARE, BC, SELFPAY ==
--- NOTE | 2023-11-09 09:58 | CT_ITS ---
FINAL REPORT CLINICAL HISTORY: thoracic aortic aneursym COMPARISON: 10/20/2022 FINDINGS: Thin section axial CT images of the chest were obtained with contrast. 3D reformatted images were also obtained. This study was performed with techniques to keep radiation doses as low as reasonably achievable (ALARA). Individualized dose reduction techniques using automated exposure control or adjustment of mA and/or kV according to the patient''s size were employed. There is no evidence of pulmonary embolism. The ascending aorta measures 40 mm in diameter. Descending thoracic aorta measures 29 mm in diameter. Findings are visually stable from prior exam. There are multiple mildly enlarged mediastinal and hilar lymph nodes. There is no evidence of pulmonary mass or nodule. There is mild bibasilar atelectasis. Limited imaging of the upper abdomen demonstrates postoperative changes of cholecystectomy. IMPRESSION: Stable aneurysmal dilatation of the ascending and descending thoracic aorta. Reviewed, Interpreted and Dictated by Norman Hearn III, MD Transcribed by Lanette Ramírez Authenticated and [facility]
[2023-11-09 10:27] LABS: Blood Urea Nitrogen 17 mg/dl (9-20); Estimated Glomerular Filt Rate 71 ml/min (>60); GFR (African American) 86 ML/MIN (>60)
[2023-11-09] MEDS: 0.9 % SODIUM CHLORIDE 50 ML VIAL IV (10:51)
[2023-11-09] MEDS: IOPAMIDOL-370 (76%);100ML BOTTLE 100 ML IV (10:51)
[2023-11-09] MEDS: SODIUM CHLORIDE 0.9% 10ML SYR (RAD ONLY) 10 ML IV (10:51)
== END 2023-11-09 23:59 | disposition home or self-care (01) ==
LOC: RAD 09:58
PROVIDERS: PCP Internal Medicine Adolescent Medicine; Visit Provider Physician Assistant
DX: I71.20 Thoracic aortic aneurysm, without rupture, unspecified (principal)
CPT/HCPCS: 36415; 71275; 82565; 84520; Q9967

== ENCOUNTER 2024-01-24 10:34 | Outpatient (CLI) | payer MEDICARE, BC, SELFPAY ==
[2024-01-24 11:22] LABS: Alanine Aminotransferase 16 U/L (12-78); Albumin Level 3.9 g/dl (3.5-5.0); Alkaline Phosphatase 82 U/L (38-126); Anion Gap 10.5 mEq/L (5-15); Aspartate Amino Transferase 25 U/L (17-59); Bilirubin,Direct 0.3 mg/dl (0.0-0.4); Bilirubin,Indirect 0.4 mg/dL (0.0-0.9); Bilirubin,Total 0.7 mg/dl (0.2-1.3); Bilirubin,Unconjugated 0.4 mg/dL (0.0-1.1); Blood Urea Nitrogen 19 mg/dl (9-20); Carbon Dioxide 27 mmol/L (22.0-30.0); Chloride 107 mmol/L (98-107); Chol/HDL Ratio 2.7 (1-3.5); Cholesterol 113 mg/dl (140-200); Estimated Glomerular Filt Rate 71 ml/min (>60); GFR (African American) 86 ML/MIN (>60); Glucose 94 mg/dl (74-100); HDL Cholesterol 42 mg/dl (40-60); Potassium 4.5 mmoL/L (3.5-5.1); Sodium 140 mmol/L (136-145); Total Protein,Serum 6.4 g/dl (6.3-8.2); Triglycerides 110 mg/dl (30-150); VLDL Cholesterol 22 mg/dL (0-40)
[2024-01-24 11:25] LABS: Basophils # 0.1 K/mm3 (0-0.2); Basophils % 0.8 % (0.1-2.0); Eosinophils # 0.3 K/mm3 (0.0-0.4); Eosinophils % 2.5 % (0.1-12.0); Hematocrit 41.6 % (42.0-52.0); Hemoglobin 14.1 g/dL (14.1-18.0); Lymphocytes # 2.8 K/mm3 (0.7-4.5); Lymphocytes % 23.4 % (10-50); Mean Corpuscular HGB Conc 33.9 g/dL (31.8-35.4); Mean Corpuscular Hemoglobin 32.6 pg (27.0-31.2); Mean Corpuscular Volume 96.3 fl (80-94); Mean Platelet Volume 9.1 fl (7.4-10.4); Monocytes # 0.6 K/mm3 (0.1-1.0); Monocytes % 5.1 % (1.7-9.3); Neutrophils # 8.3 K/mm3 (1.8-7.8); Neutrophils % 68.1 % (37.0-80.0); Platelet Count 186 K/mm3 (142-424); Red Blood Count 4.33 M/mm3 (4.60-6.20); Red Cell Distribution Width 13.4 % (11.5-17.5); White Blood Count 12.1 K/mm3 (4.8-10.8)
[2024-01-24 11:33] LABS: Direct LDL Cholesterol 59.44 mg/dL (100-129)
[2024-01-24 11:40] LABS: Free T4 (Free Thyroxine) 1.32 ng/dl (0.78-2.19)
[2024-01-24 11:53] LABS: Thyroid Stimulating Hormone 4.28 uIU/mL (0.465-4.68)
== END 2024-01-24 23:59 | disposition home or self-care (01) ==
LOC: LAB 10:36
PROVIDERS: PCP Internal Medicine Adolescent Medicine; Visit Provider Physician Assistant
DX: I34.0 Nonrheumatic mitral (valve) insufficiency (principal); I48.0 Paroxysmal atrial fibrillation; E78.2 Mixed hyperlipidemia; R00.2 Palpitations; I65.23 Occlusion and stenosis of bilateral carotid arteries; I25.118 Atherosclerotic heart disease of native coronary artery with other forms of angina pectoris; Z95.5 Presence of coronary angioplasty implant and graft; I11.9 Hypertensive heart disease without heart failure; I71.20 Thoracic aortic aneurysm, without rupture, unspecified; G47.33 Obstructive sleep apnea (adult) (pediatric)
CPT/HCPCS: 36415; 80048; 80061; 80076; 83735; 84439; 84443; 85025

== ENCOUNTER 2024-02-05 07:30 | Outpatient (CLI) | payer MEDICARE, BC, SELFPAY ==
--- NOTE | 2024-02-05 | CA_ITS ---
APPROVED REPORT Exam: Pharmacologic Technologist: Anai Pendleton Ht: 5 ft 9 in Wt: 199 lbs BSA: 2.06 m2 HR: 62 bpm BP: 156/84 mmHg Stress Test Details Test: Lexiscan HR Resting HR: 62 bpm Max Heart Rate (APMHR): 137.873442 bpm Max HR Achieved: 86 bpm Target HR (85% APMHR): 116.237754 bpm % of APMHR: 62.77 Recovery HR: 76 bpm BP Resting BP: 156.0/84.0 mmHg Max BP: 168.0/66.0 mmHg Recovery BP: 151.0/83.0 mmHg ECG Resting ECG: Normal sinus rhythm Stress ECG Conclusion Symptoms: None Arrhythmias/Ectopy: PVC, PAC ST-T Changes: Less than [address] depression Conclusion: EKG portion unremarkable due to Lexiscan infusion. Electronically signed by : Josee Wagner MD 02/10/2024 23:26:25
--- NOTE | 2024-02-05 07:34 | NM_ITS ---
APPROVED REPORT Exam: Nuclear Stress Test Indication: palpitations Patient Location: Outpatient Stress Tech: Anai Pendleton [place] Tech:Shayla James CORYMaria Isabel RT(R)(N) Ht: 5 ft 9 in Wt: 200 lbs HR: 60 bpm BP: 156/84 mmHg BSA: 2.07 m2 Rhythm: NSR TID: 0.96 BMI: 29.5 History: palpitations Procedure: Patient received 0.4 mg of intravenous Lexiscan, resting heart rate 60 bpm, resting blood pressure 156/84 mmHg, with Lexiscan maximum heart rate achieved was 91 bpm which is 85 % of the maximum predicted heart rate and blood pressure was 168/66 mmHg. With Lexiscan, patient denied any complaint of chest pain. Cardiac Stress and Resting SPECT Images: Cardiac Stress and Resting SPECT images were obtained using technetium 99m Myoview 32.5 mCi stress and 10.83 mCi at rest. Resting and stress imaging in supine and prone positions demonstrate a small sized, moderate, reversible perfusion defect in the LV apical wall. Gated imaging demonstrates mild global hypokinesis. LVEF is calculated at 49%. Conclusion: Small sized, moderate, reversible perfusion defect in the LV apical wall. Findings are suggestive of reversible ischemia. Gated imaging demonstrates mild global hypokinesis. LVEF is calculated at 49%. Electronically signed by : Josee Wagner MD 02/06/2024 13:52:32
[2024-02-05] MEDS: SODIUM CHLORIDE 0.9% 10ML SYR (RAD ONLY) 10 ML IV ×2 (10:01)
[2024-02-05] MEDS: ISOTOPE MYOVIEW (PER STUDY) 1 DOSE IV (10:01)
[2024-02-05] MEDS: REGADENOSON 0.4MG/5ML SYRINGE 0.4 MG IV (10:01)
== END 2024-02-05 23:59 | disposition home or self-care (01) ==
LOC: RAD 07:31
PROVIDERS: PCP Internal Medicine Adolescent Medicine; Visit Provider Physician Assistant
DX: I51.89 Other ill-defined heart diseases (principal); R42 Dizziness and giddiness; I48.0 Paroxysmal atrial fibrillation; I25.10 Atherosclerotic heart disease of native coronary artery without angina pectoris; E03.9 Hypothyroidism, unspecified; E78.2 Mixed hyperlipidemia; R06.02 Shortness of breath; R00.2 Palpitations; R53.83 Other fatigue; R55 Syncope and collapse; I65.23 Occlusion and stenosis of bilateral carotid arteries
CPT/HCPCS: 78452; 93017; 93018; A9502; J2785

== ENCOUNTER 2024-02-18 07:44 | Day surgery (SDC) | payer MEDICARE, BC, SELFPAY ==
[2024-02-18] VITALS (14 sets, daily range): BP systolic 119–160; BP diastolic 55–93; PULSE 60–82; RESP 17–26; O2SAT 60–97; BMI 29.3
--- NOTE | 2024-02-18 07:13 | IR_ITS ---
APPROVED REPORT Patient Location: Outpatient PROCEDURES Left heart catheterization Left ventriculogram Selective coronary angiogram Drug-eluting stent deployment to the ostial proximal mid and distal dominant right coronary in a contiguous manner INDICATION Coronary artery disease, Accelerated angina pectoris, Abnormal Myoview, Informed consent was obtained prior to the procedure. COMPLICATIONS NONE Estimated Blood Loss: LESS THAN 10 ML TECHNIQUE One percent lidocaine used to anesthetize the right anterior aspect of the wrist. The right radial artery was accessed via the Seldinger technique. A 6 Polish sheath was placed in the right radial artery. 2.5 mg of Verapamil, 800 mcg of nitroglycerin, 1mg Lidocaine and 5000 U Heparin were given through the arterial sheath. The 6 Polish JL 3 guide catheter was also used to perform left heart catheterization, left ventriculogram and selective coronary angiogram. At the end the diagnostic angiogram therapeutic heparin was administered giving a therapeutic ACT and the guide catheter was placed in the right coronary followed by Choice PT extra-support wire placed distally. A guide liner was advanced and a 3.5 x 38 mm [place]ree frontier stent was deployed at 20 jeffrey reducing the proximal stenosis to 0%. An additional 3.5 x 38 mm [place] frontier stent was placed distal to the for stent yet still overlapping and then deployed at 20 jeffrey. Additional balloon was required in order to predilate the stenoses and allow delivery of the guide liner.. A total of 4 balloons were used for predilatation throughout the right coronary artery. A 4 mm x 15 mm [place] frontier stent was then placed in the ostial proximal segment of this dominant right coronary artery overlapping the for stent yet which was placed and then deployed at 20 jeffrey. After achieving excellent angiographic results apparatus was removed the sheath was removed good hemostasis was achieved using TR banding patient was transferred to the postop holding area in stable condition ANGIOGRAPHIC RESULTS The left main artery Has a stent in the ostial segment which extends throughout the left main artery and into the LAD. The stent is widely patent The left anterior descending artery Has an ostial stent extending into the midportion which is widely patent free of in-stent restenosis with excellent proximal distal transitioning. The remaining LAD has 30 and 40% mid vessel stenosis The circumflex artery Is nondominant widely patent with proximal calcified 20 and 30% stenosis The right coronary artery Large and dominant with proximal calcified 80% stenosis and distal calcified 80% stenosis The DAVIDSON ventriculogram reveals Normal 65% The left ventricular end-diastolic pressure 15 mmHg IMPRESSION Coronary artery disease as described above Successful reconstruction of the ostial proximal mid and distal dominant right coronary artery severe disease reduced to 0% with 3 contiguous drug-eluting stents PLAN 1. Dual antiplatelet therapy 2. Cardiac rehabilitation 3. Avoidance of tobacco products 4. Risk factor modification 5. LDL less than 55 to achieve that high intensity statin Electronically signed by : Michi Rodriguez MD 02/18/2024 13:04:55
[2024-02-18 08:22] LABS: Chloride 108 mmol/L (98-107)
[2024-02-18 08:23] LABS: Potassium 4.2 mmoL/L (3.5-5.1); Sodium 135 mmol/L (136-145)
[2024-02-18 08:25] LABS: Blood Urea Nitrogen 21 mg/dl (9-20); Creatinine Clearance Estimated 71 mL/min (50-200); Estimated Glomerular Filt Rate 71 ml/min (>60); GFR (African American) 86 ML/MIN (>60)
[2024-02-18 08:26] LABS: Anion Gap 6.2 mEq/L (5-15); Carbon Dioxide 25 mmol/L (22.0-30.0); Glucose 111 mg/dl (74-100)
[2024-02-18 08:39] LABS: Basophils # 0.1 K/mm3 (0-0.2); Basophils % 0.7 % (0.1-2.0); Eosinophils # 0.3 K/mm3 (0.0-0.4); Eosinophils % 3.6 % (0.1-12.0); Hematocrit 39.9 % (42.0-52.0); Lymphocytes # 2.2 K/mm3 (0.7-4.5); Lymphocytes % 23.7 % (10-50); Mean Corpuscular HGB Conc 35.1 g/dL (31.8-35.4); Mean Corpuscular Hemoglobin 33.1 pg (27.0-31.2); Mean Corpuscular Volume 94.4 fl (80-94); Monocytes # 0.5 K/mm3 (0.1-1.0); Monocytes % 5.9 % (1.7-9.3); Neutrophils # 6.1 K/mm3 (1.8-7.8); Neutrophils % 66.2 % (37.0-80.0); Platelet Count 179 K/mm3 (142-424); Red Blood Count 4.23 M/mm3 (4.60-6.20); Red Cell Distribution Width 13.4 % (11.5-17.5); White Blood Count 9.2 K/mm3 (4.8-10.8)
[2024-02-18] MEDS: VERAPAMIL 2.5MG/ML 2ML VIAL 2.5 MG IV (09:14)
[2024-02-18] MEDS: LIDOCAINE 1% 10ML MDV 20 ML IJ (09:14)
[2024-02-18] MEDS: diphenhydrAMINE 50MG/ML VIAL 50 MG IV (09:14)
[2024-02-18] MEDS: HEPARIN 1,000 UNITS/500ML NS (CATH LAB) 3000 UNIT IV (09:15)
[2024-02-18] MEDS: HEPARIN 1,000 UNITS/ML 10ML VIAL (CATH LAB) 10000 UNIT IV (09:15)
[2024-02-18] MEDS: 0.9 % SODIUM CHLORIDE 500 ML 25 ML IV (09:15)
[2024-02-18] MEDS: NITROGLYCERIN 800MCG/8ML SYR (CATH LAB) 800 MCG IA (09:15)
[2024-02-18] MEDS: FENTANYL 100MCG/2ML VIAL 50 MCG IV (09:18)
[2024-02-18] MEDS: MIDAZOLAM HCL 1MG/ML 5ML VIAL 1 MG IV (09:18)
[2024-02-18] MEDS: CLOPIDOGREL 75MG TAB 75 MG PO (10:20)
[2024-02-18] MEDS: IOPAMIDOL-370 (76%);100ML BOTTLE 125 ML IV (14:27)
[2024-02-18 14:45] LABS: CATHL Activated Clotting Time 265 SEC (74-125)
== END 2024-02-18 14:25 | disposition home or self-care (01) ==
PROVIDERS: PCP Internal Medicine Adolescent Medicine; Visit Provider Internal Medicine
DX: I25.118 Atherosclerotic heart disease of native coronary artery with other forms of angina pectoris (principal); R93.1 Abnormal findings on diagnostic imaging of heart and coronary circulation; I48.0 Paroxysmal atrial fibrillation; I77.1 Stricture of artery; G47.33 Obstructive sleep apnea (adult) (pediatric); E78.2 Mixed hyperlipidemia; I11.9 Hypertensive heart disease without heart failure; I65.23 Occlusion and stenosis of bilateral carotid arteries; I34.0 Nonrheumatic mitral (valve) insufficiency; Z79.899 Other long term (current) drug therapy; Z95.5 Presence of coronary angioplasty implant and graft; I71.20 Thoracic aortic aneurysm, without rupture, unspecified
CPT/HCPCS: 80048; 85025; 85347; 92928; 93458; 99152; 99153; C1725; C1769; C1874; C9600; J1200; J1644; J2250; J3010; Q9967

== ENCOUNTER 2024-02-20 10:24 | Outpatient (CLI) | payer MEDICARE, BC, SELFPAY ==
[2024-02-20 11:12] LABS: Basophils % 0.5 % (0.1-2.0); Eosinophils % 3.3 % (0.1-12.0); Hematocrit 38.1 % (42.0-52.0); Hemoglobin 12.9 g/dL (14.1-18.0); Lymphocytes # 2.3 K/mm3 (0.7-4.5); Lymphocytes % 23.8 % (10-50); Mean Corpuscular HGB Conc 33.9 g/dL (31.8-35.4); Mean Corpuscular Hemoglobin 31.9 pg (27.0-31.2); Mean Corpuscular Volume 94.3 fl (80-94); Mean Platelet Volume 11.2 fl (7.4-10.4); Neutrophils # 6.3 K/mm3 (1.8-7.8); Neutrophils % 64.2 % (37.0-80.0); Platelet Count 195 K/mm3 (142-424); Red Blood Count 4.04 M/mm3 (4.60-6.20); Red Cell Distribution Width 12.7 % (11.5-17.5); White Blood Count 9.8 K/mm3 (4.8-10.8)
[2024-02-20 11:13] LABS: Basophils # 0.1 K/mm3 (0-0.2); Eosinophils # 0.3 K/mm3 (0.0-0.4); Monocytes # 0.8 K/mm3 (0.1-1.0)
[2024-02-20 11:55] LABS: Chloride 108 mmol/L (98-107); Potassium 4.3 mmoL/L (3.5-5.1); Sodium 134 mmol/L (136-145)
[2024-02-20 11:58] LABS: Anion Gap 7.3 mEq/L (5-15); Blood Urea Nitrogen 23 mg/dl (9-20); Carbon Dioxide 23 mmol/L (22.0-30.0); Estimated Glomerular Filt Rate 71 ml/min (>60); GFR (African American) 86 ML/MIN (>60); Glucose 137 mg/dl (74-100)
== END 2024-02-20 23:59 | disposition home or self-care (01) ==
LOC: LAB 10:26
PROVIDERS: PCP Internal Medicine Adolescent Medicine; Visit Provider Internal Medicine
DX: Z95.5 Presence of coronary angioplasty implant and graft (principal); D64.9 Anemia, unspecified
CPT/HCPCS: 36415; 80048; 85025

== ENCOUNTER 2024-02-25 10:06 | Outpatient (CLI) | payer MEDICARE, BC, SELFPAY ==
--- NOTE | 2024-02-25 10:15 | XR_ITS ---
FINAL REPORT CLINICAL HISTORY: Neck Pain; radiates down left side FINDINGS: No fracture is present. Alignment is normal. No prevertebral soft tissue swelling seen. Multilevel moderate degenerative disc disease is present. Spondylosis is present. IMPRESSION: 1. Degenerative disc disease. 2. No fracture. Authenticated and ERN
== END 2024-02-25 23:59 | disposition home or self-care (01) ==
LOC: RAD 10:09
PROVIDERS: PCP Internal Medicine Adolescent Medicine; Visit Provider Internal Medicine
DX: M54.2 Cervicalgia (principal)
CPT/HCPCS: 72040

== ENCOUNTER 2024-08-04 14:11 | Outpatient (CLI) | payer MEDICARE, BC, SELFPAY ==
--- NOTE | 2024-08-04 | CA_ITS ---
FINAL REPORT CLINICAL HISTORY: Edema LLE x 1 month. As the day goes along left calf will swell and feel tight. By the next morning it has resolved. Denies trauma. HTN, HLD. COMPARISON: None FINDINGS: DUPLEX VENOUS SONOGRAPHY OF THE LEFT LOWER EXTREMITY Multiple transverse and longitudinal scans were performed of the femoropopliteal deep venous system, with augmentation and compression maneuvers. HISTORY: Pain FINDINGS: Normal phasic flow was noted in the visualized deep venous system. No intraluminal increased echogenicity is noted to suggest thrombus. There is normal compression and augmentation of the venous structures. No abnormal venous collaterals are seen. IMPRESSION: No evidence of deep venous thrombosis of the left lower extremity. Reviewed, Interpreted and Dictated by Rossana Zavala MD Transcribed by Mara Mac Authenticated and . [facility]
== END 2024-08-04 23:59 | disposition home or self-care (01) ==
LOC: RT 14:12
PROVIDERS: PCP Internal Medicine Adolescent Medicine; Visit Provider Internal Medicine Adolescent Medicine
DX: M79.605 Pain in left leg (principal); I10 Essential (primary) hypertension; E78.5 Hyperlipidemia, unspecified; R60.0 Localized edema
CPT/HCPCS: 93971

== ENCOUNTER 2024-12-08 10:45 | Outpatient (RCR) | payer MEDICARE, BC, SELFPAY ==
--- NOTE | 2024-12-08 11:26 | HMH.PTOPEV ---
PT Evaluation Rehab PT Outpatient Evaluation Start: 12/08/24 10:51 Freq: Status: Active Protocol: Document 12/08/24 11:19 PHORNE (Rec: 12/08/24 11:26 PHORNE [id number]) E-signed By Afshin Rivera, PT Outpatient Therapy Subjective History Subjective History This is the initial PT eval for Aamir Adam, 84 yowm who presents with c/o vertigo x ~3-4 wks with insidious onset of symptoms. He reports symptoms typically occur when laying down in bed at night or getting up from laying and last ~30 sec per episode. He reports feeling much better over the past 2 days without any vertigo noted. He also reports he is receiving treatment for sinus issues which began ~ 1 wk ago. He has hx of HTN, CAD with stents, and cardiac ablation. Chief Complaint Other Level of pain today 0 (0-10) Balance Eval Hx of Falls Hx Falls No Nystagmus Nystagmus Presence None Timed Up and Go Test 1. Is the Timed Up no and Go test result > or = to 12 seconds? 3. Is the Timed Up yes and Go Test result < 12 seconds? Oculomotor Gaze Oculomotor Gaze Nml: Vergence Smooth Pursuit Saccades VOR Cancellation Cover/Uncover Cross Cover Dynamic Gait Index Test Protocol Gait Level Surface Normal Query Text: Instructions: Walk at your normal speed from here to the next gris (20'). Grading: Gris the lowest category that applies. Change in Gait Speed Normal Query Text: Instructions: Begin walking at your normal pace (for 5') , when I tell you go , walk as fast as you can (for 5'). When I tell you slow , walk as slowly as you can ( for 5'). Grading: Gris the lowest category that applies. Gait with Horizontal Normal Head Turns Query Text: Instructions: Begin walking at your normal pace. When I tell you to look right , keep walking straight, but turn you head to the right. Keep looking to the right unit I tell you look left , then keep walking straight and turn your head to the left. Keep your head to the left until I tell you look straight , then keep walking straight, but return you head to the center. Grading: Gris the lowest category that applies. Gait with Vertical Normal Head Turns Query Text: Instructions: Begin walking at your normal pace. When I tell you to look up , keep walking staight, but tip your head up. Keep looking up until I tell you to look down , then keep walking straight and tip your head down. Keep your head down until I tell you look straight , then keep walking straight, but return your head to the center. Grading: Gris the lowest category that applies. Gait and Pivot Turn Normal Query Text: Instructions: Begin walking at your normal pace. When I tell you turn and stop , turn as quickly as you can to face the opposite direction and stop. Grading: Gris the lowest category that applies. Step Over Obstacle Normal Query Text: Instructions: Begin walking at your normal speed. When you come to the shoebox, step over it, not around it and keep walking. Grading: Gris the lowest category that applies. Step Around Normal Obstacles Query Text: Instructions: Begin walking at normal speed. When you come to the first cone (about 6' away) , walk around the right side of it. When you come to the second cone (6' past first cone), walk around it to the left. Grading: Gris the lowest category that applies. Steps Normal Query Text: Instructions: Walk up these stairs as you would at home. At the top, turn around and walk down . Grading: Gris the lowest category that applies. Scoring Dynamic Gait Index 24 Score Miscellaneous Dx PT Eval Objective Objective Tieton-Hallpike and Horizontal roll testing performed without nystagmus noted to either L or R side. This denotes no current BPPV. Outpatient Therapy Assessment Impairments Problems/ Impaired Self Care/Self Management Impairmments Prognosis Rehab Potential Innapropriate for Skilled Therapy Comment No current skilled therapy needs. Likely patient was suffering from BPPV which has now resolved spontaneously. Clinical Impression Consistent with Yes Diagnosis Outpatient Therapy Plan of Care Treatment Plan May Include Eval/Re-Eval Yes Frequency Times per week 0 Duration Number of Weeks 0 Addendums This patient is a No candidate for social or vocational rehab ? Patient/Guardian Yes verbally acknowledges understanding of treatment program and consents to further treatment? Patient/Guardian Yes verbally acknowledges understanding of diagnosis, prognosis and goals for treatment? Eval Complexity PT Charges 42493 - Moderate Complexity Shoulder/Elbow Eval Shoulder Objective Measurements Elbow Objective Measurements PHYSICIAN CERTIFICATION: I certify the specified therapy services for B W Kia are required, authorized, and reviewed every 30 days.
== END 2024-12-08 23:59 | disposition home or self-care (01) ==
LOC: PT 10:45
PROVIDERS: PCP Internal Medicine Adolescent Medicine; Visit Provider Nurse Practitioner Family
DX: H81.13 Benign paroxysmal vertigo, bilateral (principal)
CPT/HCPCS: 97162